=== PATIENT | female | born 1990 | race Caucasian/White ===

== ENCOUNTER 2018-05-25 07:21 | Emergency (ER) | payer MEDICAID, SELFPAY ==
[2018-05-25 07:30] VITALS: BP 140/83; PULSE 70; RESP 16; TEMP 36.6; O2SAT 99
[2018-05-25 07:32] LABS: Clarity Clear; Glucose 100 mg/dL (Negative); Nitrite Positive (Negative); pH 8.5 (5-8)
[2018-05-25 07:36] LABS: Bilirubin Color Interference (Negative); Blood Color Interference (Negative); Ketones Color Interference mg/dL (Negative)
[2018-05-25 07:37] LABS: Leukocyte Esterase Color Interference (Negative)
[2018-05-25 07:40] LABS: Bacteria Packed HPF (Negative); Casts Negative LPF (Negative); Crystals Negative HPF (Negative); Epithelial Cells Many HPF (Negative); Mucus Negative (Negative)
[2018-05-25 07:41] LABS: C & S Indicated? No/Sq. Contamination
--- NOTE | 2018-05-25 08:07 | DI.RPTCT_ITS ---
SYMPTOM/DIAGNOSIS: BILAT FLANK PAIN WITH LOW ABD PAIN ABDOMEN AND PELVIC CT: The study was carried out according to the usual protocol. No acute abnormality is noted in the lung bases. The liver is intact. The patient is status post cholecystectomy. The pancreas and spleen are intact. There is bilateral nephrolithiasis and moderately severe left hydronephrosis is demonstrated. Perinephric fat stranding is identified. There is ureterectasis without a definite stone identified. There is no evidence of right hydronephrosis, ureterectasis or ureterolithiasis. A distended bladder is demonstrated and there is an apparent very small stone on the bladder floor. There is no evidence of bowel obstruction. The appendix is normal. No localized inflammatory process or bowel wall mass is apparent. There is a sizable ventral hernia containing fat and small bowel loops with no evidence of incarceration. There is no evidence of free air or free fluid in the intraperitoneal space. There is no evidence of an aortic aneurysm. The bony structures appear intact. IMPRESSION: Bilateral nephrolithiasis is demonstrated and there is moderately severe left hydronephrosis and hydroureter without demonstration of a ureteral calculus. Note is made of a very small calculus on the bladder floor. On the right side, nephrolithiasis is evident. There is no evidence of a ureteral calculus. As noted above, there is a large ventral hernia containing fat and small bowel loops without evidence of incarceration.
--- NOTE | 2018-05-25 08:12 | ED.GENADUL_ITS ---
Disposition Clinical Impression: Pain due to calculus of kidney, UTI (urinary tract infection) Disposition: HOME Condition: Good Instructions: Urinary Tract Infection in Women (ED), Kidney Stones (ED) Additional Instructions: Please take Tylenol and Motrin for your pain. Please drink 8-10 cups of water per day. Please take the home prescription you were given at [facility] of Keflex 500 mg 3 times a day. Please take this as directed. Do not miss any doses. Please follow-up with Dr. Blevins's office as soon as a contact you for follow- up. If you do not hear from them please contact their office. If you notice any worsening of your symptoms, or any new symptoms such as vomiting, diarrhea, fever, chills, shortness of breath, chest pain, numbness, weakness, or fainting , please return immediately to the emergency department for reevaluation. Please follow up with your primary care provider as soon as possible for reassessment and reevaluation. As always, it was a pleasure participating in your medical care today. Referrals: Qasim Blevins MD [ [facility]] - Medical Decision Making - Lab Data Laboratory Tests 05/25/18 07:28 Urine Color [place] Urine Clarity Clear Urine pH 8.5 H Ur Specific [place] 1.020 Urine Protein 30 H Urine Ketones Color interference Urine Blood Color interference Urine Nitrite Positive H Urine Bilirubin Color interference Urine Urobilinogen 1.0 H Ur Leukocyte Esterase Color interference Urine RBC 3-5 H Urine WBC 3-5 Ur Epithelial Cells Many Urine Crystals Negative Urine Bacteria Packed Urine Casts Negative Urine Mucus Negative Ur Culture Indicated? No/sq. contamination Urine Glucose 100 - Medical Decision Making This is a 27-year-old female who presents with bilateral flank pain and abdominal pain with associated night sweats, vomiting, and discomfort. She was seen at [facility] last night where she had a urinalysis notably positive for UTI. She is given a dose of oral Keflex in the ED and sent home with a prescription. She has had no improvement of her symptoms and actual worsening of her symptoms since then. Physical exam demonstrates notable reproducible flank tenderness, as well as notable reproducible left and right lower quadrant tenderness on palpation. With reproducible tenderness I am concerned for potential acute abdominal process in addition to UTI. We will get a CT scan to rule out any appendicitis or diverticulitis. We will treat her pain rehydrate the patient. 9:48 AM Patient demonstrates no elevated white count, normal vital signs, she is afebrile. Urinalysis does demonstrate evidence concerning for mild urinary tract infection. The patient's pain is well controlled at this time. CT scan of the abdomen per radiologist demonstrates no acute process, evidence of nephrolithiasis, and one small stone in the bladder which may have been a passed stone. No significant fat stranding, signs of appendicitis or diverticulitis, and no evidence of cure and obstructing uropathy. With no evidence of obstructing uropathy, obstructing kidney stone, pain well controlled , and normal white count I do feel that the patient is safe for discharge. I did discuss the case with Dr. Blevins's office and spoke with his nurse practitioner Marilia Chaney and discussed the case with her including the laboratory findings, the CT imaging with no evidence of obstructing uropathy per radiology, and the medications that have been given as well as the follow- up plan and outpatient medications. She agrees and has no additional recommendations at this time. She is given 2 g of Rocephin here in the emergency department which I feel is appropriate at this time with no signs of severe pyelonephritis, or obstructing uropathy. The patient's renal function is minimally increased, however after hydration and continued hydration as well as suspected passing of a stone feel that this will normalize but does require close follow-up. I feel her symptoms most likely secondary to a past urolithiasis. With no identifiable pathology in the abdomen, and resolved pain and normal CT scan I feel that she is still stable for discharge. She has no primary care provider and so we will have her follow-up with Dr. Blevins's clinic as soon as possible for reassessment. She is moving to [place], we have discussed with case management potential PCP however because this is out of her jurisdiction we will discuss with patient how she can find follow-up with a primary care provider in new location. We discussed red flags which to return including systemic signs of infection, as well as other potential intra- abdominal pathologies and patient understands. I have extensively reviewed the treatment plan and discharge instructions with the patient. I have addressed all patient concerns at this time. The patient was made aware of what symptoms to monitor for that would warrant a return to the emergency department. Discussed the plan with the patient, they demonstrate verbal understanding and agreement with our assessment and plan at this time. History of Present Illness - General Chief complaint: Urinary Stated complaint: KIDNEY PAIN Time Seen by Provider: 05/25/18 07:42 - History of Present Illness Initial comments: This is a 27-year-old female with a past medical history of bladder infections, pyelonephritis, and urolithiasis. She presents today complaining of flank pain. She states that it started last night, it occurs in both flanks and radiates towards her groin. He was mild last night she went to [facility] where urinalysis was positive for evidence of nitrites, leukocyte esterase, bacteria, and elevated WBCs compared RBCs. She was given 1 dose of oral Keflex there, and then sent home with a prescription for Keflex. The patient has taken Tylenol and Motrin, last time at 2 AM, and has had no improvement of her symptoms since then. She states that her symptoms actually feel worse now. She has had associated sweats and chills throughout the night, as well as worsening flank pain, and one episode of nausea and vomiting. She denies any diarrhea, hematemesis, or hematochezia. She states that this feels similar to her previous UTIs but noticeably worse. She states that it feels dissimilar from her previous kidney stone episodes. The patient denies any dysuria, hematuria, increase in urinary frequency. Patient denies any other systemic symptoms. Past surgical history is positive for hysterectomy and a C- section. Patient denies any IV or illicit drug use. She is regularly on methadone per home medication list. Patient denies any other complaints at this time. She denies any pertinent family or social history. - Related Data Methadone HCl 70 mg PO DAILY #70 mg 07/23/16 Docusate Sodium [Colace] 100 mg PO BID #60 cap 08/18/16 Ibuprofen 800 mg PO PRN PRN 04/22/17 Allergies Allergy/AdvReac Type Severity Reaction Status Date / Time No Known Allergies Allergy Unverified 05/25/18 07:35 Review of Systems Other: 10 point review of systems was performed, pertinent positives and negatives are noted in the history of present illness. Past Medical History - Past Medical History drug abuse, pancreatitis, hep c Surgical history: cholecystectomy, - Social History Alcohol use: none Drug use: none General Exam - Other Other exam information: 1.Const: Well-nourished, Well-developed, appearing stated age 2.Eyes: PERRL, no conjunctival injection, and symmetrical lids. 3.ENT: Atraumatic external nose and ears. Moist MM. Neck: Symmetric, trachea midline, No thyromegaly. 4.CVS: +S1/S2, No murmurs or gallops. Peripheral pulses 2+ and equal in all extremities. Brisk capillary refill in all extremities. 5.RESP: Unlabored respiratory effort. Clear to auscultation bilaterally. No wheezes rales or rhonchi 6.GI: Abdomen is soft, no guarding or rebound. Patient does have notable tenderness in all regions of the abdomen, particularly the left and right lower abdominal quadrants. She also has reproducible tenderness on percussion of the flanks bilaterally. Mild suprapubic tenderness. Negative Bautista sign. 7.MSK: Normocephalic/Atraumatic, Extremities w/o deformity or ttp No cyanosis or clubbing, Normal movement of all extremities 8.Skin: Warm, Dry. No rashes or lesions. 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 Sensation grossly intact, no focal neurologic deficits. 10.Psych: (AAO) x3. Appropriate mood and affect Course Vital Signs - 24 hr 05/25/18 07:30 Temperature 36.6 C Pulse 70 Respiratory 16 Rate Blood Pressure 140/83 Pulse Oximetry 99
[2018-05-25 08:15] LABS: Clarity Clear; Specific Gravity 1.022 (1.005-1.025)
[2018-05-25] MEDS: Normal Saline 1,000 ML 1000 ML IV (08:15)
[2018-05-25] MEDS: Acetaminophen 500 MG TAB 1000 MG PO (08:15)
[2018-05-25 08:16] LABS: Bilirubin Color Interference (Negative); Blood Color Interference (Negative); Glucose Color Interference mg/dL (Negative); Ketones Color Interference mg/dL (Negative); Leukocyte Esterase Color Interference (Negative); Nitrite Color Interference (Negative); Urobilinogen Color Interference EU/dL (Up TO 0.2)
[2018-05-25 08:20] LABS: Abs Immature Grans 0.03 k/cumm (0.0-0.09); Absolute Basophil Count 0.01 k/cumm (0.0-0.2); Absolute Lymphocyte Count 1.68 k/cumm (1.2-3.4); Absolute Monocyte Count 0.54 k/cumm (0.11-0.7); Basophils % 0.1; HCT 42.6 % (36.0-46.0); HGB 14.8 g/dL (12.0-15.5); Immature Grans % 0.3; Lymphocytes % 16.9; Mean Corp. HGB Concentration 34.7 g/dL (32.0-36.0); Mean Corpuscular Hemoglobin 28.8 pg (27.0-33.0); Mean Platelet Volume 8.1 fL (8.0-11.0); Monocytes % 5.4; Neutrophils % 77.3; Platelet Count 299 x1000/uL (130-400); RBC 5.13 m/cumm (4.00-5.20); RBC Distribution Width 12.9 % (11.7-14.6); White Blood Cell Count 9.96 k/cumm (4.4-10.8)
[2018-05-25] MEDS: Ketorolac 30 MG/ML VIAL IM (08:20)
[2018-05-25 08:24] LABS: Bacteria Moderate HPF (Negative); C & S Indicated? No/Sq. Contamination; Casts Negative LPF (Negative); Crystals Negative HPF (Negative); Epithelial Cells Moderate HPF (Negative); Mucus Trace (Negative); RBC 0-2 (0-2)
[2018-05-25 08:32] LABS: ALT 33 U/L (12-78); AST 27 U/L (15-37); Albumin 3.8 g/dL (3.4-5.0); Alkaline Phosphatase 70 U/L (46-116); Anion Gap 10.1 mmol/L (3-11); BUN 18 mg/dL (7-18); Bilirubin, Total 0.4 mg/dL (0.2-1.0); CO2 25.9 mmol/L (21.0-32.0); CREATININE 1.17 mg/dL (0.55-1.02); Calcium 8.7 mg/dL (8.5-10.1); Chloride 102 mmol/L (98-107); Estimated GFR 55.08 (mL/min/1.73m2); Glucose 113 mg/dL (70-100); Lipase 155 U/L (73-393); Potassium 3.9 mmol/L (3.5-5.1); Sodium 138 mmol/L (136-145)
[2018-05-25] MEDS: MORPHine 10 MG/ML VIAL 4 MG IVP (09:03)
--- NOTE | 2018-05-25 09:20 | NUR.NOTE ---
Nursing Note: has had breakfast , taken her am meds. has been easy to care for. has just asked for mental health person-pt states she is dying for a cigarette and wants to do something on an out patient basis. relayed to Dr Sanchez.
[2018-05-25 10:04] VITALS: BP 114/69; PULSE 63; RESP 16; TEMP 36.7; O2SAT 96
--- NOTE | 2018-05-25 15:19 | CMPROGNOTE_ITS ---
Care Management Progress Note 05/25-Dr. Sanchez requested assistance with an urology consult for kidney stone- passed and UTI. Dr Sanchez has spoken with Marilia Chaney NP in urology about this patient. [facility].
== END 2018-05-25 10:03 | disposition home or self-care (01) ==
PROVIDERS: Emergency Medicine; Emergency Provider Student in an Organized Health Care Education/Training Program
DX: N23 Unspecified renal colic (principal); N39.0 Urinary tract infection, site not specified; Z87.440 Personal history of urinary (tract) infections; Z87.442 Personal history of urinary calculi
CPT/HCPCS: 36415; 80053; 81025; 83690; 96361; 96365; 96372; 96375; 99284; 74176; 81003; 81015; 85025; 87086; J1885; J2270

== ENCOUNTER 2018-06-11 09:27 | Emergency (ER) | payer MEDICAID, SELFPAY ==
[2018-06-11 09:30] VITALS: BP 138/83; PULSE 98; RESP 16; TEMP 36.6; O2SAT 94
--- NOTE | 2018-06-11 10:04 | W.ED.GENAD ---
Discharge Plan Disposition Patient Disposition: HOME Condition: Improving Discharge Details Chief Complaint: RespSymp Clinical Impression: Acute bronchitis with bronchospasm ED Provider: Pradeep Alicea Home Meds and New Rx's Prescriptions: New prednisone 20 mg tablet 40 mg PO DAILY 5 Days Qty: 10 RF: 0 Continue methadone 10 MG/ML concentrate 70 mg PO DAILY Qty: 70 RF: 0 docusate sodium [Colace] 100 MG capsule 100 mg PO BID Qty: 60 RF: 4 ibuprofen 800 MG tablet 800 mg PO PRN PRNRF: 0 Discharge Instructions Instructions: Acute Bronchitis (ED) Medical Decision Making MDM Narrative Medical decision making narrative: This is a pleasant 27-year-old female smoker who presents with progressive cough and production of sputum over days time. She has had associated wheeze. On exam she has bilateral end expiratory wheeze but is not in respiratory distress. She likely does have a exacerbation of COPD, differential diagnosis would include bronchitis and pneumonia. The patient was given oral steroids, inhaled beta agonist, referred for chest x-ray. Patient improved with the intervention. Her chest x-ray is currently being read by the virtual radiology group. There is no infiltrate that I appreciate. We will start her on a course of antibiotics, burst steroids, she will be provided an albuterol inhaler with instruction. She will follow-up to establish primary care. HPI - General Adult General Mode of arrival: ambulatory. Date/Time Provider Initiated Documentation: 06/11/18 09:58. Limitations to Documentation: no limitations. Information obtained by: patient. History of Present Illness 27 year old F presents to the emergency department with the chief complaint of Wheezing and cough, described as mild and moderate, Quality is described as constant, and is localized to the chest. Patient reports no radiation. Patient started experiencing this day(s) and it has been constant. No relieving factors improve symptom(s), Other factors that worsen symptoms . Patient notes cough. HPI Narrative: 19-year-old female smoker presents with 7 days of progressive cough, wheeze, production of sputum that change to green over the past 2 days time. She has minimal associated constitutional symptoms but does complain of some loose stool and nausea with decreased p.o. intake. Positive sick contacts in the home. She continues to smoke approximately one half pack per day. No changes to medical history. She has otherwise recently been well Related Data Home Medications Medication Instructions Recorded Confirmed methadone 70 mg PO DAILY #70 mg 07/23/16 06/11/18 docusate sodium [Colace] 100 mg PO BID #60 cap 08/18/16 06/11/18 ibuprofen 800 mg PO PRN PRN 04/22/17 06/11/18 Previous Rx's Medication Instructions Recorded prednisone 40 mg PO DAILY 5 Days #10 tab 06/11/18 Allergies Allergy/AdvReac Type Severity Reaction Status Date / Time No Known Allergies Allergy Unverified 06/11/18 09:34 General Stated Complaint: RespSymp JAISON: 4 Review of Systems Review of Systems 8 systems reviewed and otherwise neg PFSH Family History Mother Substance abuse Alcohol abuse Essential hypertension Mental disorder Father Mental disorder Sister Mental disorder Medical History Alcohol abuse Drug abuse (10/20/15) Hepatitis C infection Infected dental carries (10/20/15) Pancreatitis Tobacco use Social History Smoking/Tobacco Use Status: Current every day alcohol intake: former substance use type: former substance user Date of last use: crack/cocaine jelani/latter-day: Episcopalian Surgical History section (~2007) Cholecystectomy (01/17/15) Exam Narrative Exam Narrative: GEN: awake, alert, oriented 3. Pleasant, well groomed, interactive. HEAD: Normocephalic, atraumatic ENT: Mucous membranes moist, oropharynx unremarkable, External ear exam unremarkable EYES: PERRL, EOMI NECK: Full ROM, no PATI, no menigismus CHEST/RESP: Nontender, bilateral and expiratory wheeze present, speaking in full sentences CARDIOVASCULAR: RRR, no murmur, rub hanna. 2+ Rad pulse bilateral ABDOMEN: Soft, nontender, no mass. +Bowel sounds EXT: Full ROM, no edema, no rash Neuro: Grossly normal neurologic exam, conversant, interactive. Psych: Speech fluent, thoughts congruent, affect normal Course Vital Signs Temperature 36.6 C 06/11/18 09:30 Pulse 98 H 06/11/18 09:30 Respiratory Rate 16 06/11/18 09:30 Blood Pressure 138/83 06/11/18 09:30 Pulse Oximetry 94 L 06/11/18 09:30 Temperature 36.6 C 06/11/18 09:30 Pulse 98 H 06/11/18 09:30 Respiratory Rate 16 06/11/18 09:30 Blood Pressure 138/83 06/11/18 09:30 Pulse Oximetry 94 L 06/11/18 09:30
--- NOTE | 2018-06-11 10:08 | ED.GENADUL_ITS ---
Discharge Plan Disposition Patient Disposition: HOME Condition: Improving Discharge Details Chief Complaint: RespSymp Clinical Impression: Acute bronchitis with bronchospasm ED Provider: Pradeep Alicea Home Meds and New Rx's Prescriptions: New prednisone 20 mg tablet 40 mg PO DAILY 5 Days Qty: 10 RF: 0 Continue methadone 10 MG/ML concentrate 70 mg PO DAILY Qty: 70 RF: 0 docusate sodium [Colace] 100 MG capsule 100 mg PO BID Qty: 60 RF: 4 ibuprofen 800 MG tablet 800 mg PO PRN PRNRF: 0 Discharge Instructions Instructions: Acute Bronchitis (ED) Medical Decision Making MDM Narrative Medical decision making narrative: This is a pleasant 27-year-old female smoker who presents with progressive cough and production of sputum over days time. She has had associated wheeze. On exam she has bilateral end expiratory wheeze but is not in respiratory distress. She likely does have a exacerbation of COPD , differential diagnosis would include bronchitis and pneumonia. The patient was given oral steroids, inhaled beta agonist, referred for chest x- ray. Patient improved with the intervention. Her chest x-ray is currently being read by the virtual radiology group. There is no infiltrate that I appreciate. We will start her on a course of antibiotics, burst steroids, she will be provided an albuterol inhaler with instruction. She will follow-up to establish primary care. HPI - General Adult General Mode of arrival: ambulatory . Date/Time Provider Initiated Documentation: 06/11/18 09:58 . Limitations to Documentation: no limitations . Information obtained by: patient . History of Present Illness 27 year old F presents to the emergency department with the chief complaint of Wheezing and cough, described as mild and moderate, Quality is described as constant, and is localized to the chest. Patient reports no radiation. Patient started experiencing this day(s) and it has been constant. No relieving factors improve symptom(s), Other factors that worsen symptoms . Patient notes cough. HPI Narrative: 19-year-old female smoker presents with 7 days of progressive cough, wheeze, production of sputum that change to green over the past 2 days time. She has minimal associated constitutional symptoms but does complain of some loose stool and nausea with decreased p.o. intake. Positive sick contacts in the home. She continues to smoke approximately one half pack per day. No changes to medical history. She has otherwise recently been well Related Data Home Medications Medication Instructions Recorded Confirmed methadone 70 mg PO DAILY #70 mg 07/23/16 06/11/18 docusate sodium [Colace] 100 mg PO BID #60 cap 08/18/16 06/11/18 ibuprofen 800 mg PO PRN PRN 04/22/17 06/11/18 Previous Rx's Medication Instructions Recorded prednisone 40 mg PO DAILY 5 Days #10 tab 06/11/18 Allergies Allergy/AdvReac Type Severity Reaction Status Date / Time No Known Allergies Allergy Unverified 06/11/18 09:34 General Stated Complaint: RespSymp JAISON: 4 Review of Systems Review of Systems 8 systems reviewed and otherwise neg PFSH Family History Mother Substance abuse Alcohol abuse Essential hypertension Mental disorder Father Mental disorder Sister Mental disorder Medical History Alcohol abuse Drug abuse (10/20/15) Hepatitis C infection Infected dental carries (10/20/15) Pancreatitis Tobacco use Social History Smoking/Tobacco Use Status: Current every day alcohol intake: former substance use type: former substance user Date of last use: crack/cocaine jelani/mu-ism: Hindu Surgical History section (~2007) Cholecystectomy (01/17/15) Exam Narrative Exam Narrative: GEN: awake, alert, oriented 3. Pleasant, well groomed, interactive. HEAD: Normocephalic, atraumatic ENT: Mucous membranes moist, oropharynx unremarkable, External ear exam unremarkable EYES: PERRL, EOMI NECK: Full ROM, no PATI, no menigismus CHEST/RESP: Nontender, bilateral and expiratory wheeze present, speaking in full sentences CARDIOVASCULAR: RRR, no murmur, rub hanna. 2+ Rad pulse bilateral ABDOMEN: Soft, nontender, no mass. +Bowel sounds EXT: Full ROM, no edema, no rash Neuro: Grossly normal neurologic exam, conversant, interactive. Psych: Speech fluent, thoughts congruent, affect normal Course Vital Signs Temperature 36.6 C 06/11/18 09:30 Pulse 98 H 06/11/18 09:30 Respiratory Rate 16 06/11/18 09:30 Blood Pressure 138/83 06/11/18 09:30 Pulse Oximetry 94 L 06/11/18 09:30 Temperature 36.6 C 06/11/18 09:30 Pulse 98 H 06/11/18 09:30 Respiratory Rate 16 06/11/18 09:30 Blood Pressure 138/83 06/11/18 09:30 Pulse Oximetry 94 L 06/11/18 09:30
[2018-06-11] MEDS: predniSONE 20 MG TAB 60 MG PO (10:13)
[2018-06-11 10:15] VITALS: RESP 18; RESP 19
[2018-06-11] MEDS: Albuterol/Ipratropium 3 ML UPD VIAL UPD (10:15)
--- NOTE | 2018-06-11 10:53 | DI.RAD_ITS ---
SYMPTOM/DIAGNOSIS: COUGH, WHEEZE, SMOKER PA AND LATERAL CHEST: Comparison is made with 02/09/16. Heart size and pulmonary vasculature are within normal limits. There is an infiltrate seen in the right middle lobe. The lungs are otherwise clear. No effusions or pneumothoraces are identified. The bones are intact. IMPRESSION: Right middle lobe infiltrate. This may represent a pneumonia. Follow up chest xray is recommended to document complete resolution of the infiltrate.
[2018-06-11 11:01] VITALS: BP 123/78; PULSE 95; RESP 16; O2SAT 3
[2018-06-11] MEDS: Albuterol HFA 8 GM 60 PUFF INH IH (11:05)
--- NOTE | 2018-06-11 11:33 | DI.VRAD_ITS ---
EXAM: XR Chest, 2 Views CLINICAL HISTORY: 27 years old, female; Signs and symptoms; Cough and wheezing; Patient HX: Productive cough x1 week, wheeze, smoker. TECHNIQUE: Frontal and lateral views of the chest. COMPARISON: CR - CHEST 2 VIEWS PA,LAT 02/09/2016 6:49 PM FINDINGS: The lung correia are clear bilaterally. No focal pulmonary consolidation is present. The cardiac silhouette is within normal limits. The costophrenic angles are sharp. The bony structures appear unremarkable. IMPRESSION: No evidence of acute cardiopulmonary disease. Dictated and Authenticated by: Marin Burger MD. Ordering:ALEXEY KENT MD
--- NOTE | 2018-06-13 11:18 | PDOC.ERCMPRO ---
Care Management Progress Note 06/13/18-Pt seen on 06/11/[address] for resp[address] Rajendra Alicea. Request for pt to establish PCP faxed too [facility] as Barney Lewis was senior production manager.
--- NOTE | 2018-06-13 11:19 | CMPROGNOTE_ITS ---
Care Management Progress Note 06/13/18-Pt seen on 06/11/18 for resp[address] symptoms [address] Rajendra Alicea. Request for pt to establish PCP faxed too [facility] as Barney Lewis was radiation technician.
== END 2018-06-11 11:08 | disposition home or self-care (01) ==
LOC: ER 11:09
PROVIDERS: Emergency Provider Emergency Medicine
DX: J20.9 Acute bronchitis, unspecified (principal)
CPT/HCPCS: 94640; 99284; 71046; J7512; J7620

== ENCOUNTER 2018-07-11 08:39 | Emergency (ER) | payer MEDICAID, SELFPAY ==
[2018-07-11 08:56] VITALS: BP 125/79; PULSE 91; RESP 17; TEMP 36.6; O2SAT 95
--- NOTE | 2018-07-11 09:22 | ED.GENADUL_ITS ---
Discharge Plan Disposition Patient Disposition: HOME Condition: Good Discharge Details Chief Complaint: DentalOral Clinical Impression: UTI (urinary tract infection), Chronic gingivitis Primary Care Provider: Unknown,Unknown ED Provider: Lex Maier Home Meds and New Rx's Prescriptions: New amoxicillin-pot clavulanate [Augmentin] 250-62.5 mg/5 mL suspension for reconstitution 5 ml PO TID 10 Days Qty: 150 RF: 0 hydrogen peroxide [Peroxide Sore Mouth Cleanser] 1.5 % solution 10 ml MM QID Qty: 1416 RF: 0 No Action methadone 10 MG/ML concentrate 90 mg PO DAILY Qty: 70 RF: 0 ibuprofen 800 MG tablet 800 mg PO PRN PRNRF: 0 Discharge Instructions Instructions: Urinary Tract Infection in Women (ED), Gingivostomatitis (ED) Referrals: [facility] Emergency Dept. [Outside] - Return if symptoms worsen Discharge Data Discharge Date/Time-TO BE ENTERED AT DEPARTURE: 07/11/18 10:10 Medical Decision Making I do not appreciate an abscess to drain. Her urine returned with >50 wbc's, bacteria and nitrite positive. I do believe she has a dental infection as well as a uti. I referenced PEPID and Augmentin was secondary choice for UTI. She was prescribed Augmentin 250 TID for ten days. Advised to f/u with dentist and/ or pcp if no improvement. Return to ED if symptoms worsen. She agreed with POC. Lab Data Lab results reviewed: Yes I reviewed the patient's lab results. Lab results narrative: Positive for nitrites, >wbc and bacteria. HPI General Date/Time Provider Initiated Documentation: 07/11/18 09:11 . Limitations to Documentation: no limitations . Information obtained by: patient and family . History of Present Illness 27 year old F presents to the emergency department with the chief complaint of dental infection and UTI, described as mild, and is localized to the mouth. Patient reports no radiation. Patient started experiencing this hour(s) (24 ) and it has been constant. No relieving factors improve symptom(s), No exacerbating factors reported . Patient notes no other symptoms.. Patient did receive the following treatments prior to arrival, none HPI Narrative: 27 y/o female here with c/o oral gum pain and swelling to her upper front lip for the last 48 hours. Also she has had burning with urination over the last 24 hours. She has provided a urine for UA. She tells me she started having burning with urination yesterday. Denies any N/V/D, fever or chills. Related Data Home Medications Medication Instructions Recorded Confirmed methadone 90 mg PO DAILY #70 mg 07/23/16 07/11/18 ibuprofen 800 mg PO PRN PRN 04/22/17 07/11/18 amoxicillin-pot clavulanate 5 ml PO TID 10 Days #150 ml 07/11/18 [Augmentin] hydrogen peroxide [Peroxide Sore 10 ml MM QID #1416 ml 07/11/18 Mouth Cleanser] Previous Rx's Medication Instructions Recorded amoxicillin-pot clavulanate 5 ml PO TID 10 Days #150 ml 07/11/18 [Augmentin] hydrogen peroxide [Peroxide Sore 10 ml MM QID #1416 ml 07/11/18 Mouth Cleanser] Allergies Allergy/AdvReac Type Severity Reaction Status Date / Time No Known Allergies Allergy Unverified 06/11/18 09:34 General Stated Complaint: DentalOral JAISON: 4 Review of Systems Constitutional Reports as per [facility] ENT Reports system reviewed and no additional complaints, except as [facility] Cardiovascular Reports system reviewed and no additional complaints, except as docu Respiratory Reports system reviewed and no additional complaints, except as docu Gastrointestinal Reports system reviewed and no additional complaints, except as docu Genitourinary Denies hematuria, Denies flank pain and Reports urinary urgency (with burning) Exam Const General: cooperative and well groomed Nutritional Appearance: overweight Orientation: alert, awake and oriented x3 HENMT Head: normal to inspection Ears: hearing grossly normal bilaterally and TM's normal bilaterally General nose exam: external nose normal Nose image: 2 1. swelling, no palbable or fluctuance noted Face and sinus: sinuses nontender Face images: 2 1. swelling noted Mouth: tongue normal, salivary ducts normal, oropharynx normal, no drooling, lip abnormal (swelling to upper lip), breath no malodorous and no trismus Teeth and gingiva: abnormal tooth or associated gingiva (moderate decay to all dentition with swelling to upper lip. No abscess palpated. ), caries and poor dentition Teeth image: 2 1. Most problematic, with moderate decay and mucosal redness and tenderness Throat: posterior oropharynx normal Resp Effort & Inspection: normal respiratory effort Auscultation: clear to auscultation bilaterally Cardio Rate: regular rate Rhythm: regular rhythm Heart Sounds: S1 normal and S2 normal GI Inspection: non-distended Palpation: soft Auscultation: normal bowel sounds Back/Spine/Pelvis Back: no CVA tenderness Skin General skin exam: no rashes or lesions noted Neuro General: alert, awake and oriented x3 Gait: normal gait Course Vital Signs Temperature 36.6 C 07/11/18 08:56 Pulse 91 H 07/11/18 08:56 Respiratory Rate 17 07/11/18 08:56 Blood Pressure 125/79 07/11/18 08:56 Pulse Oximetry 95 07/11/18 08:56 Temperature 36.6 C 07/11/18 08:56 Temperature Source Temporal Artery Scan 07/11/18 08:56 Pulse 91 H 07/11/18 08:56 Respiratory Rate 17 07/11/18 08:56 Respiratory Effort 07/11/18 09:00 Blood Pressure 125/79 07/11/18 08:56 Pulse Oximetry 95 07/11/18 08:56 Oxygen Delivery Method Room Air 07/11/18 08:56 Oxygen Flow Rate 0 07/11/18 08:56 Pain Level 6 07/11/18 08:56
[2018-07-11 09:34] LABS: Bilirubin Negative (Negative); Blood Negative (Negative); Clarity Clear; Glucose Negative (Negative); Ketones Negative (Negative); Leukocyte Esterase Trace (Negative); Nitrite Positive (Negative); Specific Gravity 1.015 (1.005-1.025); Urobilinogen 0.2 EU/dL (Up TO 0.2); pH 8.5 (5-8)
[2018-07-11] MEDS: Lidocaine 2% Viscous 15 ML CUP PO (09:44)
[2018-07-11 09:45] LABS: Bacteria Many HPF (Negative); C & S Indicated? Yes; Casts Negative LPF (Negative); Crystals Negative HPF (Negative); Epithelial Cells Few HPF (Negative); Mucus Trace (Negative); RBC Negative (0-2); WBC >50 HPF (0-5)
== END 2018-07-11 10:10 | disposition home or self-care (01) ==
PROVIDERS: Emergency Provider Nurse Practitioner Family
DX: K05.10 Chronic gingivitis, plaque induced (principal); N39.0 Urinary tract infection, site not specified; B96.89 Other specified bacterial agents as the cause of diseases classified elsewhere; R60.0 Localized edema
CPT/HCPCS: 87077; 99283; 81003; 81015; 87086; 87186

== ENCOUNTER 2018-08-28 15:39 | Emergency (ER) | payer MEDICAID, SELFPAY ==
[2018-08-28] VITALS (15 sets, daily range): BP systolic 99–136; BP diastolic 59–84; PULSE 71–88; RESP 6–19; TEMP 36.7–36.9; O2SAT 95–100
--- NOTE | 2018-08-28 15:46 | DI.RAD_ITS ---
SYMPTOMS/DIAGNOSIS: CHEST PAIN, COUGH PA AND LATERAL CHEST: Comparison 06/11/18. The heart is normal in size. The lungs are clear. The mediastinal structures and pleura appear intact. CONCLUSION: Normal chest.
--- NOTE | 2018-08-28 15:51 | W.ED.GENAD ---
Discharge Plan Disposition Patient Disposition: HOME Condition: Fair Discharge Details Chief Complaint: Chest Pain Clinical Impression: Chest pain Primary Care Provider: Unknown,Unknown ED Provider: Esther Pérez Home Meds and New Rx's Prescriptions: Continue methadone 10 MG/ML concentrate 90 mg PO DAILY Qty: 70 RF: 0 hydrogen peroxide [Peroxide Sore Mouth Cleanser] 1.5 % solution 10 ml MM QID Qty: 1416 RF: 0 ibuprofen 800 MG tablet 800 mg PO PRN PRNRF: 0 Discharge Instructions Instructions: Chest Pain (ED) Additional Instructions: Encourage hydration. Tylenol and/or Motrin as needed for discomfort. You may take 1,000mg of Tylenol every 6 hours as needed, 600mg of Ibuprofen every 6 hours needed for discomfort. At this time, you have decline second troponin. However, if your pain increased, you develop shortness of breath, fevers/chills or other new/worsening symptoms please seek care urgently once again. Please follow up with primary care this week for reevaluation. I have asked our acute care physical therapist to help facilitate follow up. Discharge Data Discharge Date/Time-TO BE ENTERED AT DEPARTURE: 08/28/18 17:26 Medical Decision Making Patient is a 27-year-old female presenting with chief complaint of chest pain. She reports that while sedentary, approximately 30 minutes prior to arrival, she began having central substernal chest pain that radiates up to the neck. She has no shortness of breath. States she has had a cough for the past month. Denies any fevers or chills. Denies any nausea or vomiting. Reports she has had chest pain similar to this historically. States the pain is 7 out of 10 at this time and is remained constant since onset. Reports the chest pain does increase with cough. Denies any recent trauma Has history of narcotic abuse, pancreatitis, UTI, back pain, scoliosis. She is status post hysterectomy On exam, patient appears nontoxic. Vital signs within normal limits. Lungs are clear on exam. Patient is noted to be in normal sinus rhythm, no murmur rub or gallops noted. Calves are soft and nontender. No pedal edema. Patient does not appear in any acute distress. Pain is easily reproducible with palpation of the chest. No palpable abnormality, no crepitus EKG reviewed by Dr. Blue. Patient is noted to have T wave abnormality, this is compared to previous EKG and remains unchanged. No acute ischemic findings. Patient is in normal sinus rhythm with a rate of 73. We will obtain laboratory evaluation, chest x-ray. Patient is endorsing discomfort. We will give her aspirin and Tylenol to help with pain. At this point, her pain does not sound cardiac in nature. No exertional component. This is easily reproducible on exam. This may be inflammatory based, possibly associated with cough. Also considered infectious source as she has had cough recently, lungs are clear. CXR and labs pending. Chest x-ray reviewed by radiologist. Advised no acute pulmonary disease. No acute changes compared to previous. No pleural effusion or pneumothorax. No consolidation. No Cardiomegaly. Labs reviewed, no acute abnormalities appreciated. No leukocytosis. D-dimer is within normal limits. Troponin is less than 0.02. Discussed these findings with the patient. Advised that this point there is no evidence of pneumonia, PE or other infectious source. Patient's age and history are also reassuring for this likely not being a cardiac source along with the patient's history of symptoms. EKG and initial tropinin are WNL. We did discuss again that her discomfort could be inflammatory based. I did advise, particularly as the pain began 30 minutes prior to arrival, we perform a repeat troponin. However, patient is refusing at this time as I do not have time for that. Patient was given aspirin and Tylenol to help with her discomfort which she reports that helped some. However, she is requesting further pain medication. I did offer the patient Toradol which she declined. Reports that never works. I discussed other nonnarcotic options with the patient and she declines. This point, vital signs remained stable, laboratory, EKG and imaging is reassuring. Patient I discussed the risks associated with missed cardiac events and she continues to decline repeat troponin. She is aware that she may return at any time for reevaluation and continued care. I did advise follow-up with primary care, I have asked her acute care physical therapist help facilitate follow-up in 1 week. We discussed new/worsening symptoms when to seek care urgently once again. All of her questions and concerns were addressed and she is in agreement with this plan. HPI General Mode of arrival: ambulatory. Date/Time Provider Initiated Documentation: 08/28/18 15:40. Limitations to Documentation: no limitations. Information obtained by: patient. History of Present Illness 27 year old F presents to the emergency department with the chief complaint of chest pain, described as moderate, with intensity rated at 6. Quality is described as aching, and is localized to the chest. Patient neck. Patient started experiencing this minute(s) (30) and it has been constant. No relieving factors improve symptom(s), Movement worsens symptoms and Other factors that worsen symptoms (coughing) . Patient notes chest pain and cough; denies fever/chills, headaches, loss of appetite, nausea/vomiting, rash and shortness of breath. Patient did receive the following treatments prior to arrival, none Related Data Home Medications Medication Instructions Recorded Confirmed methadone 90 mg PO DAILY #70 mg 07/23/16 08/28/18 ibuprofen 800 mg PO PRN PRN 04/22/17 08/28/18 hydrogen peroxide [Peroxide Sore 10 ml MM QID #1416 ml 07/11/18 08/28/18 Mouth Cleanser] Previous Rx's Medication Instructions Recorded hydrogen peroxide [Peroxide Sore 10 ml MM QID #1416 ml 07/11/18 Mouth Cleanser] Allergies Allergy/AdvReac Type Severity Reaction Status Date / Time No Known Allergies Allergy Unverified 08/28/18 15:50 General Stated Complaint: Chest Pain JAISON: 2 Review of Systems Constitutional Reports as per HPI, Denies chills, Denies fever(s), Denies headache(s), Denies lethargy and Denies poor appetite Eyes Denies change in vision ENT Denies headache(s) Cardiovascular Reports as per HPI, Reports chest pain, Reports chest pain at rest (patient was sedentary at the time pain came on, has been sedentary since. Did not appear uncomfortable while ambulating into the department.), Denies pedal edema, Denies edema, Denies lightheadedness, Denies palpitations, Denies dyspnea and Denies dyspnea on exertion Respiratory Reports as per HPI, Reports cough, Denies dyspnea, Denies dyspnea on exertion and Denies wheezing Gastrointestinal Reports as per HPI, Denies abdominal pain, Denies diarrhea, Denies nausea and Denies vomiting Genitourinary Denies system reviewed and no additional complaints, except as docu (she denies change in urinary habits) Musculoskeletal Reports as per HPI and Denies back pain Integumentary/Breasts Reports as per HPI and Denies rash Neurologic Reports as per HPI and Denies headache(s) Endocrine Denies palpitations Allergic/Immunologic Denies wheezing PFSH Alcohol abuse Drug abuse (10/20/15) Hepatitis C infection Infected dental carries (10/20/15) Pancreatitis Tobacco use Family History Mother Substance abuse Alcohol abuse Essential hypertension Mental disorder Father Mental disorder Sister Mental disorder section (~2007) Cholecystectomy (01/17/15) Social History Smoking/Tobacco Use Status: Current every day alcohol intake: former substance use type: former substance user Date of last use: crack/cocaine jelani/buddhism: Protestant Exam Const General: cooperative, healthy appearing, comfortable, no acute distress and well developed Nutritional Appearance: average body habitus and well nourished Orientation: alert, awake and oriented x3 HENMT Head: normal to inspection Ears: hearing grossly normal bilaterally Mouth: moist mucous membranes Chest Chest: normal palpation of entire chest wall, no crepitus and tenderness (patient has diffuse discomfort with AP chest wall compression) Resp Effort & Inspection: normal respiratory effort, able to speak in complete sentences and no respiratory distress Auscultation: clear to auscultation bilaterally, no rales, no rhonchi and no wheezes Cardio Rate: regular rate Rhythm: regular rhythm Heart Sounds: S1 normal and S2 normal GI Inspection: normal to inspection, no edema and non-distended Palpation: soft, no hepatosplenomegaly, not firm, no guarding, not rigid and nontender Auscultation: normal bowel sounds Back/Spine/Pelvis Back: no CVA tenderness Thoracic/Lumbar Spine: thoracic and lumbar spine normal to inspection Skin General skin exam: no rashes or lesions noted Trauma: no lacerations or abrasions Neuro General: alert, awake and oriented x3 Cognition: normal cognition Speech: speech normal Gait: normal gait Extrem General: normal to inspection, normal capillary refill, no pedal edema, no calf tenderness and normal gait Psych Appearance: grossly normal and well kempt Mental Status: mental status grossly normal Speech and Movement: speech and movement normal Course Vital Signs Temperature 36.7 C 08/28/18 15:46 Pulse 82 08/28/18 15:46 Respiratory Rate 16 08/28/18 15:46 Blood Pressure 136/80 08/28/18 15:46 Pulse Oximetry 100 08/28/18 15:46 Temperature 36.7 C 08/28/18 15:46 Temperature Source Skin 08/28/18 15:46 Pulse 82 08/28/18 15:46 Respiratory Rate 16 08/28/18 15:46 Respiratory Effort Non-Labored 08/28/18 15:46 Blood Pressure 136/80 08/28/18 15:46 Blood Pressure Position Sitting 08/28/18 15:46 Pulse Oximetry 100 08/28/18 15:46 Oxygen Delivery Method Room Air 08/28/18 15:46 Oxygen Flow Rate 0 08/28/18 15:46 Pain Level 7 08/28/18 15:46
--- NOTE | 2018-08-28 15:55 | ED.GENADUL_ITS ---
Discharge Plan Disposition Patient Disposition: HOME Condition: Fair Discharge Details Chief Complaint: Chest Pain Clinical Impression: Chest pain Primary Care Provider: Unknown,Unknown ED Provider: Esther Pérez Home Meds and New Rx's Prescriptions: Continue methadone 10 MG/ML concentrate 90 mg PO DAILY Qty: 70 RF: 0 hydrogen peroxide [Peroxide Sore Mouth Cleanser] 1.5 % solution 10 ml MM QID Qty: 1416 RF: 0 ibuprofen 800 MG tablet 800 mg PO PRN PRNRF: 0 Discharge Instructions Instructions: Chest Pain (ED) Additional Instructions: Encourage hydration. Tylenol and/or Motrin as needed for discomfort. You may take 1,000mg of Tylenol every 6 hours as needed, 600mg of Ibuprofen every 6 hours needed for discomfort. At this time, you have decline second troponin. However, if your pain increased , you develop shortness of breath, fevers/chills or other new/worsening symptoms please seek care urgently once again. Please follow up with primary care this week for reevaluation. I have asked our pharmacist critical care to help facilitate follow up. Discharge Data Discharge Date/Time-TO BE ENTERED AT DEPARTURE: 08/28/18 17:26 Medical Decision Making Patient is a 27-year-old female presenting with chief complaint of chest pain. She reports that while sedentary, approximately 30 minutes prior to arrival, she began having central substernal chest pain that radiates up to the neck. She has no shortness of breath. States she has had a cough for the past month. Denies any fevers or chills. Denies any nausea or vomiting. Reports she has had chest pain similar to this historically. States the pain is 7 out of 10 at this time and is remained constant since onset. Reports the chest pain does increase with cough. Denies any recent trauma Has history of narcotic abuse, pancreatitis, UTI, back pain, scoliosis. She is status post hysterectomy On exam, patient appears nontoxic. Vital signs within normal limits. Lungs are clear on exam. Patient is noted to be in normal sinus rhythm, no murmur rub or gallops noted. Calves are soft and nontender. No pedal edema. Patient does not appear in any acute distress. Pain is easily reproducible with palpation of the chest. No palpable abnormality, no crepitus EKG reviewed by Dr. Blue. Patient is noted to have T wave abnormality, this is compared to previous EKG and remains unchanged. No acute ischemic findings. Patient is in normal sinus rhythm with a rate of 73. We will obtain laboratory evaluation, chest x-ray. Patient is endorsing discomfort. We will give her aspirin and Tylenol to help with pain. At this point, her pain does not sound cardiac in nature. No exertional component. This is easily reproducible on exam. This may be inflammatory based, possibly associated with cough. Also considered infectious source as she has had cough recently, lungs are clear. CXR and labs pending. Chest x-ray reviewed by radiologist. Advised no acute pulmonary disease. No acute changes compared to previous. No pleural effusion or pneumothorax. No consolidation. No Cardiomegaly. Labs reviewed, no acute abnormalities appreciated. No leukocytosis. D-dimer is within normal limits. Troponin is less than 0.02. Discussed these findings with the patient. Advised that this point there is no evidence of pneumonia, PE or other infectious source. Patient's age and history are also reassuring for this likely not being a cardiac source along with the patient's history of symptoms. EKG and initial tropinin are WNL. We did discuss again that her discomfort could be inflammatory based. I did advise , particularly as the pain began 30 minutes prior to arrival, we perform a repeat troponin. However, patient is refusing at this time as I do not have time for that. Patient was given aspirin and Tylenol to help with her discomfort which she reports that helped some. However, she is requesting further pain medication. I did offer the patient Toradol which she declined. Reports that never works. I discussed other nonnarcotic options with the patient and she declines. This point, vital signs remained stable, laboratory, EKG and imaging is reassuring. Patient I discussed the risks associated with missed cardiac events and she continues to decline repeat troponin. She is aware that she may return at any time for reevaluation and continued care. I did advise follow-up with primary care, I have asked her pharmacist critical care help facilitate follow-up in 1 week. We discussed new/worsening symptoms when to seek care urgently once again. All of her questions and concerns were addressed and she is in agreement with this plan. HPI General Mode of arrival: ambulatory . Date/Time Provider Initiated Documentation: 08/28/18 15:40 . Limitations to Documentation: no limitations . Information obtained by: patient . History of Present Illness 27 year old F presents to the emergency department with the chief complaint of chest pain, described as moderate, with intensity rated at 6. Quality is described as aching, and is localized to the chest. Patient neck. Patient started experiencing this minute(s) (30) and it has been constant. No relieving factors improve symptom(s), Movement worsens symptoms and Other factors that worsen symptoms (coughing) . Patient notes chest pain and cough; denies fever/chills, headaches, loss of appetite, nausea/vomiting, rash and shortness of breath. Patient did receive the following treatments prior to arrival, none Related Data Home Medications Medication Instructions Recorded Confirmed methadone 90 mg PO DAILY #70 mg 07/23/16 08/28/18 ibuprofen 800 mg PO PRN PRN 04/22/17 08/28/18 hydrogen peroxide [Peroxide Sore 10 ml MM QID #1416 ml 07/11/18 08/28/18 Mouth Cleanser] Previous Rx's Medication Instructions Recorded hydrogen peroxide [Peroxide Sore 10 ml MM QID #1416 ml 07/11/18 Mouth Cleanser] Allergies Allergy/AdvReac Type Severity Reaction Status Date / Time No Known Allergies Allergy Unverified 08/28/18 15:50 General Stated Complaint: Chest Pain JAISON: 2 Review of Systems Constitutional Reports as per HPI, Denies chills, Denies fever(s), Denies headache(s), Denies lethargy and Denies poor appetite Eyes Denies change in vision ENT Denies headache(s) Cardiovascular Reports as per HPI, Reports chest pain, Reports chest pain at rest (patient was sedentary at the time pain came on, has been sedentary since. Did not appear uncomfortable while ambulating into the department.), Denies pedal edema, Denies edema, Denies lightheadedness, Denies palpitations, Denies dyspnea and Denies dyspnea on exertion Respiratory Reports as per HPI, Reports cough, Denies dyspnea, Denies dyspnea on exertion and Denies wheezing Gastrointestinal Reports as per HPI, Denies abdominal pain, Denies diarrhea, Denies nausea and Denies vomiting Genitourinary Denies system reviewed and no additional complaints, except as docu (she denies change in urinary habits) Musculoskeletal Reports as per HPI and Denies back pain Integumentary/Breasts Reports as per HPI and Denies rash Neurologic Reports as per HPI and Denies headache(s) Endocrine Denies palpitations Allergic/Immunologic Denies wheezing PFSH Alcohol abuse Drug abuse (10/20/15) Hepatitis C infection Infected dental carries (10/20/15) Pancreatitis Tobacco use Family History Mother Substance abuse Alcohol abuse Essential hypertension Mental disorder Father Mental disorder Sister Mental disorder section (~2007) Cholecystectomy (01/17/15) Social History Smoking/Tobacco Use Status: Current every day alcohol intake: former substance use type: former substance user Date of last use: crack/cocaine jelani/nondenominational: Anabaptism Exam Const General: cooperative, healthy appearing, comfortable, no acute distress and well developed Nutritional Appearance: average body habitus and well nourished Orientation: alert, awake and oriented x3 HENMT Head: normal to inspection Ears: hearing grossly normal bilaterally Mouth: moist mucous membranes Chest Chest: normal palpation of entire chest wall, no crepitus and tenderness ( patient has diffuse discomfort with AP chest wall compression) Resp Effort & Inspection: normal respiratory effort, able to speak in complete sentences and no respiratory distress Auscultation: clear to auscultation bilaterally, no rales, no rhonchi and no wheezes Cardio Rate: regular rate Rhythm: regular rhythm Heart Sounds: S1 normal and S2 normal GI Inspection: normal to inspection, no edema and non-distended Palpation: soft, no hepatosplenomegaly, not firm, no guarding, not rigid and nontender Auscultation: normal bowel sounds Back/Spine/Pelvis Back: no CVA tenderness Thoracic/Lumbar Spine: thoracic and lumbar spine normal to inspection Skin General skin exam: no rashes or lesions noted Trauma: no lacerations or abrasions Neuro General: alert, awake and oriented x3 Cognition: normal cognition Speech: speech normal Gait: normal gait Extrem General: normal to inspection, normal capillary refill, no pedal edema, no calf tenderness and normal gait Psych Appearance: grossly normal and well kempt Mental Status: mental status grossly normal Speech and Movement: speech and movement normal Course Vital Signs Temperature 36.7 C 08/28/18 15:46 Pulse 82 08/28/18 15:46 Respiratory Rate 16 08/28/18 15:46 Blood Pressure 136/80 08/28/18 15:46 Pulse Oximetry 100 08/28/18 15:46 Temperature 36.7 C 08/28/18 15:46 Temperature Source Skin 08/28/18 15:46 Pulse 82 08/28/18 15:46 Respiratory Rate 16 08/28/18 15:46 Respiratory Effort Non-Labored 08/28/18 15:46 Blood Pressure 136/80 08/28/18 15:46 Blood Pressure Position Sitting 08/28/18 15:46 Pulse Oximetry 100 08/28/18 15:46 Oxygen Delivery Method Room Air 08/28/18 15:46 Oxygen Flow Rate 0 08/28/18 15:46 Pain Level 7 08/28/18 15:46
[2018-08-28] MEDS: Acetaminophen 500 MG TAB 1000 MG PO (16:08)
[2018-08-28] MEDS: Aspirin 81 MG CHEW 324 MG CH (16:08)
[2018-08-28 16:10] LABS: Abs Immature Grans 0.03 k/cumm (0.0-0.09); Absolute Basophil Count 0.01 k/cumm (0.0-0.2); Absolute Eosinophil Count 0.02 k/cumm (0.0-0.7); Absolute Lymphocyte Count 3.71 k/cumm (1.2-3.4); Absolute Monocyte Count 0.55 k/cumm (0.11-0.7); Absolute Neutrophil Count 4.19 k/cumm (1.2-6.7); Basophils % 0.1; Eosinophils % 0.2; HCT 42.8 % (36.0-46.0); HGB 14.8 g/dL (12.0-15.5); Immature Grans % 0.4; Lymphocytes % 43.6; Mean Corp. HGB Concentration 34.6 g/dL (32.0-36.0); Mean Corpuscular Hemoglobin 29.2 pg (27.0-33.0); Mean Corpuscular Volume 84.4 fL (80-95); Mean Platelet Volume 8.4 fL (8.0-11.0); Monocytes % 6.5; Neutrophils % 49.2; Platelet Count 333 x1000/uL (130-400); RBC 5.07 m/cumm (4.00-5.20); RBC Distribution Width 13.7 % (11.7-14.6); White Blood Cell Count 8.51 k/cumm (4.4-10.8)
[2018-08-28 16:21] LABS: ALT 67 U/L (12-78); AST 33 U/L (15-37); Albumin 3.6 g/dL (3.4-5.0); Alkaline Phosphatase 60 U/L (46-116); BUN 10 mg/dL (7-18); Bilirubin, Total 0.3 mg/dL (0.2-1.0); CREATININE 0.78 mg/dL (0.55-1.02); Calcium 8.6 mg/dL (8.5-10.1); Chloride 103 mmol/L (98-107); Glucose 77 mg/dL (70-100); Magnesium 1.8 mg/dL (1.8-2.4); Potassium 3.6 mmol/L (3.5-5.1); Prothrombin Time 9.8 sec (9.3-10.8); Sodium 139 mmol/L (136-145); Total Protein 8.1 g/dL (6.4-8.2)
[2018-08-28 16:26] LABS: Troponin I < 0.02 ng/mL (0.00-0.06)
--- NOTE | 2018-08-28 17:07 | DI.VRAD_ITS ---
EXAM: XR Chest, 2 Views EXAM DATE/TIME: 08/28/2018 4:17 PM CLINICAL HISTORY: 27 years old, female; Left-sided chest pain shooting up into neck, cough TECHNIQUE: XR of the chest, 2 views. COMPARISON: CR XR CHEST 2V PA LATERAL 06/11/2018 10:47 AM FINDINGS: Lungs: Unremarkable. No consolidation. Pleural space: Unremarkable. No pleural effusion. No pneumothorax. Heart/Mediastinum: Unremarkable. No cardiomegaly. Bones/joints: Unremarkable. IMPRESSION: No active pulmonary disease. No acute changes compared to 06/11/2018. Dictated and Authenticated by: Robert Berumen MD. Ordering:CARMEN LEES MD
[2018-08-28 17:12] LABS: D-Dimer 425 ng/mlFEU (<500)
== END 2018-08-28 17:26 | disposition home or self-care (01) ==
LOC: ER 17:29
PROVIDERS: Emergency Provider Physician Assistant
DX: R07.9 Chest pain, unspecified (principal); F17.210 Nicotine dependence, cigarettes, uncomplicated
CPT/HCPCS: 36415; 80053; 93005; 99285; 71046; 83735; 84484; 85025; 85379; 85610; 85730; 93010

== ENCOUNTER 2018-09-16 20:30 | Emergency (ER) | payer MEDICAID, SELFPAY ==
[2018-09-16 20:37] VITALS: BP 146/76; PULSE 86; RESP 16; TEMP 36.6; O2SAT 98
[2018-09-16] MEDS: Ketorolac 30 MG/ML VIAL IM (21:20)
[2018-09-16] MEDS: Penicillin V POTASSIUM 500 MG TAB PO (21:20)
[2018-09-16] MEDS: Benzocaine 20% 60 ML CAN TP (21:21)
[2018-09-16] MEDS: Bupivacaine 0.5% Pres-Free 30 ML VIAL IJ (21:21)
--- NOTE | 2018-09-16 21:26 | NUR.NOTE ---
patient medicated per [facility] order Nursing Note:
--- NOTE | 2018-09-16 22:05 | W.ED.GENAD ---
Discharge Plan Disposition Patient Disposition: HOME Condition: Improving Discharge Details Chief Complaint: DentalOral Clinical Impression: Abscess, dental Primary Care Provider: Unknown,Unknown ED Provider: Mohit Barahona Home Meds and New Rx's Prescriptions: New penicillin V potassium 500 mg tablet 500 mg PO QID 7 Days Qty: 28 RF: 0 Continued methadone 10 MG/ML concentrate 90 mg PO DAILY Qty: 70 RF: 0 ibuprofen 800 MG tablet 800 mg PO PRN PRNRF: 0 Discharge Instructions Instructions: Dental Abscess (ED) Additional Instructions: Return immediately to the emergency department for any new or significant worsening of symptoms such as fever chills, worsening swelling or severe pain, swelling of your tongue throat or any difficulty breathing. Otherwise it is recommended that you follow-up with a dentist in the next week for reevaluation. If unable to follow-up with a dentist please follow-up with your primary care to reassess your infection. Referrals: Primary Care Provider [Outside] Discharge Data Discharge Date/Time-TO BE ENTERED AT DEPARTURE: 09/16/18 22:21 Medical Decision Making Patient presenting to the emergency department chief complaint of dental pain. Patient states that pain started approximately within the last 24 hours and she has noted significant swelling to her right cheek. Patient denies any fever chills, swelling of her tongue lips or mouth, difficulty breathing. Physical exam shows a significant abscess adjacent to tooth #3 with fluctuance. Patient gave verbal consent to incision and drainage of the abscess. Please see note. Marcaine was injected into tissue for both pain relief and anesthetic for procedure along with patient receiving ketorolac. Patient placed up on penicillin and encouraged to return for new or worsening symptoms otherwise encouraged to follow-up with the dentist for reassessment and arrangement of definitive care. After discussion of diagnosis and plan of care patient has no further needs, questions, or concerns and states clear understanding to return to the emergency department for any worsening symptoms. HPI General Mode of arrival: ambulatory. Date/Time Provider Initiated Documentation: 09/16/18 20:40. Limitations to Documentation: no limitations. Information obtained by: patient and RN notes reviewed. History of Present Illness 27 year old F presents to the emergency department with the chief complaint of dental pain, described as moderate, Quality is described as sharp, and is localized to the face and right. Patient neck. Patient started experiencing this day(s) (1) and it has been constant. No relieving factors improve symptom(s), No exacerbating factors reported . Patient notes no other symptoms.. Patient did receive the following treatments prior to arrival, NSAID and Aspirin Related Data Home Medications Medication Instructions Recorded Confirmed methadone 90 mg PO DAILY #70 mg 07/23/16 09/16/18 ibuprofen 800 mg PO PRN PRN 04/22/17 09/16/18 penicillin V potassium 500 mg PO QID 7 Days #28 tab 09/16/18 Previous Rx's Medication Instructions Recorded penicillin V potassium 500 mg PO QID 7 Days #28 tab 09/16/18 Allergies Allergy/AdvReac Type Severity Reaction Status Date / Time No Known Allergies Allergy Unverified 09/16/18 20:42 General Stated Complaint: DentalOral JAISON: 3 Review of Systems Constitutional Denies chills and Denies fever(s) ENT Reports as per HPI, Denies change in voice, Reports dental pain, Denies dysphagia, Denies throat swelling and Denies tongue swelling Cardiovascular Denies chest pain and Denies dyspnea Respiratory Denies dyspnea Gastrointestinal Denies dysphagia Integumentary/Breasts Denies rash Allergic/Immunologic Denies throat swelling and Denies tongue swelling COUNTS INCLUDE 234 BEDS AT THE [facility] Medical History Alcohol abuse Drug abuse (10/20/15) Hepatitis C infection Infected dental carries (10/20/15) Pancreatitis Tobacco use Surgical History section (~2007) Cholecystectomy (01/17/15) Family History Mother Substance abuse Alcohol abuse Essential hypertension Mental disorder Father Mental disorder Sister Mental disorder Social History Smoking/Tobacco Use Status: Current every day alcohol intake: former substance use type: former substance user Date of last use: crack/cocaine jelani/lutheran: Gnosticism Exam Const General: cooperative Orientation: alert, awake and oriented x3 Limitations: mental status not altered HENIA Head: normal to inspection, normocephalic and atraumatic Ears: hearing grossly normal bilaterally, normal mastoids bilaterally and no periauricular adenopathy General nose exam: external nose normal Mouth: oropharynx normal, no drooling, no muffled voice, normal tongue and no trismus Teeth and gingiva: caries, poor dentition and other (erythema, fluctuation, induration gumline adjacent to tooth #3) Throat: posterior oropharynx normal, tonsils normal and uvula midline Eyes General: appearance normal, both eyes and all related structures Pupils: PERRL Neck Neck: normal visual inspection, full ROM, no meningeal signs, trachea midline, supple, no anterior neck swelling, lymphadenopathy (Mild right-sided anterior cervical) and no midline deformity Resp Effort & Inspection: normal respiratory effort and able to speak in complete sentences Course Vital Signs Temperature 36.6 C 09/16/18 20:37 Pulse 86 09/16/18 20:37 Respiratory Rate 16 09/16/18 20:37 Blood Pressure 146/76 H 09/16/18 20:37 Pulse Oximetry 98 09/16/18 20:37 Temperature 36.6 C 09/16/18 20:37 Temperature Source Temporal Artery Scan 09/16/18 20:37 Pulse 86 09/16/18 20:37 Respiratory Rate 16 09/16/18 20:37 Respiratory Effort Non-Labored 09/16/18 20:40 Blood Pressure 146/76 H 09/16/18 20:37 Blood Pressure Position Sitting 09/16/18 20:37 Pulse Oximetry 98 09/16/18 20:37 Oxygen Delivery Method Room Air 09/16/18 20:37 Oxygen Flow Rate 0 09/16/18 20:37 Pain Level 8 09/16/18 20:41 Procedures Abscess I/D Site: Other (Dental) Side (if applicable): Right Sedation/analgesia: None Local Anesthetic: Bupivicaine 0.5% Amount of anesthesia used (mL): 1 Technique: Needle Aspiration Amount of fluid expressed (mL): 0.5 Irrigation: No Packing used?: None Complications: Bleeding
--- NOTE | 2018-09-16 22:18 | NUR.NOTE ---
patient discharged home 2 penvk 500 mg tablets. Nursing Note:
[2018-09-16] MEDS: Penicillin V POTASSIUM 500 MG TAB 1000 MG PO (22:20)
== END 2018-09-16 22:21 | disposition home or self-care (01) ==
LOC: ER 22:37
PROVIDERS: Emergency Provider Nurse Practitioner Family
DX: R22.0 Localized swelling, mass and lump, head (principal); K04.7 Periapical abscess without sinus
CPT/HCPCS: 41800; 96372; J1885

== ENCOUNTER 2018-09-24 10:03 | Emergency (ER) | payer MEDICAID, SELFPAY ==
[2018-09-24] VITALS (21 sets, daily range): BP systolic 118–141; BP diastolic 76–84; PULSE 72–137; RESP 9–20; TEMP 36.6; O2SAT 94–100
--- NOTE | 2018-09-24 10:15 | DI.RAD_ITS ---
SYMPTOM/DIAGNOSIS: COUGH, PALPITATIONS PA AND LATERAL CHEST: Comparison is made with 08/28/18. The cardiac and mediastinal contours have a normal appearance. The lungs are well inflated and clear. No infiltrate or effusion is seen. There is no evidence of rib fracture or pneumothorax. IMPRESSION: Negative chest xray.
--- NOTE | 2018-09-24 10:16 | W.ED.GENAD ---
Discharge Plan Disposition Patient Disposition: HOME Condition: Improving Discharge Details Chief Complaint: Palpitatns Clinical Impression: Palpitations, Anxiety Primary Care Provider: None,None ED Provider: Pradeep Alicea Home Meds and New Rx's Prescriptions: Continued methadone 10 MG/ML concentrate 90 mg PO DAILY Qty: 70 RF: 0 acetaminophen [Tylenol Extra Strength] 500 mg Tablet 500 mg PO Q6H PRNRF: 0 ibuprofen [Ibuprofen IB] 200 mg Tablet 200 mg PO QID PRNRF: 0 Discontinued penicillin V potassium 500 mg Tablet 500 mg PO QID RF: 0 Discharge Instructions Instructions: Palpitations (ED), Anxiety (ED) Additional Instructions: Please follow through with your plan to establish primary care again. If you are unable to, please call back to the emergency department at [phone] and asked to speak to our case management. Home to rest today. Please note that you received a small amount of Ativan during her emergency department visit. Return if you develop chest pain, difficulty breathing, or any other acute concerns Medical Decision Making 27-year-old female states she had the fairly abrupt onset of palpitations with sensation of a skipped beat earlier this morning. He felt slightly nauseated anxious with this. She states she has had a recent cough with production of sputum. She arrives to emerge department with unremarkable vital signs and normal oxygenation. Differential diagnosis includes anxious reaction, benign palpitations such as PVC, unlikely to be ACS or thyroid instability. Patient placed in a log skidder, IV access established, given a fluid bolus, referred for laboratory testing, EKG, chest x-ray. While in the ED the patient had sinus tachycardia to 125 bpm. This did not reveal any acute ST segment changes and was not associated with chest pain or shortness of breath, it was associated with anxiety. Patient received fluid bolus and magnesium in the ED with a small aliquot of anxiolytic. She felt improved and had no further runs of rapid heart rate. Laboratories are reassuring. Do not feel that there is evidence of pulmonary embolism. Patient requesting discharge which I feel is appropriate. She understands return precautions. She is to follow-up and establish care with [facility] per her preference. Lab Data Lab results reviewed: Yes I reviewed the patient's lab results. Laboratory Results - last 24 hr 09/24/18 09/24/18 09/24/18 10:20 10:20 10:20 WBC 6.69 RBC 5.14 Hgb 14.9 Hct 43.3 MCV 84.2 MCH 29.0 MCHC 34.4 RDW 13.2 Plt Count 301 MPV 8.3 Immature Gran % 0.1 Neutrophils % 56.2 Lymphocytes % 35.7 Monocytes % 6.9 Eosinophils % 0.7 Basophils % 0.4 Absolute Neutrophils 3.75 Absolute Lymphocytes 2.39 Absolute Monocytes 0.46 Absolute Eosinophils 0.05 Absolute Basophils 0.03 Sodium 137 Potassium 3.9 Chloride 101 Carbon Dioxide 27.9 Anion Gap 8.1 BUN 15 Creatinine 0.89 Estimated GFR/1.73 m2 >= 60.00 Glucose 119 H Calcium 9.2 Magnesium 1.7 L Total Bilirubin 0.4 AST 61 H ALT 111 H Alkaline Phosphatase 69 Troponin I < 0.02 Total Protein 8.5 H Albumin 3.7 TSH 1.26 ECG Data Attestation: I personally reviewed and interpreted this ECG (s) as follows: Interpretation: Normal sinus rhythm, rate of 90 T, QRS is narrow, there is no ST segment elevation, normal intervals HPI General Mode of arrival: ambulatory. Date/Time Provider Initiated Documentation: 09/24/18 10:04. Limitations to Documentation: no limitations. Information obtained by: patient. History of Present Illness 27 year old F presents to the emergency department with the chief complaint of Palpitations, anxiety, recent cough, described as moderate, Quality is described as other (Skipping beats), and is localized to the chest. Patient reports no radiation. Patient started experiencing this minute(s) and it has been now resolved. No relieving factors improve symptom(s), No exacerbating factors reported . Patient notes cough, loss of appetite and other (Anxiety and stress). Patient did receive the following treatments prior to arrival, none Related Data Home Medications Medication Instructions Recorded Confirmed methadone 90 mg PO DAILY #70 mg 07/23/16 09/24/18 acetaminophen [Tylenol Extra 500 mg PO Q6H PRN 09/24/18 09/24/18 Strength] ibuprofen [Ibuprofen IB] 200 mg PO QID PRN 09/24/18 09/24/18 Allergies Allergy/AdvReac Type Severity Reaction Status Date / Time No Known Allergies Allergy Unverified 09/24/18 10:17 General Stated Complaint: Palpitatns JAISON: 2 Review of Systems Review of Systems 8 systems reviewed and otherwise - [facility] Medical History Alcohol abuse Drug abuse (10/20/15) Hepatitis C infection Infected dental carries (10/20/15) Pancreatitis Tobacco use Surgical History section (~2007) Cholecystectomy (01/17/15) Family History Mother Substance abuse Alcohol abuse Essential hypertension Mental disorder Father Mental disorder Sister Mental disorder Social History Smoking/Tobacco Use Status: Current every day alcohol intake: former substance use type: former substance user Date of last use: crack/cocaine jelani/voodoo: Faith Exam Narrative Exam Narrative: GEN: awake, alert, oriented 3. Pleasant, well groomed, interactive. HEAD: Normocephalic, atraumatic ENT: Mucous membranes moist, oropharynx unremarkable, External ear exam unremarkable EYES: PERRL, EOMI NECK: Full ROM, no PATI, no menigismus CHEST/RESP: Nontender, clear to auscultation bilateral, no wheeze/rhonchi/rales CARDIOVASCULAR: RRR, no murmur, rub hanna. 2+ Rad pulse bilateral ABDOMEN: Soft, nontender, no mass. +Bowel sounds EXT: Full ROM, no edema, no rash Neuro: Grossly normal neurologic exam, conversant, interactive. Psych: Speech fluent, thoughts congruent, affect normal Course Vital Signs Temperature 36.6 C 09/24/18 10:08 Pulse 90 09/24/18 10:08 Respiratory Rate 15 09/24/18 10:08 Blood Pressure 141/84 H 09/24/18 10:08 Pulse Oximetry 96 09/24/18 10:08 Temperature 36.6 C 09/24/18 10:08 Temperature Source Temporal Artery Scan 09/24/18 10:08 Pulse 90 09/24/18 10:08 Respiratory Rate 15 09/24/18 10:08 Respiratory Effort Non-Labored 09/24/18 10:15 Blood Pressure 141/84 H 09/24/18 10:08 Blood Pressure Position Supine 09/24/18 10:08 Pulse Oximetry 96 09/24/18 10:08 Oxygen Delivery Method Room Air 09/24/18 10:08 Oxygen Flow Rate 0 09/24/18 10:08 Pain Level 5 09/24/18 10:08
--- NOTE | 2018-09-24 10:19 | ED.GENADUL_ITS ---
Discharge Plan Disposition Patient Disposition: HOME Condition: Improving Discharge Details Chief Complaint: Palpitatns Clinical Impression: Palpitations, Anxiety Primary Care Provider: None,None ED Provider: Pradeep Alicea Home Meds and New Rx's Prescriptions: Continued methadone 10 MG/ML concentrate 90 mg PO DAILY Qty: 70 RF: 0 acetaminophen [Tylenol Extra Strength] 500 mg Tablet 500 mg PO Q6H PRNRF: 0 ibuprofen [Ibuprofen IB] 200 mg Tablet 200 mg PO QID PRNRF: 0 Discontinued penicillin V potassium 500 mg Tablet 500 mg PO QID RF: 0 Discharge Instructions Instructions: Palpitations (ED), Anxiety (ED) Additional Instructions: Please follow through with your plan to establish primary care again. If you are unable to, please call back to the emergency department at [phone] and asked to speak to our case management. Home to rest today. Please note that you received a small amount of Ativan during her emergency department visit. Return if you develop chest pain, difficulty breathing, or any other acute concerns Medical Decision Making 27-year-old female states she had the fairly abrupt onset of palpitations with sensation of a skipped beat earlier this morning. He felt slightly nauseated anxious with this. She states she has had a recent cough with production of sputum. She arrives to emerge department with unremarkable vital signs and normal oxygenation. Differential diagnosis includes anxious reaction, benign palpitations such as PVC, unlikely to be ACS or thyroid instability. Patient placed in a environmental monitoring technician, IV access established, given a fluid bolus, referred for laboratory testing, EKG, chest x-ray. While in the ED the patient had sinus tachycardia to 125 bpm. This did not reveal any acute ST segment changes and was not associated with chest pain or shortness of breath, it was associated with anxiety. Patient received fluid bolus and magnesium in the ED with a small aliquot of anxiolytic. She felt improved and had no further runs of rapid heart rate. Laboratories are reassuring. Do not feel that there is evidence of pulmonary embolism. Patient requesting discharge which I feel is appropriate. She understands return precautions. She is to follow-up and establish care with [facility] per her preference. Lab Data Lab results reviewed: Yes I reviewed the patient's lab results. Laboratory Results - last 24 hr 09/24/18 09/24/18 09/24/18 10:20 10:20 10:20 WBC 6.69 RBC 5.14 Hgb 14.9 Hct 43.3 MCV 84.2 MCH 29.0 MCHC 34.4 RDW 13.2 Plt Count 301 MPV 8.3 Immature Gran % 0.1 Neutrophils % 56.2 Lymphocytes % 35.7 Monocytes % 6.9 Eosinophils % 0.7 Basophils % 0.4 Absolute Neutrophils 3.75 Absolute Lymphocytes 2.39 Absolute Monocytes 0.46 Absolute Eosinophils 0.05 Absolute Basophils 0.03 Sodium 137 Potassium 3.9 Chloride 101 Carbon Dioxide 27.9 Anion Gap 8.1 BUN 15 Creatinine 0.89 Estimated GFR/1.73 m2 >= 60.00 Glucose 119 H Calcium 9.2 Magnesium 1.7 L Total Bilirubin 0.4 AST 61 H ALT 111 H Alkaline Phosphatase 69 Troponin I < 0.02 Total Protein 8.5 H Albumin 3.7 TSH 1.26 ECG Data Attestation: I personally reviewed and interpreted this ECG (s) as follows: Interpretation: Normal sinus rhythm, rate of 90 T, QRS is narrow, there is no ST segment elevation, normal intervals HPI General Mode of arrival: ambulatory . Date/Time Provider Initiated Documentation: 09/24/18 10:04 . Limitations to Documentation: no limitations . Information obtained by: patient . History of Present Illness 27 year old F presents to the emergency department with the chief complaint of Palpitations, anxiety, recent cough, described as moderate, Quality is described as other (Skipping beats), and is localized to the chest. Patient reports no radiation. Patient started experiencing this minute(s) and it has been now resolved. No relieving factors improve symptom(s), No exacerbating factors reported . Patient notes cough, loss of appetite and other (Anxiety and stress). Patient did receive the following treatments prior to arrival, none Related Data Home Medications Medication Instructions Recorded Confirmed methadone 90 mg PO DAILY #70 mg 07/23/16 09/24/18 acetaminophen [Tylenol Extra 500 mg PO Q6H PRN 09/24/18 09/24/18 Strength] ibuprofen [Ibuprofen IB] 200 mg PO QID PRN 09/24/18 09/24/18 Allergies Allergy/AdvReac Type Severity Reaction Status Date / Time No Known Allergies Allergy Unverified 09/24/18 10:17 General Stated Complaint: Palpitatns JAISON: 2 Review of Systems Review of Systems 8 systems reviewed and otherwise - [facility] Medical History Alcohol abuse Drug abuse (10/20/15) Hepatitis C infection Infected dental carries (10/20/15) Pancreatitis Tobacco use Surgical History section (~2007) Cholecystectomy (01/17/15) Family History Mother Substance abuse Alcohol abuse Essential hypertension Mental disorder Father Mental disorder Sister Mental disorder Social History Smoking/Tobacco Use Status: Current every day alcohol intake: former substance use type: former substance user Date of last use: crack/cocaine jelani/christianity: Anabaptism Exam Narrative Exam Narrative: GEN: awake, alert, oriented 3. Pleasant, well groomed, interactive. HEAD: Normocephalic, atraumatic ENT: Mucous membranes moist, oropharynx unremarkable, External ear exam unremarkable EYES: PERRL, EOMI NECK: Full ROM, no PATI, no menigismus CHEST/RESP: Nontender, clear to auscultation bilateral, no wheeze/rhonchi/rales CARDIOVASCULAR: RRR, no murmur, rub hanna. 2+ Rad pulse bilateral ABDOMEN: Soft, nontender, no mass. +Bowel sounds EXT: Full ROM, no edema, no rash Neuro: Grossly normal neurologic exam, conversant, interactive. Psych: Speech fluent, thoughts congruent, affect normal Course Vital Signs Temperature 36.6 C 09/24/18 10:08 Pulse 90 09/24/18 10:08 Respiratory Rate 15 09/24/18 10:08 Blood Pressure 141/84 H 09/24/18 10:08 Pulse Oximetry 96 09/24/18 10:08 Temperature 36.6 C 09/24/18 10:08 Temperature Source Temporal Artery Scan 09/24/18 10:08 Pulse 90 09/24/18 10:08 Respiratory Rate 15 09/24/18 10:08 Respiratory Effort Non-Labored 09/24/18 10:15 Blood Pressure 141/84 H 09/24/18 10:08 Blood Pressure Position Supine 09/24/18 10:08 Pulse Oximetry 96 09/24/18 10:08 Oxygen Delivery Method Room Air 09/24/18 10:08 Oxygen Flow Rate 0 09/24/18 10:08 Pain Level 5 09/24/18 10:08
[2018-09-24] MEDS: Normal Saline 1,000 ML 1000 ML IV (10:26)
[2018-09-24 10:29] LABS: Abs Immature Grans 0.01 k/cumm (0.0-0.09); Absolute Basophil Count 0.03 k/cumm (0.0-0.2); Absolute Eosinophil Count 0.05 k/cumm (0.0-0.7); Absolute Lymphocyte Count 2.39 k/cumm (1.2-3.4); Absolute Monocyte Count 0.46 k/cumm (0.11-0.7); Absolute Neutrophil Count 3.75 k/cumm (1.2-6.7); Basophils % 0.4; Eosinophils % 0.7; HCT 43.3 % (36.0-46.0); HGB 14.9 g/dL (12.0-15.5); Immature Grans % 0.1; Lymphocytes % 35.7; Mean Corp. HGB Concentration 34.4 g/dL (32.0-36.0); Mean Corpuscular Volume 84.2 fL (80-95); Mean Platelet Volume 8.3 fL (8.0-11.0); Monocytes % 6.9; Neutrophils % 56.2; Platelet Count 301 x1000/uL (130-400); RBC 5.14 m/cumm (4.00-5.20); RBC Distribution Width 13.2 % (11.7-14.6); White Blood Cell Count 6.69 k/cumm (4.4-10.8)
[2018-09-24 10:44] LABS: ALT 111 U/L (12-78); AST 61 U/L (15-37); Albumin 3.7 g/dL (3.4-5.0); Alkaline Phosphatase 69 U/L (46-116); Anion Gap 8.1 mmol/L (3-11); BUN 15 mg/dL (7-18); Bilirubin, Total 0.4 mg/dL (0.2-1.0); CO2 27.9 mmol/L (21.0-32.0); CREATININE 0.89 mg/dL (0.55-1.02); Calcium 9.2 mg/dL (8.5-10.1); Chloride 101 mmol/L (98-107); Glucose 119 mg/dL (70-100); Magnesium 1.7 mg/dL (1.8-2.4); Potassium 3.9 mmol/L (3.5-5.1); Sodium 137 mmol/L (136-145); Total Protein 8.5 g/dL (6.4-8.2)
[2018-09-24 10:45] LABS: Troponin I < 0.02 ng/mL (0.00-0.06)
--- NOTE | 2018-09-24 11:27 | DI.VRAD_ITS ---
EXAM: XR Chest, 2 Views EXAM DATE/TIME: 09/24/2018 10:16 AM CLINICAL HISTORY: 27 years old, female; Signs and symptoms; Cough and other: Palpitations TECHNIQUE: XR of the chest, 2 views. COMPARISON: CR XR CHEST 2V PA LATERAL 08/28/2018 4:08 PM FINDINGS: Lungs: Mildly hyperaerated lungs consistent with deep inspiratory effort vs mild reactive airway disease. Pleural space: Unremarkable. No pleural effusion. No pneumothorax. Heart/Mediastinum: Unremarkable. No cardiomegaly. Bones/joints: Unremarkable. IMPRESSION: Mildly hyperaerated lungs consistent with deep inspiratory effort vs mild reactive airway disease. Dictated and Authenticated by: Lex Wright MD. Ordering:ALEXEY Fernández MD
[2018-09-24] MEDS: MAGNESIUM SULFATE 2 GM/50 ML BAG IVPB (11:35)
[2018-09-24] MEDS: LORazepam 2 MG/ML VIAL 0.5 MG IVP (11:35)
[2018-09-24 11:53] LABS: TSH 1.26 uIU/mL (0.358-3.74)
== END 2018-09-24 13:07 | disposition home or self-care (01) ==
PROVIDERS: Emergency Provider Emergency Medicine
DX: R00.2 Palpitations (principal); F41.9 Anxiety disorder, unspecified
CPT/HCPCS: 36415; 80053; 93005; 96361; 96365; 96366; 96375; 99285; 71046; 83735; 84443; 84484; 85025; 93010; 99284; J2060

== ENCOUNTER 2018-09-26 13:16 | Emergency (ER) | payer MEDICAID, SELFPAY ==
[2018-09-26 13:17] VITALS: BP 127/80; PULSE 83; RESP 20; TEMP 36.8; O2SAT 96
--- NOTE | 2018-09-26 15:32 | ED.GENADUL_ITS ---
Discharge Plan Disposition Patient Disposition: HOME Condition: Good Discharge Details Chief Complaint: Anxiety Clinical Impression: Anxiety Reason For Visit: SIGIFREDO Primary Care Provider: None,None ED Provider: Doug Sanchez Home Meds and New Rx's Prescriptions: New lorazepam [Ativan] 0.5 mg tablet 0.5 mg PO ONCE Qty: 1 RF: 0 No Action methadone 10 MG/ML concentrate 90 mg PO DAILY Qty: 70 RF: 0 acetaminophen [Tylenol Extra Strength] 500 mg Tablet 500 mg PO Q6H PRNRF: 0 ibuprofen [Ibuprofen IB] 200 mg Tablet 200 mg PO QID PRNRF: 0 Discharge Instructions Instructions: Anxiety (ED) Additional Instructions: Please use the breathing techniques and de-escalation techniques that we have described to you. Take the medication only as absolutely indicated. Please follow-up promptly with your primary care provider. If you notice any worsening of your symptoms, or any new symptoms such as vomiting, diarrhea, fever, chills, shortness of breath, chest pain, numbness, weakness, or fainting , please return immediately to the emergency department for reevaluation. Please follow up with your primary care provider as soon as possible for reassessment and reevaluation. As always, it was a pleasure participating in your medical care today. Medical Decision Making This is a 27-year-old female with a past medical history of anxiety who presents today for palpitations and an anxiety attack. The patient states that she has been under significant amount of stress as of late, she states that she had an anxiety attack earlier today, her symptoms resolved by the time she arrived. She has been here a few times within the last 2 weeks before these episodes. Each time has resulted in a fairly benign workup. However on her last visit she did get Ativan from the provider that she was seen by and states that that worked best. She is requesting more at this time. At the time of my exam the patient was asymptomatic and she states that her symptoms had resolved without intervention. Heart rate was normal, EKG was benign. She did have some reproducible central chest pain over her sternum, no signs of trauma. I reviewed with the patient the patient's previous workup, and the results of it. I also offered for repeat imaging and repeat laboratory testing including for potential d-dimer although her likelihood is extremely low, and she is low risk Wells score and PERC negative. The patient did not want any additional laboratory or imaging workup at this time. With the clinical history of multiple stressors, multiple recent negative workups, and my current clinical exam that is inconsistent with an acute cardiac etiology, with reassuring vital signs and no signs of hemodynamic compromise, I do feel her signs and symptoms may be related to stress. She does have follow-up with a primary care provider scheduled within the next 2 weeks per the patient. With her refusal for any additional workup, and a reassuring exam, I do feel that she can be discharged home with close follow-up. We will give one small dose of Ativan for home use as needed as needed for anxiety. I have extensively reviewed the treatment plan and discharge instructions with the patient and their family. I have addressed all patient concerns at this time. The patient and family was made aware of what symptoms to monitor for that would warrant a return to the emergency department. Discussed the plan with the patient and family, they demonstrate verbal understanding and agreement with our assessment and plan at this time. EKG 15: 21 Rate 75, sinus rhythm, intervals normal, inverted T wave in V1 V2 and V3, no significant Q waves. No epsilon wave or delta wave. No ST elevations or depressions. Review of patient's multiple previous EKGs demonstrate intermittent inverted T waves in V1 through V4 on previous EKGs from 04/17, 08/28, and 09/24. Current EKG is consistent with prior EKGs. HPI General Date/Time Provider Initiated Documentation: 09/26/18 14:49 . HPI Narrative: This is a 27-year-old female with a past medical history of anxiety, Suboxone use, narcotic use in the past, and a past surgical history of a hysterectomy. She presents today for evaluation of anxiety and palpitations. Patient states that today she was at home and has been dealing with multiple various stressors in life. The stresses have been increasingly mounting, including watching her 4 children. She laid down for nap and felt overwhelmed by the stressors. She then developed palpitations, felt lightheaded, and slightly dizzy. She felt like the world was closing in on her. She called EMS, came for evaluation of her symptoms. She does admit to very minimal chest pain, and states that it is in her central sternal area. He comes and goes, and it is not exertional. No radiation to the neck or arms. Denies PE risk factors such as recent long car rides, immobilization, recent surgery, prior history of DVT or PE, family history of PE or DVT, morbid obesity, exogenous estrogen and smoking, hemoptysis, history of cancer. Patient has been here multiple times recently for this anxiety like scenario. She was tachycardic on those other visits, although she has no tachycardia now. She was last seen within the last 2 days, where she had a negative chest x-ray, negative laboratory workup, normal troponin, and benign electrolytes. She was discharged at that time. She does have follow-up with her primary care provider within the next 1-2 weeks per the patient. She denies any IV or illicit drug use at this time, she denies any cocaine or amphetamine use. Related Data Home Medications Medication Instructions Recorded Confirmed methadone 90 mg PO DAILY #70 mg 07/23/16 09/26/18 acetaminophen [Tylenol Extra 500 mg PO Q6H PRN 09/24/18 09/26/18 Strength] ibuprofen [Ibuprofen IB] 200 mg PO QID PRN 09/24/18 09/26/18 lorazepam [Ativan] 0.5 mg PO ONCE #1 tab 09/26/18 Previous Rx's Medication Instructions Recorded lorazepam [Ativan] 0.5 mg PO ONCE #1 tab 09/26/18 Allergies Allergy/AdvReac Type Severity Reaction Status Date / Time No Known Allergies Allergy Unverified 09/26/18 13:20 General Stated Complaint: Anxiety JAISON: 3 Review of Systems Review of Systems All systems reviewed & are unremarkable except as noted in HPI and below PFSH Social History Smoking/Tobacco Use Status: Current every day alcohol intake: former substance use type: former substance user Date of last use: crack/cocaine jelani/baptist: Uats[employer] Exam Narrative Exam Narrative: 1.Const: Well-nourished, Well-developed, appearing stated age 2.Eyes: PERRL, no conjunctival injection, and symmetrical lids. 3.ENT: Atraumatic external nose and ears. Moist MM. Neck: Symmetric, trachea midline, No thyromegaly. 4.CVS: +S1/S2, No murmurs or gallops. Peripheral pulses 2+ and equal in all extremities. Brisk capillary refill in all extremities. Reproducible chest pain over the superior sternum. No deformity. No paradoxical movements, 5.RESP: Unlabored respiratory effort. Clear to auscultation bilaterally. No wheezes rales or rhonchi 6.GI: Soft, Nontender/Nondistended, No hepatosplenomegaly. No guarding or rebound. 7.MSK: Normocephalic/Atraumatic, Extremities w/o deformity or ttp No cyanosis or clubbing, Normal movement of all extremities. No calf tenderness. 8.Skin: Warm, Dry. No rashes or lesions. 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 Sensation grossly intact, no focal neurologi c deficits. 10.Psych: (AAO) x3. Appropriate mood and affect Course Vital Signs Temperature 36.8 C 09/26/18 13:17 Pulse 83 09/26/18 13:17 Respiratory Rate 20 09/26/18 13:17 Blood Pressure 127/80 09/26/18 13:17 Pulse Oximetry 96 09/26/18 13:17 Temperature 36.8 C 09/26/18 13:17 Temperature Source Temporal Artery Scan 09/26/18 13:17 Pulse 83 09/26/18 13:17 Respiratory Rate 20 09/26/18 13:17 Respiratory Effort Non-Labored 09/26/18 13:17 Blood Pressure 127/80 09/26/18 13:17 Blood Pressure Position Sitting 09/26/18 13:17 Pulse Oximetry 96 09/26/18 13:17 Oxygen Delivery Method Room Air 09/26/18 13:17 Oxygen Flow Rate 0 09/26/18 13:17
[2018-09-26 15:39] VITALS: BP 127/80; PULSE 83; RESP 18; RESP 20; TEMP 36.8; O2SAT 96
== END 2018-09-26 15:40 | disposition home or self-care (01) ==
PROVIDERS: Emergency Provider Student in an Organized Health Care Education/Training Program
DX: F41.9 Anxiety disorder, unspecified (principal); R00.2 Palpitations; F17.210 Nicotine dependence, cigarettes, uncomplicated; Z53.29 Procedure and treatment not carried out because of patient's decision for other reasons
CPT/HCPCS: 93005; 99283; 93010

== ENCOUNTER 2018-09-28 09:48 | Emergency (ER) | payer MEDICAID, SELFPAY ==
[2018-09-28 09:54] VITALS: BP 139/74; PULSE 81; RESP 18; TEMP 36.3; O2SAT 97
--- NOTE | 2018-09-28 10:09 | W.ED.GENAD ---
Discharge Plan Disposition Patient Disposition: HOME Condition: Improving Discharge Details Chief Complaint: Chest Pain Clinical Impression: Gastritis Primary Care Provider: None,None ED Provider: Pradeep Alicea Home Meds and New Rx's Prescriptions: New sucralfate [Carafate] 100 mg/mL suspension 10 ml PO QID Qty: 420 RF: 2 Continued methadone 10 MG/ML concentrate 90 mg PO DAILY Qty: 70 RF: 0 acetaminophen [Tylenol Extra Strength] 500 mg Tablet 500 mg PO Q6H PRNRF: 0 No Action lorazepam [Ativan] 0.5 mg tablet 0.5 mg PO ONCE Qty: 1 RF: 0 ibuprofen [Ibuprofen IB] 200 mg Tablet 200 mg PO QID PRNRF: 0 Discharge Instructions Instructions: Gastritis (ED) Additional Instructions: Please begin Carafate 4 times daily. With meals and before morning medication. Please follow-up with [facility] and [facility] human services as discussed with our care management team. Medical Decision Making 27-year-old female states she has been having episodes near daily after taking her methadone dose in the morning of epigastric discomfort that is crampy and sometimes radiates to her abdomen. She is anxious about this and has had some palpitations. They resolved. She was seen in emergency department twice earlier on the and 26 September with workups that were unrevealing. She recently had a course of antibiotics. The discomfort seems somewhat worse since that time. She is afebrile, well-appearing, her exam is reassuring. Differential diagnosis includes gastritis, esophagitis. She has had a cholecystectomy and therefore do not feel that biliary pathology is likely. We will place her on a course of Carafate. Our care management team has seen her in the ER and is assisting her in establishing outpatient mental health services as well as primary care at [facility] ECG Data Attestation: I personally reviewed and interpreted this ECG (s) as follows: Interpretation: Normal sinus rhythm with a rate of 93, the QRS is narrow, there is no ST segment elevation, intervals unremarkable. HPI General Mode of arrival: ambulatory. Date/Time Provider Initiated Documentation: 09/28/18 09:52. Limitations to Documentation: no limitations. Information obtained by: patient. History of Present Illness 27 year old F presents to the emergency department with the chief complaint of Epigastric discomfort in the morning after taking methadone dose, described as moderate, Quality is described as dull, and is localized to the abdomen. Patient started experiencing this hour(s) and it has been constant. No relieving factors improve symptom(s), No exacerbating factors reported . Patient notes loss of appetite and nausea/vomiting; denies chest pain. Patient did receive the following treatments prior to arrival, none Related Data Home Medications Medication Instructions Recorded Confirmed methadone 90 mg PO DAILY #70 mg 07/23/16 09/26/18 acetaminophen [Tylenol Extra 500 mg PO Q6H PRN 09/24/18 09/26/18 Strength] ibuprofen [Ibuprofen IB] 200 mg PO QID PRN 09/24/18 09/26/18 lorazepam [Ativan] 0.5 mg PO ONCE #1 tab 09/26/18 sucralfate [Carafate] 10 ml PO QID #420 ml 09/28/18 Previous Rx's Medication Instructions Recorded lorazepam [Ativan] 0.5 mg PO ONCE #1 tab 09/26/18 sucralfate [Carafate] 10 ml PO QID #420 ml 09/28/18 Allergies Allergy/AdvReac Type Severity Reaction Status Date / Time No Known Allergies Allergy Unverified 09/26/18 13:20 General Stated Complaint: Chest Pain JAISON: 2 Review of Systems Review of Systems 6 systems reviewed and otherwise negative. No chest pain, shortness of breath, no syncopal episodes, no change to bowel or bladder habits. [facility] Social History Smoking/Tobacco Use Status: Current every day alcohol intake: former substance use type: former substance user Date of last use: crack/cocaine jelani/restorationist: Scientology Exam Narrative Exam Narrative: GEN: awake, alert, oriented 3. Pleasant, well groomed, interactive. HEAD: Normocephalic, atraumatic ENT: Mucous membranes moist, oropharynx unremarkable, External ear exam unremarkable EYES: PERRL, EOMI NECK: Full ROM, no PATI, no menigismus CHEST/RESP: Nontender, clear to auscultation bilateral, no wheeze/rhonchi/rales CARDIOVASCULAR: RRR, no murmur, rub hanna. 2+ Rad pulse bilateral ABDOMEN: Soft, minimal tenderness in the epigastrium, no rebound or guarding, no mass. +Bowel sounds EXT: Full ROM, no edema, no rash Neuro: Grossly normal neurologic exam, conversant, interactive. Psych: Speech fluent, thoughts congruent, affect normal Course Vital Signs Temperature 36.3 C L 09/28/18 09:54 Pulse 81 09/28/18 09:54 Respiratory Rate 18 09/28/18 09:54 Blood Pressure 139/74 09/28/18 09:54 Pulse Oximetry 97 09/28/18 09:54 Temperature 36.3 C L 09/28/18 09:54 Temperature Source Temporal Artery Scan 09/28/18 09:54 Pulse 81 09/28/18 09:54 Respiratory Rate 18 09/28/18 09:54 Respiratory Effort Non-Labored 09/28/18 09:54 Blood Pressure 139/74 09/28/18 09:54 Pulse Oximetry 97 09/28/18 09:54 Oxygen Delivery Method Room Air 09/28/18 09:54 Oxygen Flow Rate 0 09/28/18 09:54
--- NOTE | 2018-09-28 10:13 | ED.GENADUL_ITS ---
Discharge Plan Disposition Patient Disposition: HOME Condition: Improving Discharge Details Chief Complaint: Chest Pain Clinical Impression: Gastritis Primary Care Provider: None,None ED Provider: Pradeep Alicea Home Meds and New Rx's Prescriptions: New sucralfate [Carafate] 100 mg/mL suspension 10 ml PO QID Qty: 420 RF: 2 Continued methadone 10 MG/ML concentrate 90 mg PO DAILY Qty: 70 RF: 0 acetaminophen [Tylenol Extra Strength] 500 mg Tablet 500 mg PO Q6H PRNRF: 0 No Action lorazepam [Ativan] 0.5 mg tablet 0.5 mg PO ONCE Qty: 1 RF: 0 ibuprofen [Ibuprofen IB] 200 mg Tablet 200 mg PO QID PRNRF: 0 Discharge Instructions Instructions: Gastritis (ED) Additional Instructions: Please begin Carafate 4 times daily. With meals and before morning medication. Please follow-up with [facility] and [facility] human services as discussed with our care management team. Medical Decision Making 27-year-old female states she has been having episodes near daily after taking her methadone dose in the morning of epigastric discomfort that is crampy and sometimes radiates to her abdomen. She is anxious about this and has had some palpitations. They resolved. She was seen in emergency department twice earlier on the and 26 September with workups that were unrevealing. She recently had a course of antibiotics. The discomfort seems somewhat worse since that time. She is afebrile, well-appearing, her exam is reassuring. Differential diagnosis includes gastritis, esophagitis. She has had a cholecystectomy and therefore do not feel that biliary pathology is likely. We will place her on a course of Carafate. Our care management team has seen her in the ER and is assisting her in establishing outpatient mental health services as well as primary care at [facility] ECG Data Attestation: I personally reviewed and interpreted this ECG (s) as follows: Interpretation: Normal sinus rhythm with a rate of 93, the QRS is narrow, there is no ST segment elevation, intervals unremarkable. HPI General Mode of arrival: ambulatory . Date/Time Provider Initiated Documentation: 09/28/18 09:52 . Limitations to Documentation: no limitations . Information obtained by: patient . History of Present Illness 27 year old F presents to the emergency department with the chief complaint of Epigastric discomfort in the morning after taking methadone dose, described as moderate, Quality is described as dull, and is localized to the abdomen. Patient started experiencing this hour(s) and it has been constant. No relieving factors improve symptom(s), No exacerbating factors reported . Patient notes loss of appetite and nausea/vomiting; denies chest pain. Patient did receive the following treatments prior to arrival, none Related Data Home Medications Medication Instructions Recorded Confirmed methadone 90 mg PO DAILY #70 mg 07/23/16 09/26/18 acetaminophen [Tylenol Extra 500 mg PO Q6H PRN 09/24/18 09/26/18 Strength] ibuprofen [Ibuprofen IB] 200 mg PO QID PRN 09/24/18 09/26/18 lorazepam [Ativan] 0.5 mg PO ONCE #1 tab 09/26/18 sucralfate [Carafate] 10 ml PO QID #420 ml 09/28/18 Previous Rx's Medication Instructions Recorded lorazepam [Ativan] 0.5 mg PO ONCE #1 tab 09/26/18 sucralfate [Carafate] 10 ml PO QID #420 ml 09/28/18 Allergies Allergy/AdvReac Type Severity Reaction Status Date / Time No Known Allergies Allergy Unverified 09/26/18 13:20 General Stated Complaint: Chest Pain JAISON: 2 Review of Systems Review of Systems 6 systems reviewed and otherwise negative. No chest pain, shortness of breath, no syncopal episodes, no change to bowel or bladder habits. [facility] Social History Smoking/Tobacco Use Status: Current every day alcohol intake: former substance use type: former substance user Date of last use: crack/cocaine jelani/sikhism: Cheondoism Exam Narrative Exam Narrative: GEN: awake, alert, oriented 3. Pleasant, well groomed, interactive. HEAD: Normocephalic, atraumatic ENT: Mucous membranes moist, oropharynx unremarkable, External ear exam unremarkable EYES: PERRL, EOMI NECK: Full ROM, no PATI, no menigismus CHEST/RESP: Nontender, clear to auscultation bilateral, no wheeze/rhonchi/rales CARDIOVASCULAR: RRR, no murmur, rub hanna. 2+ Rad pulse bilateral ABDOMEN: Soft, minimal tenderness in the epigastrium, no rebound or guarding, no mass. +Bowel sounds EXT: Full ROM, no edema, no rash Neuro: Grossly normal neurologic exam, conversant, interactive. Psych: Speech fluent, thoughts congruent, affect normal Course Vital Signs Temperature 36.3 C L 09/28/18 09:54 Pulse 81 09/28/18 09:54 Respiratory Rate 18 09/28/18 09:54 Blood Pressure 139/74 09/28/18 09:54 Pulse Oximetry 97 09/28/18 09:54 Temperature 36.3 C L 09/28/18 09:54 Temperature Source Temporal Artery Scan 09/28/18 09:54 Pulse 81 09/28/18 09:54 Respiratory Rate 18 09/28/18 09:54 Respiratory Effort Non-Labored 09/28/18 09:54 Blood Pressure 139/74 09/28/18 09:54 Pulse Oximetry 97 09/28/18 09:54 Oxygen Delivery Method Room Air 09/28/18 09:54 Oxygen Flow Rate 0 09/28/18 09:54
[2018-09-28 10:31] VITALS: BP 123/82; PULSE 96; RESP 14; O2SAT 98
--- NOTE | 2018-09-28 10:35 | PDOC.ERCMPRO ---
Care Management Progress Note 09/28-Dr. Alicea requested this CM meet with patient. Patient has had five ED visits since August 28. Patient seen today for chest pain, post methadone dose. This CM met with patient. Lana states that she has anxiety and felt she used to be able to control it but now doesn't feel she can. Lana states she has completed the paperwork at [facility] to become a patient there. [facility] Lana was given the number for [facility] and states she will call them to set up an appt. This CM also called [facility] for a f/u appt (per the request of Dr. Alicea) and to see if there was anything else they needed to establish Lana. This CM spoke with the paralegal legal secretary who then transferred me to Mare (she is responsible for new patients) for which I left a message requesting a f/u. Also left contact information if further assistance was needed. Dr. Alicea in agreement with above plan.
--- NOTE | 2018-09-28 10:41 | CMPROGNOTE_ITS ---
Care Management Progress Note 09/28-Dr. Alicea requested this CM meet with patient. Patient has had five ED visits since August 28. Patient seen today for chest pain, post methadone dose. This CM met with patient. Lana states that she has anxiety and felt she used to be able to control it but now doesn't feel she can. Lana states she has completed the paperwork at [facility] to become a patient there. [facility]. Lana was given the number for [facility] and states she will call them to set up an appt. This CM also called [facility] for a f/u appt (per the request of Dr. Alicea) and to see if there was anything else they needed to establish Lana. This CM spoke with the medical secretary teacher who then transferred me to Mare (she is responsible for new patients) for which I left a message requesting a f/u. Also left contact information if further assistance was needed. Dr. Alicea in agreement with above plan.
== END 2018-09-28 10:35 | disposition home or self-care (01) ==
PROVIDERS: Emergency Provider Emergency Medicine
DX: K29.00 Acute gastritis without bleeding (principal)
CPT/HCPCS: 93005; 99283; 93010

== ENCOUNTER 2018-10-20 10:51 | Emergency (ER) | payer MEDICAID, SELFPAY ==
[2018-10-20 11:05] VITALS: BP 128/73; PULSE 85; RESP 18; TEMP 37.2; O2SAT 93
--- NOTE | 2018-10-20 11:14 | ED.GENADUL_ITS ---
Discharge Plan Disposition Patient Disposition: HOME Condition: Stable Discharge Details Chief Complaint: DentalOral Clinical Impression: Dental infection, Odontalgia Primary Care Provider: None,None ED Provider: Marii Blue Home Meds and New Rx's Prescriptions: New penicillin V potassium 500 mg tablet 500 mg PO QID 7 Days Qty: 28 RF: 0 Continued methadone 10 MG/ML concentrate 90 mg PO DAILY Qty: 70 RF: 0 Discharge Instructions Instructions: Dental Abscess (ED), Toothache (ED) Additional Instructions: You were given instructions for a dental abscess. You do not have a dental abscess on exam today, but if her symptoms significantly worsen with swelling around her tooth or jaw, you should return immediately to the emergency department. Alternate Tylenol and Motrin as needed and directed for pain. Take the antibiotics until finished. Call your dentist today to schedule follow-up appointment for reevaluation. Discharge Data Discharge Date/Time-TO BE ENTERED AT DEPARTURE: 10/20/18 11:35 Discharge Physician: Marii Blue Medical Decision Making 28yo F w/ a history of narcotic drug abuse on methadone who presents with R lower and upper tooth pain for the past 2 days. Denies fever. Patient has extensive dental caries and poor dentition and multiple missing teeth throughout. Tenderness to palpation of right lower posterior and right upper posterior teeth but no obvious abscess noted. Vitals within normal limits. Afebrile. Patient appears nontoxic. Able to speak in full sentences. No submandibular swelling. No evidence of Jeff's angina. Will give a prescription for penicillin, patient instructed to call her dentist for follow-up. She is instructed to return here at any time if worse. HPI General Mode of arrival: ambulatory . Date/Time Provider Initiated Documentation: 10/20/18 11:06 . Limitations to Documentation: no limitations . Information obtained by: patient . HPI Narrative: Patient is a 28yo F w/ a history of narcotic drug abuse on methadone who presents with R lower and upper tooth pain for the past 2 days. She admits to dental fractures in the past. Denies fever. She has been taking motrin and tylenol for pain w/o relief. She admits to pain in teeth with chewing. She denies any recent antibiotics. Related Data Home Medications Medication Instructions Recorded Confirmed methadone 90 mg PO DAILY #70 mg 07/23/16 10/20/18 penicillin V potassium 500 mg PO QID 7 Days #28 tab 10/20/18 Previous Rx's Medication Instructions Recorded penicillin V potassium 500 mg PO QID 7 Days #28 tab 10/20/18 Allergies Allergy/AdvReac Type Severity Reaction Status Date / Time No Known Allergies Allergy Unverified 10/20/18 11:09 General Stated Complaint: DentalOral JAISON: 3 Review of Systems Review of Systems All systems reviewed & are unremarkable except as noted in HPI and below Constitutional Reports as per HPI, Denies chills and Denies fever(s) Eyes Denies blurry vision ENT Reports dental pain, Denies dizziness, Denies sore throat and Denies throat swelling Cardiovascular Denies chest pain and Denies dyspnea Respiratory Denies dyspnea Gastrointestinal Denies abdominal pain, Denies diarrhea and Denies vomiting Genitourinary Denies hematuria and Denies dysuria Musculoskeletal Denies back pain and Denies numbness Integumentary/Breasts Denies lesions and Denies rash Neurologic Denies dizziness and Denies numbness Allergic/Immunologic Denies throat swelling [facility] Medical History Alcohol abuse Drug abuse (10/20/15) Hepatitis C infection Infected dental carries (10/20/15) Pancreatitis Tobacco use Surgical History section (~2007) Cholecystectomy (01/17/15) Family History Mother Substance abuse Alcohol abuse Essential hypertension Mental disorder Father Mental disorder Sister Mental disorder Social History Smoking/Tobacco Use Status: Current every day alcohol intake: former substance use type: former substance user Date of last use: crack/cocaine jelani/latter-day: Alevism Exam Const General: cooperative, healthy appearing and no acute distress HENMT Head: normal to inspection Ears: hearing grossly normal bilaterally and TM's normal bilaterally General nose exam: external nose normal Face and sinus: normal facial exam Mouth: oral mucosae normal Teeth and gingiva: other (multiple missing and fractured teeth throughout) Teeth image: 1. tenderness to palpation, erythema, edema. No abscess 2. tenderness to palpation, erythema, edema. No abscess Throat: posterior oropharynx normal Eyes General: appearance normal, both eyes and all related structures Neck Neck: normal visual inspection and no lymphadenopathy Resp Effort & Inspection: normal respiratory effort and able to speak in complete sentences Cardio Rate: regular rate Skin General skin exam: no rashes or lesions noted Neuro General: alert, awake and oriented x3 Motor: muscle tone normal throughout Extrem General: normal to inspection and full ROM Psych Appearance: grossly normal Affect: normal affect Course Vital Signs Temperature 99.0 F 10/20/18 11:05 Pulse 85 10/20/18 11:05 Respiratory Rate 18 10/20/18 11:05 Blood Pressure 128/73 10/20/18 11:05 Pulse Oximetry 93 L 10/20/18 11:05 Temperature 99.0 F 10/20/18 11:05 Temperature Source Skin 10/20/18 11:05 Pulse 85 10/20/18 11:05 Respiratory Rate 18 10/20/18 11:05 Respiratory Effort 10/20/18 11:11 Blood Pressure 128/73 10/20/18 11:05 Blood Pressure Position Sitting 10/20/18 11:05 Pulse Oximetry 93 L 10/20/18 11:05 Oxygen Delivery Method Room Air 10/20/18 11:05 Oxygen Flow Rate 0 10/20/18 11:05 Pain Level 8 10/20/18 11:05
== END 2018-10-20 11:35 | disposition home or self-care (01) ==
PROVIDERS: Emergency Provider Physician Assistant
DX: R68.84 Jaw pain (principal); K04.7 Periapical abscess without sinus
CPT/HCPCS: 99283

== ENCOUNTER 2018-12-22 08:45 | Emergency (ER) | payer MEDICAID, SELFPAY ==
[2018-12-22 08:51] VITALS: BP 134/72; PULSE 89; RESP 16; TEMP 36.2; O2SAT 98
[2018-12-22 09:08] LABS: Bilirubin Negative (Negative); Blood Negative (Negative); Clarity Sl Cloudy; Glucose Negative (Negative); Ketones Negative (Negative); Leukocyte Esterase Trace (Negative); Nitrite Positive (Negative); Urobilinogen 0.2 EU/dL (Up TO 0.2)
[2018-12-22 09:18] LABS: Bacteria Many HPF (Negative); C & S Indicated? Yes; Casts Negative LPF (Negative); Crystals Negative HPF (Negative); Epithelial Cells Few HPF (Negative); Mucus Negative (Negative); RBC 0-2 (0-2); WBC 20-50 HPF (0-5)
[2018-12-22] MEDS: Normal Saline 1,000 ML 1000 ML IV (09:55)
[2018-12-22] MEDS: LORazepam 2 MG/ML VIAL 0.5 MG IVP (10:23)
[2018-12-22 10:40] LABS: Abs Immature Grans 0.01 k/cumm (0.0-0.09); Absolute Basophil Count 0.01 k/cumm (0.0-0.2); Absolute Eosinophil Count 0.01 k/cumm (0.0-0.7); Absolute Lymphocyte Count 2.16 k/cumm (1.2-3.4); Absolute Neutrophil Count 5.17 k/cumm (1.2-6.7); Basophils % 0.1; Eosinophils % 0.1; HCT 42.7 % (36.0-46.0); HGB 14.6 g/dL (12.0-15.5); Immature Grans % 0.1; Lymphocytes % 27.5; Mean Corp. HGB Concentration 34.2 g/dL (32.0-36.0); Mean Corpuscular Hemoglobin 28.6 pg (27.0-33.0); Mean Corpuscular Volume 83.7 fL (80-95); Mean Platelet Volume 8.6 fL (8.0-11.0); Monocytes % 6.4; Neutrophils % 65.8; Platelet Count 293 x1000/uL (130-400); RBC Distribution Width 12.5 % (11.7-14.6); White Blood Cell Count 7.86 k/cumm (4.4-10.8)
[2018-12-22 10:47] LABS: ALT 84 U/L (12-78); AST 44 U/L (15-37); Albumin 3.8 g/dL (3.4-5.0); Alkaline Phosphatase 66 U/L (46-116); Anion Gap 9.4 mmol/L (3-11); BUN 12 mg/dL (7-18); Bilirubin, Total 0.5 mg/dL (0.2-1.0); CO2 26.6 mmol/L (21.0-32.0); CREATININE 0.77 mg/dL (0.55-1.02); Chloride 103 mmol/L (98-107); Glucose 98 mg/dL (70-100); Lipase 78 U/L (73-393); Magnesium 1.7 mg/dL (1.8-2.4); Potassium 3.8 mmol/L (3.5-5.1); Sodium 139 mmol/L (136-145); Total Protein 8.6 g/dL (6.4-8.2)
--- NOTE | 2018-12-22 11:15 | DI.CT_ITS ---
SYMPTOMS/DIAGNOSIS: PAIN LUQ, PRIOR PANCREATITIS AND PSEUDOCYST, + UTI CT OF THE ABDOMEN AND PELVIS: The study was carried out with an intravenous injection of 100 cc's of Omnipaque 350. Small regions of pleural thickening are noted involving the left lower lobe posteriorly. This finding not appreciably changed when compared with previous images dating back to 05/25/18. There is no evidence of an infiltrate or pleural effusion. The heart does not appear enlarged. The liver is intact. The patient is status post cholecystectomy. There is no evidence of biliary dilatation. The pancreas is intact. The spleen is unremarkable. There is bilateral nephrolithiasis and mild right hydronephrosis is demonstrated. No ureteral calculi are apparent. The bladder appears intact. There is no evidence of bowel obstruction. There is nothing to suggest an acute appendix. There is no evidence of free air or free fluid in the intraperitoneal space. The patient is status post hysterectomy. Note is made of a large fat containing ventral hernia. There is no evidence of bowel incarceration. The aorta is intact. There is no evidence of an aortic aneurysm. No acute bony abnormality is seen. SUMMARY: Bilateral nephrolithiasis and mild left hydronephrosis. There is a large ventral hernia which contains fat. There are no findings to suggest an acute abdomen.
[2018-12-22] MEDS: Omnipaque 350 MG/ML 100 ML BTL IJ (11:16)
--- NOTE | 2018-12-22 11:37 | W.ED.GENAD ---
Discharge Plan Disposition Patient Disposition: HOME Discharge Details Chief Complaint: Abd Prob Clinical Impression: Abdominal pain, Elevated LFTs, UTI (urinary tract infection) Primary Care Provider: None,None ED Provider: Fadi Medley Home Meds and New Rx's Prescriptions: New cephalexin 500 mg tablet 500 mg PO QID Qty: 56 RF: 0 Continued methadone 10 MG/ML concentrate 90 mg PO DAILY Qty: 70 RF: 0 No Action Prilosec 10 mg susp,delayed release for recon 20 mg PO DAILY 30 Days Qty: 30 RF: 0 Discharge Instructions Instructions: Urinary Tract Infection in Women (ED), Abdominal Pain (ED) Additional Instructions: Please take antibiotic as prescribed. Be sure to complete the full course. Please contact your primary care physician to arrange follow-up. Call your doctor today. Be sure to discuss your elevated blood levels. You may need additional outpatient diagnostic testing. Return to the ER for any worsening or new concerning symptoms. Discharge Data Discharge Date/Time-TO BE ENTERED AT DEPARTURE: 12/22/18 11:59 Medical Decision Making 28-year-old female with prior history of pancreatitis, pancreatic pseudocyst, remote cholecystectomy, bladder surgery related to complication, here with abdominal pain and separate bladder discomfort. Patient tender left upper quadrant. CT of the abdomen pelvis interpreted by radiology: No acute finding, ventral hernia noted with no bowel, renal stones noted, nothing to suggest acute abdominal process. Labs reviewed and nondiagnostic. Patient has mild elevation of her LFTs of unclear etiology. Plan to treat for UTI/pyelonephritis with Keflex. Disposition decision was made weighing the risks and benefits of hospitalization versus outpatient treatment, the risk for further decompensation, and the patient's wishes. The patient was stable and requested discharge. Prior to discharge, my usual and customary return precautions were reviewed with the patient - this included follow-up instructions and reason to return to the emergency department if condition worsens, does not improve as expected, or other new concerns arise. HPI General Mode of arrival: ambulatory. Date/Time Provider Initiated Documentation: 12/22/18 09:23. Limitations to Documentation: no limitations. Information obtained by: patient. HPI Narrative: 28-year-old female with prior history of pancreatitis, pancreatic pseudocyst, remote cholecystectomy, bladder surgery related to complication, here with abdominal pain. The patient notes left upper quadrant abdominal pain that started yesterday and has persisted. Pain feels like indigestion. She has had some intermittent sharp pains in the left upper abdomen. She did vomit once last night and again this a.m. She has had intermittent nausea. No associated shortness of breath. Patient also notes that she has had discomfort in her bladder over the past 1 week. Related Data Home Medications Medication Instructions Recorded Confirmed methadone 90 mg PO DAILY #70 mg 07/23/16 12/23/18 cephalexin 500 mg PO QID #56 tab 12/22/18 12/23/18 omeprazole magnesium [Prilosec] 20 mg PO DAILY 30 Days #30 each 12/23/18 Previous Rx's Medication Instructions Recorded cephalexin 500 mg PO QID #56 tab 12/22/18 omeprazole magnesium [Prilosec] 20 mg PO DAILY 30 Days #30 each 12/23/18 Allergies Allergy/AdvReac Type Severity Reaction Status Date / Time No Known Allergies Allergy Unverified 12/23/18 11:07 General Stated Complaint: Abd Prob JAISON: 3 Review of Systems Review of Systems All systems reviewed & are unremarkable except as noted in HPI and below Genitourinary Denies hematuria and Reports dysuria PFSH Social History Smoking/Tobacco Use Status: Current every day Tobacco Type: cigarettes Alcohol Intake: former Drug use: Current Sobriety Substance use type: former substance user Date of last use: crack/cocaine Nannette/Congregational: Evangelical Do you feel safe in your relationship?: Yes Exam Const General: cooperative and no acute distress HENMT Mouth: moist mucous membranes Eyes Conjunctivae: normal conjunctivae Sclera: normal sclerae Neck Neck: trachea midline and supple Resp Auscultation: clear to auscultation bilaterally, no rales, no rhonchi and no wheezes Cardio Rate: regular rate and not tachycardic Rhythm: regular rhythm GI Inspection: non-distended Palpation: soft, not firm, no guarding, no masses, not rigid and tender in the LUQ Skin General skin exam: no rashes or lesions noted Neuro General: alert, awake and tone normal Extrem General: no edema Course Vital Signs Temperature 36.2 C L 12/22/18 08:51 Pulse 89 12/22/18 08:51 Respiratory Rate 16 12/22/18 08:51 Blood Pressure 134/72 12/22/18 08:51 Pulse Oximetry 98 12/22/18 08:51 Temperature 36.2 C L 12/22/18 08:51 Temperature Source Skin 12/22/18 08:51 Pulse 89 12/22/18 08:51 Respiratory Rate 16 12/22/18 08:51 Respiratory Effort Non-Labored 12/22/18 08:51 Blood Pressure 134/72 12/22/18 08:51 Blood Pressure Position Sitting 12/22/18 08:51 Pulse Oximetry 98 12/22/18 08:51 Oxygen Delivery Method Room Air 12/22/18 08:51 Oxygen Flow Rate 0 12/22/18 08:51 Pain Level 7 12/22/18 08:51 Lab/Test Results Lab/Test Results: 12/22/18 09:00 Urine - Reflex from Ua Urine Culture - Pending Laboratory Tests Range/Units 12/22/18 12/22/18 12/22/18 09:00 09:55 09:55 WBC (4.4-10.8) k/cumm 7.86 RBC (4.00-5.20) m/cumm 5.10 Hgb (12.0-15.5) g/dL 14.6 Hct (36.0-46.0) % 42.7 MCV (80-95) fL 83.7 MCH (27.0-33.0) pg 28.6 MCHC (32.0-36.0) g/dL 34.2 RDW (11.7-14.6) % 12.5 Plt Count (130-400) x1000/uL 293 MPV (8.0-11.0) fL 8.6 Immature Gran % 0.1 Neutrophils % 65.8 Lymphocytes % 27.5 Monocytes % 6.4 Eosinophils % 0.1 Basophils % 0.1 Absolute Neutrophils (1.2-6.7) k/cumm 5.17 Absolute Lymphocytes (1.2-3.4) k/cumm 2.16 Absolute Monocytes (0.11-0.7) k/cumm 0.50 Absolute Eosinophils (0.0-0.7) k/cumm 0.01 Absolute Basophils (0.0-0.2) k/cumm 0.01 Sodium (136-145) mmol/L 139 Potassium (3.5-5.1) mmol/L 3.8 Chloride (98-107) mmol/L 103 Carbon Dioxide (21.0-32.0) mmol/L 26.6 Anion Gap (3-11) mmol/L 9.4 BUN (7-18) mg/dL 12 Creatinine (0.55-1.02) mg/dL 0.77 Estimated GFR/1.73 m2 (mL/min/1.73m2) >= 60.00 Glucose (70-100) mg/dL 98 Calcium (8.5-10.1) mg/dL 9.0 Magnesium (1.8-2.4) mg/dL 1.7 L Total Bilirubin (0.2-1.0) mg/dL 0.5 AST (15-37) U/L 44 H ALT (12-78) U/L 84 H Alkaline Phosphatase (46-116) U/L 66 Total Protein (6.4-8.2) g/dL 8.6 H Albumin (3.4-5.0) g/dL 3.8 Lipase (73-393) U/L 78 Urine Color (Yellow) Yellow Urine Clarity Sl cloudy Urine pH (5-8) 7.0 Ur Specific [place] (1.005-1.025) 1.020 Urine Protein (Negative) mg/dL Trace H Urine Ketones (Negative) mg/dL Negative Urine Blood (Negative) Negative Urine Nitrite (Negative) Positive H Urine Bilirubin (Negative) Negative Urine Urobilinogen (Up TO 0.2) EU/dL 0.2 Ur Leukocyte Esterase (Negative) Trace H Urine RBC (0-2) 0-2 Urine WBC (0-5) HPF 20-50 Ur Epithelial Cells (Negative) HPF Few Urine Crystals (Negative) HPF Negative Urine Bacteria (Negative) HPF Many Urine Casts (Negative) LPF Negative Urine Mucus (Negative) Negative Ur Culture Indicated? Yes Urine Glucose (Negative) mg/dL Negative
[2018-12-22 11:43] VITALS: BP 125/84; PULSE 82; RESP 14; TEMP 36.7; O2SAT 97
[2018-12-22 11:44] VITALS: BP 125/84; PULSE 82; RESP 14; TEMP 36.7; O2SAT 97
[2018-12-22] MEDS: Cephalexin 500 MG CAP PO (11:50)
[2018-12-22] MEDS: Magnesium Oxide 400 MG TAB PO (11:50)
== END 2018-12-22 11:59 | disposition home or self-care (01) ==
PROVIDERS: Emergency Provider Student in an Organized Health Care Education/Training Program
DX: R10.12 Left upper quadrant pain (principal); R94.5 Abnormal results of liver function studies; N39.0 Urinary tract infection, site not specified; B96.1 Klebsiella pneumoniae [K. pneumoniae] as the cause of diseases classified elsewhere
CPT/HCPCS: 36415; 80053; 83690; 87077; 96361; 96374; 99285; 74177; 81003; 81015; 83735; 85025; 87086; 87186; 99284; J2060; J3490

== ENCOUNTER 2018-12-23 10:57 | Emergency (ER) | payer MEDICAID, SELFPAY ==
[2018-12-23 11:04] VITALS: BP 137/77; PULSE 83; RESP 20; TEMP 36.8; O2SAT 97
[2018-12-23 11:07] VITALS: RESP 20
--- NOTE | 2018-12-23 11:42 | ED.GENADUL_ITS ---
Discharge Plan Disposition Patient Disposition: HOME Condition: Improving Discharge Details Chief Complaint: GenMedical Clinical Impression: GERD (gastroesophageal reflux disease), Epigastric abdominal pain Primary Care Provider: None,None ED Provider: Marii Blue Home Meds and New Rx's Prescriptions: New Prilosec 10 mg susp,delayed release for recon 20 mg PO DAILY 30 Days Qty: 30 RF: 0 Continued methadone 10 MG/ML concentrate 90 mg PO DAILY Qty: 70 RF: 0 cephalexin 500 mg tablet 500 mg PO QID Qty: 56 RF: 0 Discharge Instructions Instructions: Gastroesophageal Reflux Disease (ED), Epigastric Pain (ED) Additional Instructions: Take the Prilosec as directed. Wait approximately 30 minutes before eating. Take the antibiotics until finished. Follow-up with your primary care doctor in 1 week for reevaluation and for referral to gastroenterology or surgery for further evaluation if your symptoms do not improve or worsen. Return immediately to the emergency department with any worsening or new concerning symptoms Discharge Data Discharge Physician: Marii Blue Medical Decision Making 28yo F with a history of hepatitis C, pancreatitis, and former alcohol and cocaine abuse who presents with burning epigastric, chest pain and facial flushing since last night. Patient was seen here yesterday for sharp epigastric pain and vomiting for the past 2 days. She had lab work and imaging which were unremarkable. She had a urinalysis which noted a UTI and she was sent home with Keflex. Patient states she has taken Keflex many times in the past before and has not had this reaction. She does also admit that she has had intermittent heartburn for the past month but states it has been more intense since last night. Vitals within normal limits. She has moderate epigastric tenderness to palpation. Normal ENT exam. Lungs clear to auscultation. She appears nontoxic. Discussed with patient that her facial flushing could be possibly due to pain associated with her epigastric discomfort and heartburn. She has had heartburn on and off for a month, and its possible that it is worse with the antibiotic which can cause GI upset. She denies any tearing or ripping pain so not c/w dissection.. She denies any shortness of breath, leg pain or swelling, with normal vitals so not c/w PE. Due to patient's history of pancreatitis, will repeat lab work today. I do not see an indication for repeat abdominal imaging. We will give a dose of Pepcid and GI cocktail and reassess. EKG notes a rate of 76, sinus and T wave inversion in V2 and V3 but no acute ST findings. Labs reviewed and unremarkable. Normal white blood cell count, electrolytes. Magnesium 1.6. Troponin negative. Lipase within normal limits. Chest x-ray negative. Patient is feeling much better and requesting to go home. She denies any pain at this time. She states she would like to continue the Keflex but would like to take an antacid medication with her. We will give a prescription for Prilosec. She is instructed to watch intake of foods that may be contributing to her heartburn. She is instructed to follow the primary care doctor for reevaluation and for referral to GI/surgery if symptoms do not improve or worsen for possible EGD. She is instructed return here immediately if worse. Medical Records Medical records reviewed: Yes I reviewed the patient's medical records. Lab Data Lab results reviewed: Yes I reviewed the patient's lab results. Laboratory Tests Range/Units 12/23/18 12/23/18 11:56 11:56 WBC (4.4-10.8) k/cumm 7.54 RBC (4.00-5.20) m/cumm 4.62 Hgb (12.0-15.5) g/dL 13.6 Hct (36.0-46.0) % 38.9 MCV (80-95) fL 84.2 MCH (27.0-33.0) pg 29.4 MCHC (32.0-36.0) g/dL 35.0 RDW (11.7-14.6) % 12.5 Plt Count (130-400) x1000/uL 252 MPV (8.0-11.0) fL 8.0 Immature Gran % 0.3 Neutrophils % 59.9 Lymphocytes % 32.4 Monocytes % 6.1 Eosinophils % 1.2 Basophils % 0.1 Absolute Neutrophils (1.2-6.7) k/cumm 4.52 Absolute Lymphocytes (1.2-3.4) k/cumm 2.44 Absolute Monocytes (0.11-0.7) k/cumm 0.46 Absolute Eosinophils (0.0-0.7) k/cumm 0.09 Absolute Basophils (0.0-0.2) k/cumm 0.01 Sodium (136-145) mmol/L 138 Potassium (3.5-5.1) mmol/L 3.9 Chloride (98-107) mmol/L 102 Carbon Dioxide (21.0-32.0) mmol/L 28.5 Anion Gap (3-11) mmol/L 7.5 BUN (7-18) mg/dL 16 Creatinine (0.55-1.02) mg/dL 0.79 Estimated GFR/1.73 m2 (mL/min/1.73m2) >= 60.00 Glucose (70-100) mg/dL 92 Calcium (8.5-10.1) mg/dL 8.8 Magnesium (1.8-2.4) mg/dL 1.6 L Total Bilirubin (0.2-1.0) mg/dL 0.3 AST (15-37) U/L 31 ALT (12-78) U/L 64 Alkaline Phosphatase (46-116) U/L 63 Troponin I (0.00-0.06) ng/mL < 0.02 Total Protein (6.4-8.2) g/dL 8.0 Albumin (3.4-5.0) g/dL 3.6 Lipase (73-393) U/L 84 ECG Data Attestation: I personally reviewed and interpreted this ECG (s) as follows: Interpretation: Rate of 76, sinus, T wave inversion in V2 and V3. No acute ST elevation. QTc 438. QRS 100. HPI General Mode of arrival: ambulatory . Date/Time Provider Initiated Documentation: 12/23/18 11:08 . Limitations to Documentation: no limitations . Information obtained by: patient . HPI Narrative: Patient is a 28-year-old female with a history of hepatitis C, pancreatitis and former alcohol and cocaine abuse who presents for epigastric pain, heartburn and facial flushing since last night. Patient states she was seen here yesterday for sharp epigastric pain for the past 2 days. She had lab work and imaging which was unremarkable except for a UTI and she was discharged home with keflex. She states after returning home her sharp epigastric pain resolved but she developed burning pain from her epigastrium radiating up to her chest and causing facial flushing. She admits to nausea but denies any vomiting since yesterday morning. She denies fever, diarrhea, shortness of breath. She states her heartburn and epigastric pain is worse with eating and drinking and she denies any relief with Tums. She states she has been also taking Tylenol and Motrin without relief. Related Data Home Medications Medication Instructions Recorded Confirmed methadone 90 mg PO DAILY #70 mg 07/23/16 12/23/18 cephalexin 500 mg PO QID #56 tab 12/22/18 12/23/18 omeprazole magnesium [Prilosec] 20 mg PO DAILY 30 Days #30 each 12/23/18 Previous Rx's Medication Instructions Recorded cephalexin 500 mg PO QID #56 tab 12/22/18 omeprazole magnesium [Prilosec] 20 mg PO DAILY 30 Days #30 each 12/23/18 Allergies Allergy/AdvReac Type Severity Reaction Status Date / Time No Known Allergies Allergy Unverified 12/23/18 11:07 General Stated Complaint: GenMedical JAISON: 4 Review of Systems Review of Systems All systems reviewed & are unremarkable except as noted in HPI and below Constitutional Reports as per HPI, Denies chills and Denies fever(s) Eyes Denies blurry vision ENT Denies dizziness, Denies sore throat and Denies throat swelling Cardiovascular Reports chest pain and Denies dyspnea Respiratory Denies cough and Denies dyspnea Gastrointestinal Reports abdominal pain, Denies diarrhea and Denies vomiting Genitourinary Denies hematuria and Denies dysuria Musculoskeletal Denies back pain and Denies numbness Integumentary/Breasts Denies lesions and Denies rash Neurologic Denies dizziness, Denies focal weakness and Denies numbness Allergic/Immunologic Denies throat swelling [facility]LY [facility] Medical History Alcohol abuse Drug abuse (10/20/15) Hepatitis C infection Infected dental carries (10/20/15) Pancreatitis Tobacco use Surgical History section (~2007) Cholecystectomy (01/17/15) Social History Smoking/Tobacco Use Status: Current every day Tobacco Type: cigarettes Alcohol Intake: former Drug use: Current Sobriety Substance use type: former substance user Date of last use: crack/cocaine Nannette/Confucianism: Tenriism Do you feel safe in your relationship?: Yes Exam Const General: cooperative, healthy appearing and no acute distress HENMT Head: normal to inspection Ears: hearing grossly normal bilaterally General nose exam: external nose normal Face and sinus: normal facial exam Mouth: oral mucosae normal Throat: posterior oropharynx normal, uvula midline, no peritonsillar masses and no uvular edema Eyes General: appearance normal, both eyes and all related structures EOM: EOM intact bilaterally Neck Neck: normal visual inspection and No submandibular swelling Lymphatic: no lymphadenopathy noted Chest Chest: normal inspection of the chest and no tenderness Resp Effort & Inspection: normal respiratory effort and able to speak in complete sentences Auscultation: clear to auscultation bilaterally Cardio Rate: regular rate Rhythm: regular rhythm GI Inspection: normal to inspection Palpation: soft, not firm, not rigid and tender in the epigastrum, in the LUQ and in the RUQ Auscultation: normal bowel sounds Skin General skin exam: no rashes or lesions noted Neuro General: alert, awake and oriented x3 Cognition: normal cognition Speech: speech normal Motor: muscle tone normal throughout Sensory Exam: no sensory deficits noted Extrem General: normal to inspection, full ROM and no edema Psych Appearance: grossly normal Mental Status: mental status grossly normal Speech and Movement: speech and movement normal Affect: normal affect Course Vital Signs Temperature 98.2 F 12/23/18 11:04 Pulse 83 12/23/18 11:04 Respiratory Rate 20 12/23/18 11:04 Blood Pressure 137/77 12/23/18 11:04 Pulse Oximetry 97 12/23/18 11:04 Temperature 98.2 F 12/23/18 11:04 Temperature Source Temporal Artery Scan 12/23/18 11:04 Pulse 83 12/23/18 11:04 Respiratory Rate 20 12/23/18 11:07 Respiratory Effort Non-Labored 12/23/18 11:07 Blood Pressure 137/77 12/23/18 11:04 Blood Pressure Position Supine 12/23/18 11:04 Pulse Oximetry 97 12/23/18 11:04 Oxygen Delivery Method Room Air 12/23/18 11:04 Oxygen Flow Rate 0 12/23/18 11:04 Pain Level 7 12/23/18 11:04
[2018-12-23 11:58] LABS: Abs Immature Grans 0.02 k/cumm (0.0-0.09); Absolute Basophil Count 0.01 k/cumm (0.0-0.2); Absolute Eosinophil Count 0.09 k/cumm (0.0-0.7); Absolute Lymphocyte Count 2.44 k/cumm (1.2-3.4); Absolute Monocyte Count 0.46 k/cumm (0.11-0.7); Absolute Neutrophil Count 4.52 k/cumm (1.2-6.7); Basophils % 0.1; Eosinophils % 1.2; HCT 38.9 % (36.0-46.0); HGB 13.6 g/dL (12.0-15.5); Immature Grans % 0.3; Lymphocytes % 32.4; Mean Corpuscular Hemoglobin 29.4 pg (27.0-33.0); Mean Corpuscular Volume 84.2 fL (80-95); Monocytes % 6.1; Neutrophils % 59.9; Platelet Count 252 x1000/uL (130-400); RBC 4.62 m/cumm (4.00-5.20); RBC Distribution Width 12.5 % (11.7-14.6); White Blood Cell Count 7.54 k/cumm (4.4-10.8)
[2018-12-23 12:15] LABS: ALT 64 U/L (12-78); AST 31 U/L (15-37); Albumin 3.6 g/dL (3.4-5.0); Alkaline Phosphatase 63 U/L (46-116); Anion Gap 7.5 mmol/L (3-11); BUN 16 mg/dL (7-18); Bilirubin, Total 0.3 mg/dL (0.2-1.0); CO2 28.5 mmol/L (21.0-32.0); CREATININE 0.79 mg/dL (0.55-1.02); Calcium 8.8 mg/dL (8.5-10.1); Chloride 102 mmol/L (98-107); Glucose 92 mg/dL (70-100); Lipase 84 U/L (73-393); Magnesium 1.6 mg/dL (1.8-2.4); Potassium 3.9 mmol/L (3.5-5.1); Sodium 138 mmol/L (136-145)
[2018-12-23 12:16] LABS: Troponin I < 0.02 ng/mL (0.00-0.06)
--- NOTE | 2018-12-23 12:19 | DI.RAD_ITS ---
SYMPTOMS/DIAGNOSIS: HEARTBURN, CHEST PAIN, ? ACUTE DISEASE PA AND LATERAL CHEST: Comparison 09/24/18. The heart is normal in size. The lungs are clear. The mediastinal structures and pleura appear intact. CONCLUSION: Normal chest.
[2018-12-23] MEDS: Famotidine 20 MG TAB PO (12:45)
== END 2018-12-23 13:40 | disposition home or self-care (01) ==
PROVIDERS: Emergency Provider Physician Assistant
DX: K21.9 Gastro-esophageal reflux disease without esophagitis (principal); R10.13 Epigastric pain
CPT/HCPCS: 36415; 80053; 83690; 93005; 99285; 71046; 83735; 84484; 85025; 93010

== ENCOUNTER 2018-12-26 09:41 | Emergency (ER) | payer MEDICAID, SELFPAY ==
[2018-12-26 09:44] VITALS: BP 123/74; PULSE 98; RESP 16; TEMP 36.6; O2SAT 95
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
[2018-12-26 10:20] LABS: Bilirubin Negative (Negative); Blood Negative (Negative); Clarity Clear; Glucose Negative (Negative); Ketones Negative (Negative); Leukocyte Esterase Negative (Negative); Nitrite Negative (Negative); Urobilinogen 0.2 EU/dL (Up TO 0.2)
[2018-12-26 10:43] LABS: Abs Immature Grans 0.01 k/cumm (0.0-0.09); Absolute Basophil Count 0.01 k/cumm (0.0-0.2); Absolute Eosinophil Count 0.02 k/cumm (0.0-0.7); Absolute Lymphocyte Count 1.74 k/cumm (1.2-3.4); Absolute Monocyte Count 0.27 k/cumm (0.11-0.7); Absolute Neutrophil Count 5.76 k/cumm (1.2-6.7); Basophils % 0.1; Eosinophils % 0.3; HCT 38.8 % (36.0-46.0); HGB 13.6 g/dL (12.0-15.5); Immature Grans % 0.1; Lymphocytes % 22.3; Mean Corp. HGB Concentration 35.1 g/dL (32.0-36.0); Mean Corpuscular Hemoglobin 29.2 pg (27.0-33.0); Mean Corpuscular Volume 83.4 fL (80-95); Mean Platelet Volume 8.2 fL (8.0-11.0); Monocytes % 3.5; Neutrophils % 73.7; Platelet Count 276 x1000/uL (130-400); RBC 4.65 m/cumm (4.00-5.20); RBC Distribution Width 12.5 % (11.7-14.6); White Blood Cell Count 7.81 k/cumm (4.4-10.8)
[2018-12-26 10:44] LABS: Anion Gap 10.4 mmol/L (3-11); BUN 12 mg/dL (7-18); CO2 24.6 mmol/L (21.0-32.0); CREATININE 0.86 mg/dL (0.55-1.02); Calcium 8.4 mg/dL (8.5-10.1); Chloride 102 mmol/L (98-107); Glucose 134 mg/dL (70-100); Potassium 3.6 mmol/L (3.5-5.1); Sodium 137 mmol/L (136-145)
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
[2018-12-26 13:05] VITALS: BP 113/69; PULSE 80; RESP 16; TEMP 37; O2SAT 96
--- NOTE | 2018-12-26 13:42 | DI.RAD_ITS ---
SYMPTOMS/DIAGNOSIS: MRI ABNORMALITY, FLEXION-EXTENSION LATERAL FILMS CERVICAL SPINE, LIMITED: Flexion-extension and neural lateral views were obtained. Flexion view shows 5 mm atlantoaxial distance, extension shows 2 mm atlantoaxial distance, and neutral view shows about 6 mm atlantoaxial distance. CONCLUSION: Findings of varying atlantoaxial distance on flexion-extension and neutral lateral views raise the possibility of ligamentous laxity. Please note that MRI showed no gross evidence of impingement or compression of the upper cervical spinal cord.
[2018-12-26 15:01] VITALS: BP 110/62; PULSE 72; RESP 16; O2SAT 97
--- NOTE | 2018-12-27 09:44 | PDOC.ERCMPRO ---
Care Management Progress Note 12/27-Dr. Kumar Medley requested assistance with a PCP f/u and neurology f/u next available for congenital cervical ligamentous laxity. This CM had spoken with Gemma back in September and she wanted to go to [facility]. She has not established care there. This CM faxed referral to [facility] and received referral back stating patient belongs to [facility]. Called [facility] again, spoke with Mare. Mare stated that Lana has not returned their calls to schedule an appt. At this time, Lana has not been seen by Nazario Snider, who is the accepting PCP at [facility]. Explained the issue with getting Lana into one of our local providers. Mare stated that she could schedule Lana, requested all the ED reports since September, 5 visits, be faxed to [facility] at [phone]. Mare requested that this CM ask Gemma to call Mare at [phone] to schedule an appt. Called [facility] [place] [place] [facility] and spoke with Buck. Buck requested that all images from yesterday be pushed to Dr. Arturo Angel at [facility] [place] [place] [facility]. Buck also requested that the provider note along with referral in the note, be faxed to [phone]. [address] Kumar Medley requesting completion of note and referral so that could be faxed to [facility] [place] [place]. Called [facility] and spoke with Elmo. Elmo will push all images to Dr. Angel. Called Lana multiple times, left messages. She called back. Explained all the above to her. She will call [facility] and schedule an appt. Lana is aware that [facility] [place] [place] will reach out to her for a f/u appt.
--- NOTE | 2018-12-27 10:06 | CMPROGNOTE_ITS ---
Care Management Progress Note 12/27-Dr. Kumar Medley requested assistance with a PCP f/u and neurology f/u next available for congenital cervical ligamentous laxity. This CM had spoken with Gemma back in September and she wanted to go to [facility]. She has not established care there. This CM faxed referral to [facility] and received referral back stating patient belongs to [facility]. Called [facility] again, spoke with Mare. Mare stated that Lana has not returned their calls to schedule an appt. At this time, Lana has not been seen by Nazario Snider, who is the accepting PCP at [facility]. Explained the issue with getting Lana into one of our local providers. Mare stated that she could schedule Lana, requested all the ED reports since September, 5 visits, be faxed to [facility] at [phone]. Mare requested that this CM ask Gemma to call Mare at [phone] to schedule an appt. Called [facility] and spoke with Buck. Buck requested that all images from yesterday be pushed to Dr. Arturo Angel at [facility]. Buck also requested that the provider note along with referral in the note, be faxed to [phone]. [address] Kumar Medley requesting completion of note and referral so that could be faxed to [facility]. Called [facility] and spoke with Elmo. Elmo will push all images to Dr. Angel. Called Lana multiple times, left messages. She called back. Explained all the above to her. She will call [facility] and schedule an appt. Lana is aware that [facility] will reach out to her for a f/u appt.
== END 2018-12-26 15:00 | disposition home or self-care (01) ==
PROVIDERS: Emergency Provider Student in an Organized Health Care Education/Training Program; PCP Family Medicine
DX: R07.89 Other chest pain (principal); Q76.49 Other congenital malformations of spine, not associated with scoliosis; V43.52XA Car driver injured in collision with other type car in traffic accident, initial encounter
CPT/HCPCS: 36415; 80048; 81025; 93005; 99285; 71046; 71120; 72040; 72125; 72141; 81003; 85025; 93010; L0172

== ENCOUNTER 2018-12-31 11:49 | Emergency (ER) | payer MEDICAID, SELFPAY ==
[2018-12-31 12:05] VITALS: BP 139/77; PULSE 98; RESP 16; TEMP 36.6; O2SAT 97
[2018-12-31 12:13] LABS: Bilirubin Negative (Negative); Blood Negative (Negative); Clarity Clear; Glucose Negative (Negative); Ketones Negative (Negative); Leukocyte Esterase Negative (Negative); Nitrite Negative (Negative); Specific Gravity 1.015 (1.005-1.025); Urobilinogen 0.2 EU/dL (Up TO 0.2)
[2018-12-31] MEDS: Normal Saline 1,000 ML 1000 ML IV (12:35)
[2018-12-31 12:43] LABS: Abs Immature Grans 0.01 k/cumm (0.0-0.09); Absolute Basophil Count 0.01 k/cumm (0.0-0.2); Absolute Eosinophil Count 0.06 k/cumm (0.0-0.7); Absolute Lymphocyte Count 2.04 k/cumm (1.2-3.4); Absolute Neutrophil Count 4.78 k/cumm (1.2-6.7); Basophils % 0.1; Eosinophils % 0.8; HCT 40.1 % (36.0-46.0); HGB 13.9 g/dL (12.0-15.5); Immature Grans % 0.1; Lymphocytes % 27.6; Mean Corp. HGB Concentration 34.7 g/dL (32.0-36.0); Mean Corpuscular Hemoglobin 29.1 pg (27.0-33.0); Mean Corpuscular Volume 84.1 fL (80-95); Mean Platelet Volume 8.1 fL (8.0-11.0); Monocytes % 6.8; Neutrophils % 64.6; Platelet Count 309 x1000/uL (130-400); RBC 4.77 m/cumm (4.00-5.20); RBC Distribution Width 12.6 % (11.7-14.6)
[2018-12-31 12:58] LABS: ALT 87 U/L (12-78); AST 45 U/L (15-37); Albumin 3.7 g/dL (3.4-5.0); Alkaline Phosphatase 72 U/L (46-116); Anion Gap 6.8 mmol/L (3-11); BUN 13 mg/dL (7-18); Bilirubin, Total 0.4 mg/dL (0.2-1.0); CO2 29.2 mmol/L (21.0-32.0); CREATININE 0.77 mg/dL (0.55-1.02); Calcium 8.5 mg/dL (8.5-10.1); Chloride 102 mmol/L (98-107); Glucose 117 mg/dL (70-100); Lipase 92 U/L (73-393); Magnesium 1.9 mg/dL (1.8-2.4); Potassium 3.6 mmol/L (3.5-5.1); Sodium 138 mmol/L (136-145); Total Protein 8.4 g/dL (6.4-8.2); Troponin I < 0.02 ng/mL (0.00-0.06)
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
--- NOTE | 2018-12-31 13:12 | DI.RAD_ITS ---
SYMPTOM/DIAGNOSIS: LT SIDED CHEST PAIN AND BURNING, COUGH PA AND LATERAL CHEST: Comparison is made with 12/26/18. The heart is normal in size. The lungs are clear. The mediastinal structures and pleura appear intact. CONCLUSION: Normal chest.
[2018-12-31] MEDS: Prochlorperazine 10 MG/2 ML VIAL IVP (13:30)
[2018-12-31] MEDS: Normal Saline 50 ML (13:30)
--- NOTE | 2018-12-31 13:32 | DI.VRAD_ITS ---
EXAM: XR Chest, 2 Views EXAM DATE/TIME: 12/31/2018 12:45 PM CLINICAL HISTORY: 28 years old, female; Signs and symptoms; Cough; Patient HX: Left sided chest pain, burning, cough, R/O pneumonia TECHNIQUE: Imaging protocol: XR of the chest, 2 views. COMPARISON: CR XR CHEST 2V PA LATERAL 12/26/2018 11:23 AM FINDINGS: Lungs: Unremarkable. No consolidation. Pleural space: Unremarkable. No pleural effusion. No pneumothorax. Heart/Mediastinum: Unremarkable. No cardiomegaly. Bones/joints: Unremarkable. IMPRESSION: No acute findings. Dictated and Authenticated by: Arden Martel MD. Ordering:REYNALDO Colvin MD
[2018-12-31 14:30] VITALS: BP 119/66; PULSE 69; RESP 16; TEMP 36.6; O2SAT 99
[2018-12-31 14:53] LABS: D-Dimer 415 ng/mlFEU (<500)
[2018-12-31 15:22] VITALS: RESP 16
--- NOTE | 2019-01-02 08:51 | PDOC.ERCMPRO ---
Care Management Progress Note 01/02-Dr. Blue requested assistance with a surgical f/u for chronic epigastric pain, hernia. Referral faxed to [facility] this am.
--- NOTE | 2019-01-02 08:53 | CMPROGNOTE_ITS ---
Care Management Progress Note 01/02-Dr. Blue requested assistance with a surgical f/u for chronic epigastric pain, hernia. Referral faxed to [facility] this am.
== END 2018-12-31 14:36 | disposition home or self-care (01) ==
PROVIDERS: Emergency Provider Physician Assistant; PCP Family Medicine
DX: R10.13 Epigastric pain (principal); R07.9 Chest pain, unspecified; K43.9 Ventral hernia without obstruction or gangrene; K02.9 Dental caries, unspecified; F41.9 Anxiety disorder, unspecified
CPT/HCPCS: 36415; 80053; 83690; 96361; 96374; 99284; 71046; 81003; 83735; 84484; 85025; 85379; J0780

== ENCOUNTER 2019-01-14 10:12 | Emergency (ER) | payer MEDICAID, SELFPAY ==
--- NOTE | 2019-01-14 10:24 | NUR.NOTE ---
pt has many complaints...... primarily complaint dental. missing several teeth primary tooth problem is front upper teeth or lack there of are causing new onset pain. pain started immediately after finishing her antibiotic course for a UTI other problem list is vague focusing on general malaise
[2019-01-14 10:27] VITALS: BP 137/93; PULSE 98; RESP 17; TEMP 37.1; O2SAT 98
--- NOTE | 2019-01-14 11:04 | W.ED.GENAD ---
Discharge Plan Disposition Patient Disposition: HOME Condition: Stable Discharge Details Chief Complaint: DentalOral Clinical Impression: Chronic dental pain, Anxiety about health Primary Care Provider: Nazario Hoyos ED Provider: Mohit Barahona Home Meds and New Rx's Prescriptions: Continued methadone 10 MG/ML concentrate 90 mg PO DAILY Qty: 70 RF: 0 Discharge Instructions Instructions: Chronic Pain (ED), Anxiety (ED) Additional Instructions: Please continue use the acetaminophen ibuprofen combination as needed for discomfort. Stay well-hydrated and follow-up with your primary care provider for further reassessment of your complaints. Please arrange close dental follow-up for full treatment of your chronic dental condition and feel free to return to the emergency department for any significant worsening or change in your symptoms. Referrals: Nazario Hoyos [Primary Care Provider] - 01/16/19 (Please keep your appointment as already scheduled for Wednesday with your primary care provider) Discharge Data Discharge Date/Time-TO BE ENTERED AT DEPARTURE: 01/14/19 11:37 Medical Decision Making Patient presenting to the emergency department with chief complaint of dental pain. Patient has long ongoing history of multiple dental caries, severe tooth loss of the upper and lower jaw, and recurrent dental infections. Patient states that she was on Keflex for urinary tract infection and once she stopped the Keflex noted some increase of dental pain. Patient denies any swelling to her face, tongue or throat. Patient also denies any fever. Patient has multiple other complaints of occasional epigastric pain, nonspecific intermittent rash, and recent significant social stressors that have caused an increase in anxiety. Physical exam of the oral cavity shows severe dental loss and chronic tooth decay with very poor dental hygiene. No signs of Jeff's angina, no airway compromise, no signs of infection. Examination of cardiac and respiratory is also unremarkable and no lymphadenopathy is noted. Given patient's multiple other complaints that are fairly nonspecific and vague with her main concern of dental infection I reviewed patient's previous records and this is patient's fourth visit to the emergency department so far in the last 3 weeks. Patient does state follow-up with her primary care provider on Wednesday. Given nonspecific complaints with no worrisome physical exam findings and patient well in appearance not in any distress and non-worrisome vital signs I feel that patient is able to address these issues with her primary care provider. Return precautions were discussed. After discussion of diagnosis and plan of care patient has no further needs, questions, or concerns and states clear understanding to return to the emergency department for any worsening symptoms. HPI General Mode of arrival: ambulatory. Date/Time Provider Initiated Documentation: 01/14/19 10:23. Limitations to Documentation: no limitations. Information obtained by: patient. History of Present Illness 28 year old F presents to the emergency department with the chief complaint of Dental pain, described as moderate and similar to prior episodes, with intensity rated at 5. Quality is described as aching, and is localized to the mouth. Patient started experiencing this day(s) (4) and it has been constant. No relieving factors improve symptom(s), Patient did receive the following treatments prior to arrival, NSAID Related Data Home Medications Medication Instructions Recorded Confirmed methadone 90 mg PO DAILY #70 mg 07/23/16 01/14/19 Allergies Allergy/AdvReac Type Severity Reaction Status Date / Time No Known Allergies Allergy Unverified 01/14/19 10:28 General Stated Complaint: DentalOral JAISON: 4 Review of Systems Constitutional Denies chills, Denies fever(s) and Reports malaise ENT Reports as per HPI, Denies change in voice, Reports dental pain, Denies throat swelling and Denies tongue swelling Cardiovascular Denies chest pain Integumentary/Breasts Denies rash Psychiatric Reports anxiety Allergic/Immunologic Denies throat swelling and Denies tongue swelling [facility] Medical History Scoliosis (Chronic) Biliary colic (Acute 01/15/15) Anxiety (Chronic) Alcohol abuse Drug abuse (10/20/15) Hepatitis C infection Infected dental carries (10/20/15) Pancreatitis Tobacco use Surgical History H/O surgical procedure (Chronic) section (~2007) Cholecystectomy (01/17/15) Family History Mother Substance abuse Alcohol abuse Essential hypertension Mental disorder Father Mental disorder Sister Mental disorder Social History Smoking/Tobacco Use Status: Current every day Tobacco Type: cigarettes Alcohol Intake: current Alcohol Intake frequency: holidays/special occasions only Drug use: Daily Substance use type: marijuana Nannette/Sabianist: L[employer] Do you feel safe at home: Yes Do you feel safe in your relationship?: Yes Exam Const General: cooperative Orientation: alert, awake and oriented x3 Limitations: mental status not altered [facility] Head: normal to inspection, normocephalic and atraumatic Ears: hearing grossly normal bilaterally, normal mastoids bilaterally and no periauricular adenopathy General nose exam: external nose normal and nares normal Face and sinus: face symmetric Mouth: oropharynx normal, no drooling, no muffled voice, normal tongue and no trismus Teeth and gingiva: caries, poor dentition and other (Severe dental loss and decay throughout both upper and lower jaw) Throat: posterior oropharynx normal, tonsils normal and uvula midline Eyes General: appearance normal, both eyes and all related structures Pupils: PERRL Neck Neck: normal visual inspection, full ROM, no lymphadenopathy, no meningeal signs, trachea midline, supple, no anterior neck swelling and no midline deformity Resp Effort & Inspection: normal respiratory effort and able to speak in complete sentences Auscultation: clear to auscultation bilaterally Cardio Rate: regular rate Rhythm: regular rhythm Heart Sounds: S1 normal, S2 normal, no click, no gallops, no murmurs and no rubs Psych Mental Status: mental status grossly normal Affect: anxious affect Course Vital Signs Temperature 37.1 C 01/14/19 10:27 Pulse 98 H 01/14/19 10:27 Respiratory Rate 17 01/14/19 10:27 Blood Pressure 137/93 H 01/14/19 10:27 Pulse Oximetry 98 01/14/19 10:27 Temperature 37.1 C 01/14/19 10:27 Temperature Source Skin 01/14/19 10:27 Pulse 98 H 01/14/19 10:27 Respiratory Rate 17 01/14/19 10:27 Respiratory Effort 01/14/19 10:29 Blood Pressure 137/93 H 01/14/19 10:27 Blood Pressure Position Sitting 01/14/19 10:27 Pulse Oximetry 98 01/14/19 10:27 Oxygen Delivery Method Room Air 01/14/19 10:27 Oxygen Flow Rate 0 01/14/19 10:27 Pain Level 5 01/14/19 10:27
== END 2019-01-14 11:37 | disposition home or self-care (01) ==
PROVIDERS: Emergency Provider Nurse Practitioner Family; PCP Family Medicine
DX: F41.9 Anxiety disorder, unspecified (principal); K08.89 Other specified disorders of teeth and supporting structures; G89.29 Other chronic pain; K02.9 Dental caries, unspecified
CPT/HCPCS: 99282

== ENCOUNTER 2019-01-31 09:27 | Emergency (ER) | payer MEDICAID, SELFPAY ==
[2019-01-31 09:44] VITALS: BP 129/90; PULSE 133; RESP 16; TEMP 36.8; O2SAT 97
[2019-01-31] MEDS: Normal Saline 1,000 ML 1000 ML IV (10:03)
[2019-01-31 10:18] LABS: Abs Immature Grans 0.02 k/cumm (0.0-0.09); Absolute Basophil Count 0.01 k/cumm (0.0-0.2); Absolute Eosinophil Count 0.06 k/cumm (0.0-0.7); Absolute Lymphocyte Count 2.79 k/cumm (1.2-3.4); Absolute Neutrophil Count 4.03 k/cumm (1.2-6.7); Basophils % 0.1; Eosinophils % 0.8; HCT 42.4 % (36.0-46.0); HGB 14.7 g/dL (12.0-15.5); Immature Grans % 0.3; Lymphocytes % 38.2; Mean Corp. HGB Concentration 34.7 g/dL (32.0-36.0); Mean Corpuscular Hemoglobin 29.5 pg (27.0-33.0); Mean Corpuscular Volume 85.1 fL (80-95); Mean Platelet Volume 8.2 fL (8.0-11.0); Monocytes % 5.5; Neutrophils % 55.1; Platelet Count 299 x1000/uL (130-400); RBC 4.98 m/cumm (4.00-5.20); RBC Distribution Width 12.8 % (11.7-14.6); White Blood Cell Count 7.31 k/cumm (4.4-10.8)
--- NOTE | 2019-01-31 10:25 | DI.RAD_ITS ---
SYMPTOM/DIAGNOSIS: CHEST PAIN, DIZZY, PALPITATIONS PA AND LATERAL CHEST: Comparison is made with 12/31/18. The heart is normal in size. The lungs are clear. The mediastinal structures and pleura appear intact. CONCLUSION: Normal chest.
[2019-01-31 10:28] LABS: ALT 87 U/L (12-78); AST 44 U/L (15-37); Albumin 3.7 g/dL (3.4-5.0); Alkaline Phosphatase 63 U/L (46-116); BUN 11 mg/dL (7-18); Bilirubin, Total 0.6 mg/dL (0.2-1.0); CREATININE 0.76 mg/dL (0.55-1.02); Calcium 8.7 mg/dL (8.5-10.1); Chloride 100 mmol/L (98-107); Glucose 138 mg/dL (70-100); Magnesium 1.6 mg/dL (1.8-2.4); Potassium 3.7 mmol/L (3.5-5.1); Sodium 136 mmol/L (136-145); Total Protein 8.5 g/dL (6.4-8.2)
[2019-01-31 10:30] LABS: Troponin I < 0.02 ng/mL (0.00-0.06)
--- NOTE | 2019-01-31 10:34 | W.ED.GENAD ---
Discharge Plan Disposition Patient Disposition: HOME Condition: Improving Discharge Details Chief Complaint: GenMedical Clinical Impression: Dizziness, Palpitations, Dehydration Primary Care Provider: Nazario Hoyos ED Provider: Marii Blue Home Meds and New Rx's Prescriptions: Continued methadone 10 MG/ML concentrate 90 mg PO DAILY Qty: 70 RF: 0 Multi For Her 18 mg iron-600 mcg-40 mcg Capsule 1 tab-cap PO QAM RF: 0 Discharge Instructions Instructions: Palpitations (ED), Dehydration (ED), Dizziness (ED) Additional Instructions: Drink plenty of fluids and get plenty of rest. Follow-up with your primary care doctor in 2 days for reevaluation. Return to the emergency department with any worsening or new concerning symptoms. Discharge Data Discharge Date/Time-TO BE ENTERED AT DEPARTURE: 01/31/19 12:20 Discharge Physician: Marii Blue Medical Decision Making 28-year-old female with history of pancreatitis, hepatitis C, anxiety and previous opiate abuse currently on methadone who presents with palpitations, dizziness, nausea, chest pain, shortness of breath that started 2 days ago after being in the sun all day. States her symptoms worse today which she feels like is due to anxiety and dehydration. Patient has been seen in the ED multiple times for similar related complaints and had multiple negative work-ups. Heart rate on immediately on arrival 133 and then decreased to within normal limits. Remainder vitals within normal limits. Patient was referred for screening labs and cxr on arrival and given a bolus IV fluids. EKG notes a rate of 92 and sinus with no acute ST findings. 1130 -- Labs and CXR reviewed and unremarkable. Patient states she feels much better and she is requesting to go home. She initially had facial flushing on arrival but this is now resolved and she appears much more comfortable. Heart rate 70s. Oxygen saturation 100% on room air. PERC negative upon my evaluation and no dvt/pe risk factors. Patient instructed to drink plenty of fluids, get plenty of rest, follow-up with a primary care doctor and to return here if worse. Medical Records Medical records reviewed: Yes I reviewed the patient's medical records. Imaging Data Radiologic Study: Radiologist's impression: PA AND LATERAL CHEST: Comparison is made with 12/31/18. The heart is normal in size. The lungs are clear. The mediastinal structures and pleura appear intact. CONCLUSION: Normal chest. Lab Data Lab results reviewed: Yes I reviewed the patient's lab results. Laboratory Tests Range/Units 01/31/19 01/31/19 10:00 10:00 WBC (4.4-10.8) k/cumm 7.31 RBC (4.00-5.20) m/cumm 4.98 Hgb (12.0-15.5) g/dL 14.7 Hct (36.0-46.0) % 42.4 MCV (80-95) fL 85.1 MCH (27.0-33.0) pg 29.5 MCHC (32.0-36.0) g/dL 34.7 RDW (11.7-14.6) % 12.8 Plt Count (130-400) x1000/uL 299 MPV (8.0-11.0) fL 8.2 Immature Gran % 0.3 Neutrophils % 55.1 Lymphocytes % 38.2 Monocytes % 5.5 Eosinophils % 0.8 Basophils % 0.1 Absolute Neutrophils (1.2-6.7) k/cumm 4.03 Absolute Lymphocytes (1.2-3.4) k/cumm 2.79 Absolute Monocytes (0.11-0.7) k/cumm 0.40 Absolute Eosinophils (0.0-0.7) k/cumm 0.06 Absolute Basophils (0.0-0.2) k/cumm 0.01 Sodium (136-145) mmol/L 136 Potassium (3.5-5.1) mmol/L 3.7 Chloride (98-107) mmol/L 100 Carbon Dioxide (21.0-32.0) mmol/L 27.0 Anion Gap (3-11) mmol/L 9.0 BUN (7-18) mg/dL 11 Creatinine (0.55-1.02) mg/dL 0.76 Estimated GFR/1.73 m2 (mL/min/1.73m2) >= 60.00 Glucose (70-100) mg/dL 138 H Calcium (8.5-10.1) mg/dL 8.7 Magnesium (1.8-2.4) mg/dL 1.6 L Total Bilirubin (0.2-1.0) mg/dL 0.6 AST (15-37) U/L 44 H ALT (12-78) U/L 87 H Alkaline Phosphatase (46-116) U/L 63 Troponin I (0.00-0.06) ng/mL < 0.02 Total Protein (6.4-8.2) g/dL 8.5 H Albumin (3.4-5.0) g/dL 3.7 ECG Data Attestation: I personally reviewed and interpreted this ECG (s) as follows: Interpretation: Rate of 92, sinus, no acute ST elevation or depression. QTc 458. QRS 102. HPI General Mode of arrival: ambulatory. Date/Time Provider Initiated Documentation: 01/31/19 09:50. Limitations to Documentation: no limitations. Information obtained by: patient. HPI Narrative: Patient is a 28-year-old female with history of pancreatitis, anxiety and hepatitis C with previous opiate abuse on methadone who presents with palpitations, dizziness, nausea, chest pain shortness of breath that started 2 days ago after being in the sun all day. Patient states she feels like it was due to dehydration from being in the sun as she had a sunburn from that day. She states symptoms were a little bit better today but then restarted again today and she felt like they were made worse by anxiety. Patient denies any leg pain or swelling, recent travel, recent surgery, vomiting, diarrhea or abdominal pain. Related Data Home Medications Medication Instructions Recorded Confirmed methadone 90 mg PO DAILY #70 mg 07/23/16 01/31/19 Multi For Her 1 tab-cap PO QAM 01/31/19 01/31/19 Allergies Allergy/AdvReac Type Severity Reaction Status Date / Time No Known Allergies Allergy Unverified 01/31/19 09:47 General Stated Complaint: GenMedical JAISON: 3 Review of Systems Review of Systems All systems reviewed & are unremarkable except as noted in HPI and below Constitutional Reports as per HPI, Denies chills and Denies fever(s) Eyes Denies blurry vision ENT Denies dizziness, Denies sore throat and Denies throat swelling Cardiovascular Reports chest pain, Reports palpitations and Reports dyspnea Respiratory Denies cough and Reports dyspnea Gastrointestinal Denies abdominal pain, Denies diarrhea and Denies vomiting Genitourinary Denies hematuria and Denies dysuria Musculoskeletal Denies back pain and Denies numbness Integumentary/Breasts Denies lesions and Denies rash Neurologic Denies dizziness, Denies focal weakness and Denies numbness Endocrine Reports palpitations Allergic/Immunologic Denies throat swelling [facility] Medical History Scoliosis (Chronic) Biliary colic (Acute 01/15/15) Anxiety (Chronic) Alcohol abuse Drug abuse (10/20/15) Hepatitis C infection Infected dental carries (10/20/15) Pancreatitis Tobacco use Surgical History H/O surgical procedure (Chronic) section (~2007) Cholecystectomy (01/17/15) Family History Mother Substance abuse Alcohol abuse Essential hypertension Mental disorder Father Mental disorder Sister Mental disorder Social History Smoking/Tobacco Use Status: Current every day Tobacco Type: cigarettes Alcohol Intake: current Alcohol Intake frequency: holidays/special occasions only Drug use: Daily Substance use type: marijuana Nannette/Gnosticist: Worship Do you feel safe at home: Yes Do you feel safe in your relationship?: Yes Exam Const General: cooperative, healthy appearing and no acute distress HENMT Head: normal to inspection Face and sinus: normal facial exam Eyes General: appearance normal, both eyes and all related structures EOM: EOM intact bilaterally Neck Neck: normal visual inspection and No submandibular swelling Lymphatic: no lymphadenopathy noted Chest Chest: normal inspection of the chest and no tenderness Resp Effort & Inspection: normal respiratory effort and able to speak in complete sentences Auscultation: clear to auscultation bilaterally Cardio Rate: regular rate Rhythm: regular rhythm GI Inspection: normal to inspection Palpation: soft, not firm, not rigid and nontender Auscultation: normal bowel sounds Skin General skin exam: no rashes or lesions noted Neuro General: alert, awake and oriented x3 Cognition: normal cognition Speech: speech normal Motor: muscle tone normal throughout Sensory Exam: no sensory deficits noted Extrem General: normal to inspection, full ROM, normal capillary refill, no calf tenderness bilaterally and no edema Psych Appearance: grossly normal Mental Status: mental status grossly normal Speech and Movement: speech and movement normal Affect: normal affect Course Vital Signs Temperature 98.2 F 01/31/19 09:44 Pulse 133 H 01/31/19 09:44 Respiratory Rate 16 01/31/19 09:44 Blood Pressure 129/90 01/31/19 09:44 Pulse Oximetry 97 01/31/19 09:44 Temperature 98.2 F 01/31/19 09:44 Temperature Source Temporal Artery Scan 01/31/19 09:44 Pulse 133 H 01/31/19 09:44 Respiratory Rate 16 01/31/19 09:44 Blood Pressure 129/90 01/31/19 09:44 Blood Pressure Position Sitting 01/31/19 09:44 Pulse Oximetry 97 01/31/19 09:44 Oxygen Delivery Method Room Air 01/31/19 09:44 Oxygen Flow Rate 0 01/31/19 09:44 Pain Level 4 01/31/19 09:44 Lab/Test Results Lab/Test Results: Laboratory Tests Range/Units 01/31/19 01/31/19 10:00 10:00 WBC (4.4-10.8) k/cumm 7.31 RBC (4.00-5.20) m/cumm 4.98 Hgb (12.0-15.5) g/dL 14.7 Hct (36.0-46.0) % 42.4 MCV (80-95) fL 85.1 MCH (27.0-33.0) pg 29.5 MCHC (32.0-36.0) g/dL 34.7 RDW (11.7-14.6) % 12.8 Plt Count (130-400) x1000/uL 299 MPV (8.0-11.0) fL 8.2 Immature Gran % 0.3 Neutrophils % 55.1 Lymphocytes % 38.2 Monocytes % 5.5 Eosinophils % 0.8 Basophils % 0.1 Absolute Neutrophils (1.2-6.7) k/cumm 4.03 Absolute Lymphocytes (1.2-3.4) k/cumm 2.79 Absolute Monocytes (0.11-0.7) k/cumm 0.40 Absolute Eosinophils (0.0-0.7) k/cumm 0.06 Absolute Basophils (0.0-0.2) k/cumm 0.01 Sodium (136-145) mmol/L 136 Potassium (3.5-5.1) mmol/L 3.7 Chloride (98-107) mmol/L 100 Carbon Dioxide (21.0-32.0) mmol/L 27.0 Anion Gap (3-11) mmol/L 9.0 BUN (7-18) mg/dL 11 Creatinine (0.55-1.02) mg/dL 0.76 Estimated GFR/1.73 m2 (mL/min/1.73m2) >= 60.00 Glucose (70-100) mg/dL 138 H Calcium (8.5-10.1) mg/dL 8.7 Magnesium (1.8-2.4) mg/dL 1.6 L Total Bilirubin (0.2-1.0) mg/dL 0.6 AST (15-37) U/L 44 H ALT (12-78) U/L 87 H Alkaline Phosphatase (46-116) U/L 63 Troponin I (0.00-0.06) ng/mL < 0.02 Total Protein (6.4-8.2) g/dL 8.5 H Albumin (3.4-5.0) g/dL 3.7
[2019-01-31 11:43] VITALS: RESP 16
[2019-01-31 12:16] VITALS: BP 118/79; PULSE 72; RESP 16; TEMP 36.6; O2SAT 98
== END 2019-01-31 12:20 | disposition home or self-care (01) ==
PROVIDERS: Emergency Provider Physician Assistant; PCP Family Medicine
DX: R42 Dizziness and giddiness (principal); R00.0 Tachycardia, unspecified; E86.0 Dehydration
CPT/HCPCS: 36415; 80053; 93005; 96360; 99285; 71046; 83735; 84484; 85025; 93010

== ENCOUNTER 2019-02-02 09:23 | Emergency (ER) | payer MEDICAID, SELFPAY ==
[2019-02-02 09:27] VITALS: BP 129/80; PULSE 84; RESP 16; TEMP 36.8; O2SAT 97
--- NOTE | 2019-02-02 10:25 | W.ED.GENAD ---
Discharge Plan Disposition Patient Disposition: HOME Condition: Stable Discharge Details Chief Complaint: DentalOral Clinical Impression: Pain due to dental caries Primary Care Provider: Nazario Hoyos ED Provider: Mohit Barahona Home Meds and New Rx's Prescriptions: Continued methadone 10 MG/ML concentrate 90 mg PO DAILY Qty: 70 RF: 0 Multi For Her 18 mg iron-600 mcg-40 mcg Capsule 1 tab-cap PO QAM RF: 0 No Action clindamycin HCl 300 mg Capsule 300 mg PO Q6H RF: 0 Discharge Instructions Instructions: Dental Caries (ED) Additional Instructions: wait 24 hours before starting antibiotic and continue to use pain control with 600 of ibuprofen along with 650 of Tylenol every 6 hours and apply ice packs to see if this helps resolve her situation. For any worsening symptoms or swelling start the antibiotic immediately. You need to follow-up with a dentist as soon as possible for assessment and establishment of dental plan to give definitive care of your condition. Referrals: Nazario Hoyos [Primary Care Provider] - (As needed for reassessment) Discharge Data Discharge Date/Time-TO BE ENTERED AT DEPARTURE: 02/02/19 10:38 Medical Decision Making Patient presented to the emergency department for chief complaint of dental pain. Patient states ongoing dental pain but last night she started having worsening dental pain that started with tooth #18 and now is radiating through 19 and 20. She does state some associated numbness to that area of the jaw. She does also report swelling to the jaw that occurred last night but that is improved. Physical exam shows severe dental decay and tooth loss. As far as the area of concern patient has no erythema, no swelling, no purulent drainage noted, no lymphadenopathy no facial swelling, diffuse tenderness to the left lower jaw upon palpation but no palpable abnormality or defect. Patient is stable in appearance, nontoxic, with normal vital signs. I feel that this is more chronic dental pain issues but given very poor mentation there is concern for possible infection. Given that there are no evident signs of this currently I informed patient that I would be prescribing her penicillin VK 500mg Q6H but that she should wait 24 hours and continue to use pain control with 600mg of ibuprofen along with 650mg of Tylenol every 6 hours and apply ice packs to see if this helps resolve her situation. For any worsening symptoms or swelling she is to start the antibiotic immediately. Thoroughly discussed with patient need for appropriate dental follow-up and definitive treatment of her condition. After discussion of diagnosis and plan of care patient has no further needs, questions, or concerns and states clear understanding to return to the emergency department for any worsening symptoms. HPI General Mode of arrival: ambulatory. Date/Time Provider Initiated Documentation: 02/02/19 10:07. Limitations to Documentation: no limitations. Information obtained by: patient. History of Present Illness 28 year old F presents to the emergency department with the chief complaint of Dental pain, described as severe and similar to prior episodes, with intensity rated at 9. Quality is described as sharp, and is localized to the mouth. Patient started experiencing this day(s) (3) and it has been constant. No relieving factors improve symptom(s), Patient notes no other symptoms.. Patient did receive the following treatments prior to arrival, NSAID Related Data Home Medications Medication Instructions Recorded Confirmed methadone 90 mg PO DAILY #70 mg 07/23/16 02/07/19 Multi For Her 1 tab-cap PO QAM 01/31/19 02/07/19 clindamycin HCl 300 mg PO Q6H 02/07/19 02/07/19 Allergies Allergy/AdvReac Type Severity Reaction Status Date / Time No Known Allergies Allergy Unverified 02/07/19 14:21 General Stated Complaint: DentalOral JAISON: 4 Review of Systems Constitutional Denies chills and Denies fever(s) ENT Reports as per HPI, Denies change in voice, Reports dental pain, Denies dysphagia, Denies throat swelling and Denies tongue swelling Cardiovascular Denies chest pain and Denies dyspnea Respiratory Denies dyspnea, Denies stridor and Denies wheezing Gastrointestinal Denies abdominal pain, Denies dysphagia, Denies nausea and Denies vomiting Integumentary/Breasts Denies rash Allergic/Immunologic Denies throat swelling, Denies tongue swelling and Denies wheezing [facility] Social History Smoking/Tobacco Use Status: Current every day Tobacco Type: cigarettes Alcohol Intake: current Alcohol Intake frequency: holidays/special occasions only Drug use: Daily Substance use type: marijuana Nannette/Quaker: Roman Catholic Do you feel safe at home: Yes Do you feel safe in your relationship?: Yes Exam Const General: cooperative Orientation: alert, awake and oriented x3 Limitations: mental status not altered HENMT Head: normal to inspection, normocephalic and atraumatic Ears: hearing grossly normal bilaterally, normal mastoids bilaterally and no periauricular adenopathy General nose exam: external nose normal Mouth: oropharynx normal, no drooling, no muffled voice, normal tongue and no trismus Teeth and gingiva: caries, poor dentition and other (Complete tooth loss of tooth #19 #20) Throat: posterior oropharynx normal, tonsils normal and uvula midline Eyes General: appearance normal, both eyes and all related structures Pupils: PERRL Neck Neck: normal visual inspection, full ROM, no lymphadenopathy, no meningeal signs, trachea midline, supple, no anterior neck swelling and no midline deformity Resp Effort & Inspection: normal respiratory effort and able to speak in complete sentences Course Vital Signs Temperature 36.8 C 02/02/19 09:27 Pulse 84 02/02/19 09:27 Respiratory Rate 16 02/02/19 09:27 Blood Pressure 129/80 02/02/19 09:27 Pulse Oximetry 97 02/02/19 09:27 Temperature 36.8 C 02/02/19 09:27 Temperature Source Temporal Artery Scan 02/02/19 09:27 Pulse 84 02/02/19 09:27 Respiratory Rate 16 02/02/19 09:27 Respiratory Effort Non-Labored 02/02/19 09:32 Blood Pressure 129/80 02/02/19 09:27 Blood Pressure Position Sitting 02/02/19 09:27 Pulse Oximetry 97 02/02/19 09:27 Oxygen Delivery Method Room Air 02/02/19 09:27 Oxygen Flow Rate 0 02/02/19 09:27 Pain Level 9 02/02/19 09:33
--- NOTE | 2019-02-02 10:29 | ED.GENADUL_ITS ---
Discharge Plan Disposition Patient Disposition: HOME Condition: Stable Discharge Details Chief Complaint: DentalOral Clinical Impression: Pain due to dental caries Primary Care Provider: Nazario Hoyos ED Provider: Mohit Barahona Home Meds and New Rx's Prescriptions: Continued methadone 10 MG/ML concentrate 90 mg PO DAILY Qty: 70 RF: 0 Multi For Her 18 mg iron-600 mcg-40 mcg Capsule 1 tab-cap PO QAM RF: 0 No Action clindamycin HCl 300 mg Capsule 300 mg PO Q6H RF: 0 Discharge Instructions Instructions: Dental Caries (ED) Additional Instructions: wait 24 hours before starting antibiotic and continue to use pain control with 600 of ibuprofen along with 650 of Tylenol every 6 hours and apply ice packs to see if this helps resolve her situation. For any worsening symptoms or swelling start the antibiotic immediately. You need to follow-up with a dentist as soon as possible for assessment and establishment of dental plan to give definitive care of your condition. Referrals: Nazario Hoyos [Primary Care Provider] - (As needed for reassessment) Discharge Data Discharge Date/Time-TO BE ENTERED AT DEPARTURE: 02/02/19 10:38 Medical Decision Making Patient presented to the emergency department for chief complaint of dental pain. Patient states ongoing dental pain but last night she started having worsening dental pain that started with tooth #18 and now is radiating through 19 and 20. She does state some associated numbness to that area of the jaw. She does also report swelling to the jaw that occurred last night but that is improved. Physical exam shows severe dental decay and tooth loss. As far as the area of concern patient has no erythema, no swelling, no purulent drainage noted, no lymphadenopathy no facial swelling, diffuse tenderness to the left low er jaw upon palpation but no palpable abnormality or defect. Patient is stable in appearance, nontoxic, with normal vital signs. I feel that this is more chronic dental pain issues but given very poor mentation there is concern for possible infection. Given that there are no evident signs of this currently I informed patient that I would be prescribing her penicillin VK 500mg Q6H but that she should wait 24 hours and continue to use pain control with 600mg of ibuprofen along with 650mg of Tylenol every 6 hours and apply ice packs to see if this helps resolve her situation. For any worsening symptoms or swelling she is to start the antibiotic immediately. Thoroughly discussed with patient need for appropriate dental follow-up and definitive treatment of her condition. After discussion of diagnosis and plan of care patient has no further needs, questions, or concerns and states clear understanding to return to the emergency department for any worsening symptoms. HPI General Mode of arrival: ambulatory . Date/Time Provider Initiated Documentation: 02/02/19 10:07 . Limitations to Documentation: no limitations . Information obtained by: patient . History of Present Illness 28 year old F presents to the emergency department with the chief complaint of Dental pain, described as severe and similar to prior episodes, with intensity rated at 9. Quality is described as sharp, and is localized to the mouth. Patient started experiencing this day(s) (3) and it has been constant. No relieving factors improve symptom(s), Patient notes no other symptoms.. Patient did receive the following treatments prior to arrival, NSAID Related Data Home Medications Medication Instructions Recorded Confirmed methadone 90 mg PO DAILY #70 mg 07/23/16 02/07/19 Multi For Her 1 tab-cap PO QAM 01/31/19 02/07/19 clindamycin HCl 300 mg PO Q6H 02/07/19 02/07/19 Allergies Allergy/AdvReac Type Severity Reaction Status Date / Time No Known Allergies Allergy Unverified 02/07/19 14:21 General Stated Complaint: DentalOral JAISON: 4 Review of Systems Constitutional Denies chills and Denies fever(s) ENT Reports as per HPI, Denies change in voice, Reports dental pain, Denies dysphagia, Denies throat swelling and Denies tongue swelling Cardiovascular Denies chest pain and Denies dyspnea Respiratory Denies dyspnea, Denies stridor and Denies wheezing Gastrointestinal Denies abdominal pain, Denies dysphagia, Denies nausea and Denies vomiting Integumentary/Breasts Denies rash Allergic/Immunologic Denies throat swelling, Denies tongue swelling and Denies wheezing [facility] Social History Smoking/Tobacco Use Status: Current every day Tobacco Type: cigarettes Alcohol Intake: current Alcohol Intake frequency: holidays/special occasions only Drug use: Daily Substance use type: marijuana Nannette/Shinto: Buddhist Do you feel safe at home: Yes Do you feel safe in your relationship?: Yes Exam Const General: cooperative Orientation: alert, awake and oriented x3 Limitations: mental status not altered HENMT Head: normal to inspection, normocephalic and atraumatic Ears: hearing grossly normal bilaterally, normal mastoids bilaterally and no periauricular adenopathy General nose exam: external nose normal Mouth: oropharynx normal, no drooling, no muffled voice, normal tongue and no trismus Teeth and gingiva: caries, poor dentition and other (Complete tooth loss of tooth #19 #20) Throat: posterior oropharynx normal, tonsils normal and uvula midline Eyes General: appearance normal, both eyes and all related structures Pupils: PERRL Neck Neck: normal visual inspection, full ROM, no lymphadenopathy, no meningeal signs, trachea midline, supple, no anterior neck swelling and no midline deformity Resp Effort & Inspection: normal respiratory effort and able to speak in complete sentences Course Vital Signs Temperature 36.8 C 02/02/19 09:27 Pulse 84 02/02/19 09:27 Respiratory Rate 16 02/02/19 09:27 Blood Pressure 129/80 02/02/19 09:27 Pulse Oximetry 97 02/02/19 09:27 Temperature 36.8 C 02/02/19 09:27 Temperature Source Temporal Artery Scan 02/02/19 09:27 Pulse 84 02/02/19 09:27 Respiratory Rate 16 02/02/19 09:27 Respiratory Effort Non-Labored 02/02/19 09:32 Blood Pressure 129/80 02/02/19 09:27 Blood Pressure Position Sitting 02/02/19 09:27 Pulse Oximetry 97 02/02/19 09:27 Oxygen Delivery Method Room Air 02/02/19 09:27 Oxygen Flow Rate 0 02/02/19 09:27 Pain Level 9 02/02/19 09:33
== END 2019-02-02 10:38 | disposition home or self-care (01) ==
PROVIDERS: Emergency Provider Nurse Practitioner Family; PCP Family Medicine
DX: K08.89 Other specified disorders of teeth and supporting structures (principal); K02.9 Dental caries, unspecified
CPT/HCPCS: 99283

== ENCOUNTER 2019-02-06 17:16 | Emergency (ER) | payer MEDICAID, SELFPAY ==
[2019-02-06 17:23] VITALS: BP 154/85; PULSE 78; RESP 16; TEMP 36.5; O2SAT 99
--- NOTE | 2019-02-07 15:40 | ED.GENADUL_ITS ---
Discharge Plan Discharge Details Chief Complaint: DentalOral Primary Care Provider: Nazario Hoyos ED Provider: Tasneem Medley Home Meds and New Rx's Prescriptions: No Action methadone 10 MG/ML concentrate 90 mg PO DAILY Qty: 70 RF: 0 Multi For Her 18 mg iron-600 mcg-40 mcg Capsule 1 tab-cap PO QAM RF: 0 clindamycin HCl 300 mg Capsule 300 mg PO Q6H RF: 0 Discharge Data Discharge Date/Time-TO BE ENTERED AT DEPARTURE: 02/06/19 20:00 Medical Decision Making Lana Keen is a 28 y/o woman with history of anxiety, drug abuse now on methadone who presented to the emergency department with concern for swelling of her left jaw neck and left supraclavicular area after having left dental abscess incision and drainage performed earlier today. On exam patient is well and nontoxic appearing. No significant intraoral lesion or edema, no edema of the neck or supraclavicular area, no lymphadenopathy. Normal range of motion of the neck. Exam/history is not consistent with Jeff's angina, deep space infection, meningitis, impending airway compromise, other acute emergent life- threatening process. Suspect possible dependent edema now resolved after procedure. I had a discussion with the patient regarding return to emergency department precautions and importance of outpatient follow-up with her dentist and PCP. Patient was seen in the results waiting area, and reported that she needed to leave immediately after my examination and our discussion. She elected to leave the emergency department without discharge paperwork, however discharge planning was discussed with her. She verbalized understanding the plan was amenable. All questions were answered. Medical Records Medical records reviewed: Yes I reviewed the patient's medical records. HPI General Mode of arrival: ambulatory . Date/Time Provider Initiated Documentation: 02/06/19 17:28 . Limitations to Documentation: no limitations . Information obtained by: patient, RN notes reviewed and old records reviewed . HPI Narrative: Lana Keen is a 28 y/o woman with history of anxiety, drug use now on methadone presenting to the emergency department with swelling after dental procedure. Patient reports that presently 4 days ago she noticed sw elling and pain in her left lower jaw. Earlier today she saw a dentist and had incision and drainage performed of a dental abscess. Patient reports that since the procedure she has felt like she has had increased swelling to the lower jaw and into the left neck and shoulder. Patient reports that she had been lying flat for. After the procedure was performed. Patient notes that since she has been in the emergency department and has been sitting upright for some time, she reports that the swelling seems to have decreased substantially. She reports that her pain is minimal. She denies any other pain, swelling, fever, vomiting, rash and reports that she is otherwise in her usual state of health. Has been taking clindamycin as prescribed. Related Data Home Medications Medication Instructions Recorded Confirmed methadone 90 mg PO DAILY #70 mg 07/23/16 02/07/19 Multi For Her 1 tab-cap PO QAM 01/31/19 02/07/19 clindamycin HCl 300 mg PO Q6H 02/07/19 02/07/19 Allergies Allergy/AdvReac Type Severity Reaction Status Date / Time No Known Allergies Allergy Unverified 02/07/19 14:21 General Stated Complaint: DentalOral JAISON: 3 Review of Systems Review of Systems Constitutional: denies fevers Eyes: denies eye pain ENT: denies facial pain, sore throat, reports dental pain left lower molars Cardiovascular: denies chest pain Respiratory: denies SOB, cough GI: denies abdominal pain, vomiting : denies flank pain MSK: denies back pain, neck pain Skin: denies rash Neuro: denies headaches PFSH Medical History Scoliosis (Chronic) Biliary colic (Acute 01/15/15) Anxiety (Chronic) Alcohol abuse Drug abuse (10/20/15) Hepatitis C infection Infected dental carries (10/20/15) Pancreatitis Tobacco use Social History Smoking/Tobacco Use Status: Current every day Tobacco Type: cigarettes Alcohol Intake: current Alcohol Intake frequency: holidays/special occasions only Drug use: Daily Substance use type: marijuana Nannette/Mosque: Uatsdin Do you feel safe at home: Yes Do you feel safe in your relationship?: Yes Exam Narrative Exam Narrative: Constitutional: well and [id number], pleasant, conversing normally HENT: head atraumatic/normocephalic/normal inspection, mucous membranes moist, erythema with mild edema of the gingiva of the left lower premolars, no drainage, no edema over the mandible Eyes: conjunctiva normal, sclera normal, pupils 3mm b/l Neck: no stridor, normal ROM, trachea midline, no edema appreciated of the neck or supraclavicular area on the left in area of patient concern Resp: normal work of breathing Cardio: normal rate, normal rhythm Skin: warm, dry, normal color, no rash Neuro: alert, not altered, grossly non-focal, normal tone, normal gait Psych: normal mood, normal affect, normal behavior Course Vital Signs Temperature 36.5 C 02/06/19 17:23 Pulse 78 02/06/19 17:23 Respiratory Rate 16 02/06/19 17:23 Blood Pressure 154/85 H 02/06/19 17:23 Pulse Oximetry 99 02/06/19 17:23 Temperature 36.5 C 02/06/19 17:23 Temperature Source Skin 02/06/19 17:23 Pulse 78 02/06/19 17:23 Respiratory Rate 16 02/06/19 17:23 Blood Pressure 154/85 H 02/06/19 17:23 Blood Pressure Position Sitting 02/06/19 17:23 Pulse Oximetry 99 02/06/19 17:23 Oxygen Delivery Method Room Air 02/06/19 17:23 Oxygen Flow Rate 0 02/06/19 17:23 Pain Level 7 02/06/19 17:23
--- NOTE | 2019-02-15 21:09 | ED.GENADUL_ITS ---
Discharge Plan Discharge Details Chief Complaint: DentalOral Primary Care Provider: Nazario Hoyos ED Provider: Tasneem Medley Home Meds and New Rx's Prescriptions: No Action methadone 10 MG/ML concentrate 90 mg PO DAILY Qty: 70 RF: 0 Multi For Her 18 mg iron-600 mcg-40 mcg Capsule 1 tab-cap PO QAM RF: 0 clindamycin HCl 300 mg Capsule 300 mg PO Q6H RF: 0 Discharge Data Discharge Date/Time-TO BE ENTERED AT DEPARTURE: 02/06/19 20:00 Medical Decision Making Clinical Impression: facial swelling Disposition: discharged HPI General Mode of arrival: ambulatory . Date/Time Provider Initiated Documentation: 02/06/19 17:28 . Limitations to Documentation: no limitations . Information obtained by: patient, RN notes reviewed and old records reviewed . Related Data Home Medications Medication Instructions Recorded Confirmed methadone 90 mg PO DAILY #70 mg 07/23/16 02/07/19 Multi For Her 1 tab-cap PO QAM 01/31/19 02/07/19 clindamycin HCl 300 mg PO Q6H 02/07/19 02/07/19 Allergies Allergy/AdvReac Type Severity Reaction Status Date / Time No Known Allergies Allergy Unverified 02/07/19 14:21 General Stated Complaint: DentalOral JAISON: 3 PFSH Medical History Scoliosis (Chronic) Biliary colic (Acute 01/15/15) Anxiety (Chronic) Alcohol abuse Drug abuse (10/20/15) Hepatitis C infection Infected dental carries (10/20/15) Pancreatitis Tobacco use Social History Smoking/Tobacco Use Status: Current every day Tobacco Type: cigarettes Alcohol Intake: current Alcohol Intake frequency: holidays/special occasions only Drug use: Daily Substance use type: marijuana Nannette/Cheondoism: Jain Do you feel safe at home: Yes Do you feel safe in your relationship?: Yes Course Vital Signs Temperature 36.5 C 02/06/19 17:23 Pulse 78 02/06/19 17:23 Respiratory Rate 16 02/06/19 17:23 Blood Pressure 154/85 H 02/06/19 17:23 Pulse Oximetry 99 02/06/19 17:23 Temperature 36.5 C 05/13/19 17:23 Temperature Source Skin 02/06/19 17:23 Pulse 78 02/06/19 17:23 Respiratory Rate 16 02/06/19 17:23 Blood Pressure 154/85 H 02/06/19 17:23 Blood Pressure Position Sitting 02/06/19 17:23 Pulse Oximetry 99 02/06/19 17:23 Oxygen Delivery Method Room Air 02/06/19 17:23 Oxygen Flow Rate 0 02/06/19 17:23 Pain Level 7 02/06/19 17:23
== END 2019-02-06 20:00 ==
PROVIDERS: Emergency Provider Student in an Organized Health Care Education/Training Program; PCP Family Medicine
DX: R22.1 Localized swelling, mass and lump, neck (principal); Y84.8 Other medical procedures as the cause of abnormal reaction of the patient, or of later complication, without mention of misadventure at the time of the procedure; F11.21 Opioid dependence, in remission; F41.9 Anxiety disorder, unspecified
CPT/HCPCS: 99281

== ENCOUNTER 2019-02-07 14:08 | Emergency (ER) | payer MEDICAID, SELFPAY ==
[2019-02-07 14:17] VITALS: BP 122/78; PULSE 88; RESP 15; TEMP 36.7; O2SAT 97
--- NOTE | 2019-02-07 15:30 | ED.GENADUL_ITS ---
Discharge Plan Disposition Patient Disposition: HOME Condition: Stable Discharge Details Chief Complaint: DentalOral Clinical Impression: Abscess, dental, Anxiety about health Primary Care Provider: Nazario Hoyos ED Provider: Mohit Barahona Home Meds and New Rx's Prescriptions: Continued methadone 10 MG/ML concentrate 90 mg PO DAILY Qty: 70 RF: 0 Multi For Her 18 mg iron-600 mcg-40 mcg Capsule 1 tab-cap PO QAM RF: 0 clindamycin HCl 300 mg Capsule 300 mg PO Q6H RF: 0 Discharge Instructions Instructions: Dental Abscess (ED) Additional Instructions: Continue to take your clindamycin along with your Tylenol and Motrin as needed for pain. Return immediately to the emergency department if you have any difficulty swallowing, breathing, or any severe worsening of facial swelling, fever. Otherwise follow-up with your dentist as needed for more definitive care of your dental infection. Referrals: Nazario Hoyos [Primary Care Provider] - (As needed for reassessment) Discharge Data Discharge Date/Time-TO BE ENTERED AT DEPARTURE: 02/07/19 15:34 Medical Decision Making Patient presenting to the emergency department for reassessment of dental infection. Patient states that dental infection occurred approximately 5 days ago which I saw her on that day and there were no abnormalities noted. Patient states within 24 hours of my visit she started the penicillin due to noting some facial swelling. Over the weekend then she went to [facility] due to no improvement of symptoms and was placed upon clindamycin. This also was not fully resolving her symptoms so she saw her dental provider yesterday which drained a dental abscess. Patient attempted to check into the emergency department yesterday evening but left prior to being evaluated due to wait time. Patient is presenting today stating that her facial swelling has improved, she is not having any difficulty breathing or swallowing, and states overall improvement of symptoms since the drainage. She does state that she is highly anxious and has anxiety problems and because it is not fully resolved was concerned. Physical exam shows mild swelling and erythema to the base of the gumline corresponding to tooth #20 and 21. There is also some palpable swelling externally also noted in this area. Otherwise there is no lymphadenopathy, no swelling of the tongue, normal appearance to oropharynx, normal vital signs of patient afebrile no signs of sepsis or toxicity, patient does appear anxious but in no acute signs of distress. There is no signs of Jeff's angina, retropharyngeal or peritonsillar abscess, no life-threatening infection or sepsis is noted. Given that patient states that overall her symptoms are improving and is only 24 hours out from I&D I feel that we should continue the clindamycin as prescribed. Close return precautions were discussed with her otherwise I do not feel that any interventions are needed. Patient was offered ketorolac IM injection and/or dental block for her pain control which she refused both of these at this time. She stated she would continue to take [id number] pain medication. After discussion of diagnosis and plan of care patient has no further needs, questions, or concerns and states clear understanding to return to the emergency department for any worsening symptoms. HPI General Mode of arrival: ambulatory . Date/Time Provider Initiated Documentation: 02/07/19 14:29 . Limitations to Documentation: no limitations . Information obtained by: patient . History of Present Illness 28 year old F presents to the emergency department with the chief complaint of Dental pain, described as moderate and similar to prior episodes, with intensity rated at 8. Quality is described as aching and sharp, and is localized to the mouth. Patient started experiencing this day(s) (5) and it has been constant. No relieving factors improve symptom(s), Patient notes no other symptoms.. Patient did receive the following treatments prior to arrival, NSAID Related Data Home Medications Medication Instructions Recorded Confirmed methadone 90 mg PO DAILY #70 mg 07/23/16 02/07/19 Multi For Her 1 tab-cap PO QAM 01/31/19 02/07/19 clindamycin HCl 300 mg PO Q6H 02/07/19 02/07/19 Allergies Allergy/AdvReac Type Severity Reaction Status Date / Time No Known Allergies Allergy Unverified 02/07/19 14:21 General Stated Complaint: DentalOral JAISON: 3 Review of Systems Constitutional Denies chills and Denies fever(s) ENT Reports as per HPI, Denies change in voice, Reports dental pain, Denies dysphagia, Denies throat swelling and Denies tongue swelling Cardiovascular Denies chest pain and Denies dyspnea Respiratory Denies dyspnea, Denies stridor and Denies wheezing Gastrointestinal Denies abdominal pain, Denies dysphagia, Denies nausea and Denies vomiting Integumentary/Breasts Denies rash Allergic/Immunologic Denies throat swelling, Denies tongue swelling and Denies wheezing [facility] Medical History Scoliosis (Chronic) Biliary colic (Acute 01/15/15) Anxiety (Chronic) Alcohol abuse Drug abuse (10/20/15) Hepatitis C infection Infected dental carries (10/20/15) Pancreatitis Tobacco use Surgical History H/O surgical procedure (Chronic) section (~2007) Cholecystectomy (01/17/15) Family History Mother Substance abuse Alcohol abuse Essential hypertension Mental disorder Father Mental disorder Sister Mental disorder Social History Smoking/Tobacco Use Status: Current every day Tobacco Type: cigarettes Alcohol Intake: current Alcohol Intake frequency: holidays/special occasions only Drug use: Daily Substance use type: marijuana Nannette/Confucianist: Cheondoism Do you feel safe at home: Yes Do you feel safe in your relationship?: Yes Exam Const General: cooperative Orientation: alert, awake and oriented x3 Limitations: mental status not altered HENMT Head: normal to inspection, normocephalic and atraumatic Ears: hearing grossly normal bilaterally, normal mastoids bilaterally and no periauricular adenopathy General nose exam: external nose normal Mouth: oropharynx normal, no drooling, no muffled voice, normal tongue and no t rismus Teeth and gingiva: caries, poor dentition and other (edema /erythema surrounding base of 21,20) Throat: posterior oropharynx normal, tonsils normal and uvula midline Eyes General: appearance normal, both eyes and all related structures Pupils: PERRL Neck Neck: normal visual inspection, full ROM, no lymphadenopathy, no meningeal signs, trachea midline, supple, no anterior neck swelling and no midline deformity Resp Effort & Inspection: normal respiratory effort and able to speak in complete sentences Course Vital Signs Temperature 36.7 C 02/07/19 14:17 Pulse 88 02/07/19 14:17 Respiratory Rate 15 02/07/19 14:17 Blood Pressure 122/78 02/07/19 14:17 Pulse Oximetry 97 02/07/19 14:17 Temperature 36.7 C 02/07/19 14:17 Temperature Source Temporal Artery Scan 02/07/19 14:17 Pulse 88 02/07/19 14:17 Respiratory Rate 15 02/07/19 14:17 Respiratory Effort Non-Labored 02/07/19 14:19 Blood Pressure 122/78 02/07/19 14:17 Blood Pressure Position Sitting 02/07/19 14:17 Pulse Oximetry 97 02/07/19 14:17 Oxygen Delivery Method Room Air 02/07/19 14:17 Oxygen Flow Rate 0 02/07/19 14:17 Pain Level 7 02/07/19 14:17
[2019-02-07 15:33] VITALS: BP 122/78; PULSE 88; RESP 15; TEMP 36.7; O2SAT 97
== END 2019-02-07 15:34 | disposition home or self-care (01) ==
PROVIDERS: Emergency Provider Nurse Practitioner Family; PCP Family Medicine
DX: K04.7 Periapical abscess without sinus (principal); F41.9 Anxiety disorder, unspecified
CPT/HCPCS: 99282

== ENCOUNTER 2019-03-02 14:13 | Emergency (ER) | payer MEDICAID, SELFPAY ==
[2019-03-02] VITALS (26 sets, daily range): BP systolic 97–141; BP diastolic 61–89; PULSE 71–104; RESP 11–20; TEMP 36.6; O2SAT 92–98
[2019-03-02] MEDS: LORazepam 0.5 MG TAB PO (15:09)
[2019-03-02 15:46] LABS: Abs Immature Grans 0.01 k/cumm (0.0-0.09); Absolute Basophil Count 0.01 k/cumm (0.0-0.2); Absolute Eosinophil Count 0.06 k/cumm (0.0-0.7); Absolute Lymphocyte Count 2.43 k/cumm (1.2-3.4); Absolute Monocyte Count 0.48 k/cumm (0.11-0.7); Absolute Neutrophil Count 3.46 k/cumm (1.2-6.7); Basophils % 0.2; Eosinophils % 0.9; HCT 39.9 % (36.0-46.0); HGB 13.8 g/dL (12.0-15.5); Immature Grans % 0.2; Lymphocytes % 37.7; Mean Corp. HGB Concentration 34.6 g/dL (32.0-36.0); Mean Corpuscular Hemoglobin 29.7 pg (27.0-33.0); Mean Corpuscular Volume 85.8 fL (80-95); Mean Platelet Volume 8.4 fL (8.0-11.0); Monocytes % 7.4; Neutrophils % 53.6; Platelet Count 286 x1000/uL (130-400); RBC 4.65 m/cumm (4.00-5.20); RBC Distribution Width 12.5 % (11.7-14.6); White Blood Cell Count 6.45 k/cumm (4.4-10.8)
[2019-03-02 16:08] LABS: ALT 95 U/L (12-78); AST 44 U/L (15-37); Albumin 3.5 g/dL (3.4-5.0); Alkaline Phosphatase 69 U/L (46-116); BUN 10 mg/dL (7-18); Bilirubin, Total 0.3 mg/dL (0.2-1.0); CREATININE 0.86 mg/dL (0.55-1.02); Calcium 8.7 mg/dL (8.5-10.1); Chloride 102 mmol/L (98-107); Glucose 110 mg/dL (70-100); Potassium 3.5 mmol/L (3.5-5.1); Sodium 139 mmol/L (136-145); Total Protein 7.9 g/dL (6.4-8.2)
[2019-03-02 16:11] LABS: Troponin I < 0.02 ng/mL (0.00-0.06)
[2019-03-02 16:24] LABS: D-Dimer 366 ng/mlFEU (<500)
--- NOTE | 2019-03-02 17:01 | ED.GENADUL_ITS ---
Discharge Plan Disposition Patient Disposition: HOME Discharge Details Chief Complaint: Chest Pain Clinical Impression: Chest pain, Anxiety Primary Care Provider: Nazario Hoyos ED Provider: Fadi Medley Home Meds and New Rx's Prescriptions: Continued methadone 10 MG/ML concentrate 90 mg PO DAILY Qty: 70 RF: 0 Multi For Her 18 mg iron-600 mcg-40 mcg Capsule 1 tab-cap PO QAM RF: 0 Discharge Instructions Instructions: Chest Pain (ED), Anxiety (ED) Additional Instructions: Please contact your primary care physician to arrange follow-up. Please call tomorrow. Additional diagnostics and treatment may be necessary if symptoms persist or worsen. Return to the ER for any worsening or new concerning symptoms. Referrals: Nazario Hoyos [Primary Care Provider] - Medical Decision Making 28-year-old female with history of anxiety disorder and prior anxiety attacks causing chest discomfort, here with chest discomfort since last night that has been intermittent as well as anxiety. History and exam consistent with likely acute exacerbation of anxiety disorder. Ativan 0.5 mg given for anxiety at patient's request. Patient is low risk for ACS. ECG nondiagnostic. Troponin was sent per protocol and negative. Patient has clear bilateral breath sounds throughout entire lung correia. Considered pulmonary embolism: pt is low risk by Wells criteria. D-dimer was checked and negative. Patient was reassessed and noted to have significant improvement with resolution of anxiety and no chest discomfort. I reviewed diagnostic results with the patient. We discussed the fact that her LFTs are slightly elevated. She notes that she has hepatitis C. We discussed the absolute need for her to seek treatment for hepatitis C and she is agreeable to this. She will speak with her primary care physician for referral. Disposition decision was made weighing the risks and benefits of hospitalization versus outpatient treatment, the risk for further decompensation, and the patient's wishes. The patient was stable and requested discharge. Prior to discharge, my usual and customary return precautions were reviewed with the patient - this included follow-up instructions and reason to return to the emergency department if condition worsens, does not improve as expected, or other new concerns arise. Lab Data Lab results reviewed: Yes I reviewed the patient's lab results. Lab results narrative: Laboratory Tests Range/Units 03/02/19 03/02/19 03/02/19 15:30 15:30 15:30 WBC (4.4-10.8) k/cumm 6.45 RBC (4.00-5.20) m/cumm 4.65 Hgb (12.0-15.5) g/dL 13.8 Hct (36.0-46.0) % 39.9 MCV (80-95) fL 85.8 MCH (27.0-33.0) pg 29.7 MCHC (32.0-36.0) g/dL 34.6 RDW (11.7-14.6) % 12.5 Plt Count (130-400) x1000/uL 286 MPV (8.0-11.0) fL 8.4 Immature Gran % 0.2 Neutrophils % 53.6 Lymphocytes % 37.7 Monocytes % 7.4 Eosinophils % 0.9 Basophils % 0.2 Absolute Neutrophils (1.2-6.7) k/cumm 3.46 Absolute Lymphocytes (1.2-3.4) k/cumm 2.43 Absolute Monocytes (0.11-0.7) k/cumm 0.48 Absolute Eosinophils (0.0-0.7) k/cumm 0.06 Absolute Basophils (0.0-0.2) k/cumm 0.01 D-Dimer (<500) ng/mlFEU 366 Sodium (136-145) mmol/L 139 Potassium (3.5-5.1) mmol/L 3.5 Chloride (98-107) mmol/L 102 Carbon Dioxide (21.0-32.0) mmol/L 28.0 Anion Gap (3-11) mmol/L 9.0 BUN (7-18) mg/dL 10 Creatinine (0.55-1.02) mg/dL 0.86 Estimated GFR/1.73 m2 (mL/min/1.73m2) >= 60.00 Glucose (70-100) mg/dL 110 H Calcium (8.5-10.1) mg/dL 8.7 Total Bilirubin (0.2-1.0) mg/dL 0.3 AST (15-37) U/L 44 H ALT (12-78) U/L 95 H Alkaline Phosphatase (46-116) U/L 69 Troponin I (0.00-0.06) ng/mL < 0.02 Total Protein (6.4-8.2) g/dL 7.9 Albumin (3.4-5.0) g/dL 3.5 ECG Data Attestation: I personally reviewed and interpreted this ECG (s) as follows: (Normal sinus rhythm 94 bpm, normal axis, no STEMI, nondiagnostic) HPI General Mode of arrival: ambulatory . Date/Time Provider Initiated Documentation: 03/02/19 14:47 . Limitations to Documentation: no limitations . Information obtained by: patient . HPI Narrative: 28-year-old female with history of anxiety, presents with chief complaint of chest discomfort. Patient notes that she has had chest discomfort since last night. She did episode last night that lasted a few hours and resolved. She did another episode this morning that lasted a couple hours and is now resolved. Chest discomfort is described as sharp and centrally located. She is also very much concerned about a lump on her proximal clavicle. Patient notes that she has had chest pain with anxiety attacks in the past similar to this current presentation. She has had significant medical work-ups with prior anxiety attacks that have been unremarkable. Patient is currently pain-free. She notes specifically that since she has been in the emerge department she is feeling better. She is requesting a anxiolytic. Patient denies associated shortness of breath. No leg swelling. No calf pain. No recent long distance travel or immobility. Related Data Home Medications Medication Instructions Recorded Confirmed methadone 90 mg PO DAILY #70 mg 07/23/16 03/02/19 Multi For Her 1 tab-cap PO QAM 01/31/19 03/02/19 Allergies Allergy/AdvReac Type Severity Reaction Status Date / Time No Known Allergies Allergy Unverified 03/02/19 15:05 General Stated Complaint: Chest Pain JAISON: 2 Review of Systems Review of Systems All systems reviewed & are unremarkable except as noted in HPI and below Constitutional Denies fever(s) Cardiovascular Reports chest pain and Denies dyspnea Respiratory Denies cough and Denies dyspnea Psychiatric Reports anxiety [facility] Medical History Scoliosis (Chronic) Biliary colic (Acute 01/15/15) Anxiety (Chronic) Alcohol abuse Drug abuse (10/20/15) Hepatitis C infection Infected dental carries (10/20/15) Pancreatitis Tobacco use Surgical History H/O surgical procedure (Chronic) section (~2007) Cholecystectomy (01/17/15) Family History Mother Substance abuse Alcohol abuse Essential hypertension Mental disorder Father Mental disorder Sister Mental disorder Social History Smoking/Tobacco Use Status: Current every day Tobacco Type: cigarettes Alcohol Intake: current Alcohol Intake frequency: holidays/special occasions o nly Drug use: Daily Substance use type: marijuana Nannette/Congregation: Alevism Do you feel safe at home: Yes Do you feel safe in your relationship?: Yes Exam Const General: cooperative and no acute distress HENMT Head: normocephalic and atraumatic Mouth: moist mucous membranes Eyes Conjunctivae: normal conjunctivae Sclera: normal sclerae EOM: EOM intact bilaterally Neck Neck: trachea midline and supple Chest Chest: other (Small bony protuberance at sternoclavicular junction on the right) Resp Auscultation: clear to auscultation bilaterally, no rales, no rhonchi and no wheezes Cardio Jugular venous pressure: no JVD Rate: regular rate and not tachycardic Rhythm: regular rhythm GI Palpation: soft, not firm, no guarding, no masses, not rigid and nontender Skin General skin exam: no rashes or lesions noted Neuro General: alert, awake, oriented x3 and tone normal Extrem General: no calf tenderness bilaterally and no edema Psych Appearance: grossly normal Mental Status: mental status grossly normal Speech and Movement: speech and movement normal Affect: anxious affect Course Vital Signs Temperature 36.6 C 03/02/19 14:24 Pulse 72 03/02/19 14:24 Respiratory Rate 16 03/02/19 14:24 Blood Pressure 141/89 H 03/02/19 14:24 Pulse Oximetry 98 03/02/19 14:24 Temperature 36.6 C 03/02/19 14:24 Temperature Source Temporal Artery Scan 03/02/19 14:24 Pulse 72 03/02/19 14:24 Respiratory Rate 16 03/02/19 14:30 Respiratory Effort Non-Labored 03/02/19 14:30 Respiratory Depth Normal 03/02/19 14:30 Respiratory Pattern Normal 03/02/19 14:30 Blood Pressure 141/89 H 03/02/19 14:24 Blood Pressure Position Sitting 03/02/19 14:24 Pulse Oximetry 98 03/02/19 14:24 Oxygen Delivery Method Room Air 03/02/19 14:24 Oxygen Flow Rate 0 03/02/19 14:24 Pain Level 6 03/02/19 14:24
== END 2019-03-02 17:19 | disposition home or self-care (01) ==
PROVIDERS: Emergency Provider Student in an Organized Health Care Education/Training Program; PCP Family Medicine
DX: R07.9 Chest pain, unspecified (principal); F41.9 Anxiety disorder, unspecified
CPT/HCPCS: 36415; 80053; 93005; 99284; 84484; 85025; 85379; 93010

== ENCOUNTER 2019-04-12 12:31 | Emergency (ER) | payer MEDICAID, SELFPAY ==
[2019-04-12] VITALS (16 sets, daily range): BP systolic 105–122; BP diastolic 71–83; PULSE 70–91; RESP 9–17; TEMP 36.7; O2SAT 95–99
--- NOTE | 2019-04-12 12:47 | W.ED.GENAD ---
Discharge Plan Disposition Patient Disposition: HOME Condition: Stable Discharge Details Chief Complaint: Chest Pain Clinical Impression: Gastritis Primary Care Provider: Nazario Hoyos ED Provider: Mohit Barahona Home Meds and New Rx's Prescriptions: New ranitidine HCl [Zantac] 150 mg tablet 150 mg PO BID Qty: 30 RF: 0 Continued methadone 10 MG/ML concentrate 90 mg PO DAILY Qty: 70 RF: 0 Discharge Instructions Instructions: Gastritis (ED) Additional Instructions: Please take medication as prescribed and reduce caffeine, nicotine, coffee, and spicy foods. Please follow-up with your primary care provider for reassessment of your symptoms and possible further testing as needed. Referrals: Nazario Hoyos [Primary Care Provider] - 1 week (Call the office in the next couple days for arrangement of follow-up appointment and reassessment) Discharge Data Discharge Date/Time-TO BE ENTERED AT DEPARTURE: 04/12/19 16:09 Medical Decision Making Patient presenting to the emergency department for chief complaint of chest pain. Patient states that she has had intermittent chest pain for the past 2 weeks. She does state that it seems to worsen when she lies flat. She does state some associated epic gastric pain along with heartburn sensations. She has tried Tums, Rolaids, and drinking milk which has not helped. Patient denies any trauma. She does state some shortness of breath and dyspnea and has been waking up in the middle the night gasping for air occasionally. She has been sleeping on some pillows which seems to have helped with some of the symptoms. Physical exam shows normal cardiac exam, clear lung sounds and unremarkable respiratory exam, patient does have epigastric tenderness that is recent reproducible pain. Otherwise no other specific findings noted. Plan to do labs and x-ray imaging per protocol. High concern for gastritis or GERD causing patient's symptoms but plan to check troponin for rule out of ACS which I feel is low probability. Review of vital signs shows unremarkable vital signs and given patient's history low Wells score but plan to check d-dimer. EKG reviewed with attending physician and shows sinus rhythm, rate of 84, no STEMI, otherwise nondiagnostic. Review of labs show unremarkable CBC, negative initial troponin, negative BNP, CMP shows mildly elevated AST and ALT which I attribute to patient's history of hep C. D-dimer was slightly elevated at 513 so given patient's history of dyspnea when lying flat, and chest pain I do feel that CT PE protocol is warranted. Patient stated some anxiety about this test and was given Benadryl before the exam. Review of CT imaging and speak with radiologist shows no PE and no other acute findings noted. Patient reassessed and stated improvement of symptoms after GI cocktail. Concern for gastritis and possible peptic ulcer disease is present. Plan to place patient on ranitidine 150 twice daily and have patient follow-up with primary care for consideration of EGD,or PPI if needed. Patient may also need outpatient sleep study given that she wakes up gasping for air at night as this may be sleep apnea. Return precautions were discussed. After discussion of diagnosis and plan of care patient has no further needs, questions, or concerns and states clear understanding to return to the emergency department for any worsening symptoms. HPI General Mode of arrival: ambulatory. Date/Time Provider Initiated Documentation: 04/12/19 12:36. Limitations to Documentation: no limitations. Information obtained by: patient and RN notes reviewed. History of Present Illness 28 year old F presents to the emergency department with the chief complaint of Chest pain, described as moderate, with intensity rated at 7. Quality is described as aching and sharp, and is localized to the chest. Patient started experiencing this week(s) (2) and it has been intermittent. No relieving factors improve symptom(s), Other factors that worsen symptoms (Lying flat) . Patient did receive the following treatments prior to arrival, none Related Data Home Medications Medication Instructions Recorded Confirmed methadone 90 mg PO DAILY #70 mg 07/23/16 04/12/19 ranitidine HCl [Zantac] 150 mg PO BID #30 tab 04/12/19 Previous Rx's Medication Instructions Recorded ranitidine HCl [Zantac] 150 mg PO BID #30 tab 04/12/19 Allergies Allergy/AdvReac Type Severity Reaction Status Date / Time No Known Allergies Allergy Unverified 04/12/19 12:45 General Stated Complaint: Chest Pain JAISON: 3 Review of Systems Constitutional Denies chills, Denies fever(s) and Denies malaise Cardiovascular Reports as per HPI, Reports chest pain, Denies chest pain with activity, Denies diaphoresis, Denies syncope, Denies irregular heart rhythm, Denies palpitations and Reports dyspnea Respiratory Denies cough, Denies hemoptysis and Reports dyspnea Gastrointestinal Denies abdominal pain, Reports dyspepsia, Reports heartburn, Denies nausea and Denies vomiting Neurologic Denies syncope Psychiatric Reports anxiety Endocrine Denies palpitations PFSH Medical History Alcohol abuse Anxiety (Chronic) Biliary colic (Acute 01/15/15) Drug abuse (10/20/15) Hepatitis C infection Infected dental carries (10/20/15) Pancreatitis Scoliosis (Chronic) Tobacco use Surgical History section (~2007) Cholecystectomy (01/17/15) H/O surgical procedure (Chronic) Family History Mother Substance abuse Alcohol abuse Essential hypertension Mental disorder Father Mental disorder Sister Mental disorder Social History Smoking/Tobacco Use Status: Current every day Tobacco Type: cigarettes Alcohol Intake: current Alcohol Intake frequency: holidays/special occasions only Drug use: Daily Substance use type: marijuana Nannette/Pentecostalism: Jainism Do you feel safe at home: Yes Do you feel safe in your relationship?: Yes Exam Const General: cooperative, healthy appearing, comfortable, no acute distress, not diaphoretic and not ill appearing Nutritional Appearance: average body habitus Orientation: alert, awake and oriented x3 Limitations: mental status not altered Neck Neck: normal visual inspection, full ROM, trachea midline, supple and no anterior neck swelling Thyroid: thyroid normal Carotids: normal carotid upstroke and no bruits Chest Chest: normal inspection of the chest Resp Effort & Inspection: normal respiratory effort and able to speak in complete sentences Auscultation: clear to auscultation bilaterally Cardio Jugular venous pressure: no JVD Palpation: normal PMI Rate: regular rate Rhythm: regular rhythm Heart Sounds: S1 normal, S2 normal, no click, no gallops, no murmurs and no rubs Bruits: no abdominal aortic bruits and no carotid bruits Pulses: radial pulses present bilaterally 2+ GI Inspection: normal to inspection Palpation: soft, no aortic enlargement, not firm, no guarding, no pulsatile masses, not rigid and tender in the epigastrum Auscultation: normal bowel sounds Skin General skin exam: no rashes or lesions noted Neuro General: alert, awake, oriented x3, tone normal and moves all extremities Course Vital Signs Temperature 36.7 C 04/12/19 12:40 Pulse 91 H 04/12/19 12:40 Respiratory Rate 14 04/12/19 12:40 Blood Pressure 122/82 04/12/19 12:40 Pulse Oximetry 98 04/12/19 12:40 Temperature 36.7 C 04/12/19 12:40 Temperature Source Skin 04/12/19 12:40 Pulse 91 H 04/12/19 12:40 Respiratory Rate 14 04/12/19 12:40 Blood Pressure 122/82 04/12/19 12:40 Blood Pressure Position Supine 04/12/19 12:40 Pulse Oximetry 98 04/12/19 12:40 Oxygen Delivery Method Room Air 04/12/19 12:40 Oxygen Flow Rate 0 04/12/19 12:40 Pain Level 0 04/12/19 12:40
--- NOTE | 2019-04-12 12:58 | DI.RAD_ITS ---
SYMPTOMS/DIAGNOSIS: CHEST PAIN PA AND LATERAL CHEST: The heart is normal in size. The lungs are clear. The mediastinal structures and pleura appear intact. CONCLUSION: Normal chest.
[2019-04-12 13:36] LABS: Bilirubin Negative (Negative); Blood Negative (Negative); Clarity Clear (Clear); Glucose Negative (Negative); Ketones Negative (Negative); Leukocyte Esterase Negative (Negative); Nitrite Negative (Negative); Urobilinogen 0.2 EU/dL (Up TO 0.2)
[2019-04-12 13:38] LABS: Abs Immature Grans 0.02 k/cumm (0.0-0.09); Absolute Basophil Count 0.02 k/cumm (0.0-0.2); Absolute Eosinophil Count 0.08 k/cumm (0.0-0.7); Absolute Lymphocyte Count 1.84 k/cumm (1.2-3.4); Absolute Monocyte Count 0.52 k/cumm (0.11-0.7); Basophils % 0.3; Eosinophils % 1.2; HCT 40.5 % (36.0-46.0); HGB 14.1 g/dL (12.0-15.5); Immature Grans % 0.3; Lymphocytes % 28.4; Mean Corp. HGB Concentration 34.8 g/dL (32.0-36.0); Mean Corpuscular Hemoglobin 29.5 pg (27.0-33.0); Mean Corpuscular Volume 84.7 fL (80-95); Mean Platelet Volume 8.4 fL (8.0-11.0); Neutrophils % 61.8; Platelet Count 285 x1000/uL (130-400); RBC 4.78 m/cumm (4.00-5.20); RBC Distribution Width 12.2 % (11.7-14.6); White Blood Cell Count 6.48 k/cumm (4.4-10.8)
[2019-04-12] MEDS: Mylanta Suspension 30 ML CUP (13:59)
[2019-04-12 14:04] LABS: ALT 85 U/L (12-78); AST 46 U/L (15-37); Albumin 3.5 g/dL (3.4-5.0); Alkaline Phosphatase 57 U/L (46-116); Anion Gap 8.5 mmol/L (3-11); BUN 14 mg/dL (7-18); Bilirubin, Total 0.4 mg/dL (0.2-1.0); CO2 26.5 mmol/L (21.0-32.0); CREATININE 0.69 mg/dL (0.55-1.02); Calcium 8.6 mg/dL (8.5-10.1); Chloride 103 mmol/L (98-107); Glucose 94 mg/dL (70-100); Magnesium 1.8 mg/dL (1.8-2.4); NT-proBNP 46 pg/mL; Potassium 3.9 mmol/L (3.5-5.1); Sodium 138 mmol/L (136-145); Total Protein 7.9 g/dL (6.4-8.2)
[2019-04-12 14:09] LABS: D-Dimer 513 ng/mlFEU (<500); PTT Activated 21.9 sec (21.0-31.4); Prothrombin Time 9.6 sec (9.3-11.0)
--- NOTE | 2019-04-12 14:12 | DI.CT_ITS ---
SYMPTOMS/DIAGNOSIS: CHEST PAIN, SHORTNESS OF BREATH, ELEVATED D DIMER PE CHEST CT: CT angiography was performed with multi slice acquisition and multi planar and 3D reconstruction. The study was conducted according to the usual protocol with an intravenous administration of 100 cc's of Omnipaque 350. There is no evidence of pulmonary embolic disease. Regions of dependent atelectasis are demonstrated. There is no infiltrate or pleural effusion. The heart is not enlarged. There is no evidence of RV strain. There is no evidence of an aortic aneurysm. SUMMARY: No evidence of pulmonary embolic disease.
[2019-04-12 14:36] LABS: Troponin I < 0.05 ng/mL (0.00-0.06)
[2019-04-12] MEDS: diphenhydrAMINE 50 MG/ML VIAL 25 MG IVP (15:00)
[2019-04-12] MEDS: Omnipaque 350 MG/ML 100 ML BTL IJ (15:05)
--- NOTE | 2019-04-13 13:59 | NUR.NOTE ---
Nursing Note: Faxed to [facility] the visit information from 04-13-2019. For referral for follow up care. Chary Odom.
== END 2019-04-12 16:09 | disposition home or self-care (01) ==
PROVIDERS: Emergency Provider Nurse Practitioner Family; PCP Family Medicine
DX: K29.00 Acute gastritis without bleeding (principal); R79.89 Other specified abnormal findings of blood chemistry
CPT/HCPCS: 36415; 71275; 80053; 93005; 96374; 99285; 71046; 81003; 83735; 83880; 84484; 85025; 85379; 85610; 85730; 93010; J1200; J3490

== ENCOUNTER 2019-06-08 10:08 | Emergency (ER) | payer MEDICAID, SELFPAY ==
[2019-06-08 10:18] VITALS: BP 134/90; PULSE 85; RESP 16; TEMP 36.3; O2SAT 97
[2019-06-08 10:24] LABS: Bilirubin Negative (Negative); Blood Negative (Negative); Clarity Sl Cloudy (Clear); Glucose Negative (Negative); Ketones Negative (Negative); Leukocyte Esterase Trace (Negative); Nitrite Positive (Negative); Specific Gravity 1.025 (1.005-1.025); Urobilinogen 0.2 EU/dL (Up TO 0.2); pH 5.5 (5-8)
[2019-06-08 10:35] LABS: Epithelial Cells Moderate HPF (Negative); WBC 20-50 HPF (0-5)
[2019-06-08 10:36] LABS: Bacteria Many HPF (Negative); C & S Indicated? No/Sq. Contamination
--- NOTE | 2019-06-08 11:15 | W.ED.GENAD ---
Discharge Plan Disposition Patient Disposition: HOME Condition: Good Discharge Details Chief Complaint: Urinary Clinical Impression: UTI (urinary tract infection), Bronchitis Primary Care Provider: Nazario Hoyos ED Provider: Deja Fox Home Meds and New Rx's Prescriptions: New cephalexin [Keflex] 500 mg capsule 500 mg PO QID Qty: 28 RF: 0 albuterol sulfate [Proventil HFA] 90 mcg/actuation HFA aerosol inhaler 2 puff IH Q6H PRN (Reason: wheezing) 7 Days Qty: 8 RF: 0 benzonatate [Tessalon Perles] 100 mg capsule 100 mg PO TID PRN (Reason: cough) Qty: 14 RF: 0 phenazopyridine [Pyridium] 200 mg tablet 200 mg PO TID Qty: 6 RF: 0 No Action methadone 10 MG/ML concentrate 90 mg PO DAILY Qty: 70 RF: 0 ranitidine HCl [Zantac] 150 mg tablet 150 mg PO BID Qty: 30 RF: 0 Discharge Instructions Instructions: Urinary Tract Infection in Women (ED), Acute Bronchitis (ED) Additional Instructions: Presents by mouth. Use antibiotic as prescribed. Use Pyridium as prescribed. This will stay in your urine reddish-orange color. Rest activities as tolerated. Use inhaler as needed for wheezing and cough every 6 hours. Use cough medication as prescribed. Follow-up with primary care doctor if not improving the next 2 to 3 days. Next and return for any worsening or concerns sooner if needed Medical Decision Making Patient presents with both urinary complaints and cough for the last few weeks. Urinalysis is remarkable for leukocyte esterase and nitrite. Will treat appropriately for UTI. Will treat chest for likely bronchitis. Patient has no difficulty breathing, vital signs are stable. Patient agrees with plan of care. If not improving the next 2 to 3 days will have reevaluation primary care doctor. Precautions provided for respiratory concern for which she should have immediate reevaluation. Patient denies any concern of diffuse abdominal pain. Nothing to indicate an intra-abdominal emergency at this time. HPI General Date/Time Provider Initiated Documentation: 06/08/19 10:18. HPI Narrative: Patient presents for complaints of urinary urgency, frequency and dysuria associated with mild lower abdominal discomfort for the last 2 weeks. Patient now complaining of mild back pain. Patient does report history of bladder surgery as well as multiple UTIs and this feels similar. Denies vaginal discharge or bleeding. Patient does report mild malaise. Patient is a second complaint of cough for the last 2 weeks associated with mild wheezing. Mild production and sputum to the cough. Patient reports originally had fevers 2 weeks ago then since resolved. Patient reports in the last week primarily cough with minimal production. Patient reports mild chest soreness. Mild headache and dizziness. Patient denies difficulty breathing or shortness of breath. No other concerns or complaints at this time. Denies nausea or vomiting or diarrhea. No bowel changes. Related Data Home Medications Medication Instructions Recorded Confirmed methadone 90 mg PO DAILY #70 mg 07/23/16 06/08/19 ranitidine HCl [Zantac] 150 mg PO BID #30 tab 04/12/19 06/08/19 albuterol sulfate [Proventil HFA] 2 puff IH Q6H PRN 7 Days #8 gm 06/08/19 benzonatate [Tessalon Perles] 100 mg PO TID PRN #14 cap 06/08/19 cephalexin [Keflex] 500 mg PO QID #28 cap 06/08/19 phenazopyridine [Pyridium] 200 mg PO TID #6 tab 06/08/19 Previous Rx's Medication Instructions Recorded ranitidine HCl [Zantac] 150 mg PO BID #30 tab 04/12/19 albuterol sulfate [Proventil HFA] 2 puff IH Q6H PRN 7 Days #8 gm 06/08/19 benzonatate [Tessalon Perles] 100 mg PO TID PRN #14 cap 06/08/19 cephalexin [Keflex] 500 mg PO QID #28 cap 06/08/19 phenazopyridine [Pyridium] 200 mg PO TID #6 tab 06/08/19 Allergies Allergy/AdvReac Type Severity Reaction Status Date / Time No Known Allergies Allergy Unverified 06/08/19 10:21 General Stated Complaint: Urinary JAISON: 4 Review of Systems Review of Systems Narrative: CONSTITUTIONAL: The patient denies fevers, chills. EYES: Denies vision changes, blurry vision, or eye pain. ENT: Denies hearing changes, tinnitus, vertigo, sore throat. CARDIAC: Denies chest pain, SOB. RESPIRATORY:cough present with sputum. Denies difficulty breathing. GASTROINTESTINAL: Mild lower abdominal pain. No changes in bowel, vomiting or nausea. GENITOURINARY: Admits to dysuria, and frequency of urination. MUSCULOSKELETAL: Denies Joint pain, gait changes. NEUROLOGIC: Denies headaches, Denies focal weakness. Denies numbness. INTEGUMENT: Denies rashes. PSYCHIATRIC: Denies behavior changes. Denies anxiety or depression. ENDOCRINOLOGY: Denies fatigue. PSYCHIATRY: Denies depression, agitation or anxiety [facility] Medical History Alcohol abuse Anxiety (Chronic) Biliary colic (Acute 01/15/15) Drug abuse (10/20/15) random UDS during + opiods and Methadone. Hepatitis C infection 11/2015 > 1 million copies 09/2016 254K copies. 11/2016 Nl LFTs Infected dental carries (10/20/15) Rx for Abx at time of ED visit. 12/11/16 repeat episode: R sided facial pain. Augmentin x10d. Pancreatitis 2014 admitted for gallstone pancreatitis. had rainage of a pseudocyst. underwent cholecystectomy 12/2014 Scoliosis (Chronic) Tobacco use Surgical History section (~2007) [facility] [place] @ 32w twin delivery. ? uterine scar. 10/30/15 RCD@ 37w. M. Cholecystectomy (01/17/15) laparoscopic cholecystitis and cholelithiasis H/O surgical procedure (Chronic) a. through vertical incision Family History Mother Substance abuse opiods Alcohol abuse Essential hypertension Mental disorder Depression and anxiety Father Mental disorder Depression and anxiety Sister Mental disorder depression and anxiety Social History Smoking/Tobacco Use Status: Current every day Tobacco Type: cigarettes Alcohol Intake: current Alcohol Intake frequency: holidays/special occasions only Drug use: Daily Substance use type: marijuana Nannette/Spiritism: Congregational Do you feel safe at home: Yes Do you feel safe in your relationship?: Yes Exam Narrative Exam Narrative: CONST: Healthy appearing patient, in no acute distress. Well hydrated. Alert and alert. HENMT: Head nomocephalic, normal to inspection. Atraumatic. Hearing grossly normal. EYES: General normal appearance. Alignment normal. Eyelids normal. Conjunctiva normal. NECK: Normal visual inspection. FROM. Trachea midline. No Midline tenderness. CHEST: Normal insepection of the chest. RESP: Normal respiratory effort. Speaking full sentences. No cough. Scattered wheezing. No retractions. CARDIO: No JVD. Abdomen; Patient with mild lower abdominal soreness., No distention or rebound. Mild right CVA tenderness. MUSCULOSKELETAL: Normal Gait. FROM of all extremities. SKIN: Normal. Dry. No rashes. NEURO: Alert and awake. Speech clear. PSYCH: Normal affect. Cooperative. Course Vital Signs Vital signs: Vital Signs Temperature 36.3 C L 06/08/19 10:18 Pulse 85 06/08/19 10:18 Respiratory Rate 16 06/08/19 10:18 Blood Pressure 134/90 06/08/19 10:18 Pulse Oximetry 97 06/08/19 10:18 Temperature 36.3 C L 06/08/19 10:18 Temperature Source Skin 06/08/19 10:18 Pulse 85 06/08/19 10:18 Respiratory Rate 16 06/08/19 10:18 Respiratory Effort Non-Labored 06/08/19 10:23 Blood Pressure 134/90 06/08/19 10:18 Blood Pressure Position Sitting 06/08/19 10:18 Pulse Oximetry 97 06/08/19 10:18 Oxygen Delivery Method Room Air 06/08/19 10:18 Oxygen Flow Rate 0 06/08/19 10:18 Pain Level 6 06/08/19 10:22 Lab/Test Results Lab/Test Results: 06/08/19 11:13 Urine - Clean Catch Urine Culture - Pending Laboratory Tests Range/Units 06/08/19 10:17 Urine Color (Yellow) Yellow Urine Clarity (Clear) Sl cloudy Urine pH (5-8) 5.5 Ur Specific [place] (1.005-1.025) 1.025 Urine Protein (Negative) mg/dL Negative Urine Ketones (Negative) mg/dL Negative Urine Blood (Negative) Negative Urine Nitrite (Negative) Positive H Urine Bilirubin (Negative) Negative Urine Urobilinogen (Up TO 0.2) EU/dL 0.2 Ur Leukocyte Esterase (Negative) Trace H Urine RBC Not Applicable Urine WBC (0-5) HPF 20-50 Ur Epithelial Cells (Negative) HPF Moderate Urine Crystals Not Applicable Urine Bacteria (Negative) HPF Many Urine Mucus Not Applicable Ur Culture Indicated? No/sq. contamination Urine Glucose (Negative) mg/dL Negative
[2019-06-08 11:29] VITALS: RESP 1
[2019-06-08] MEDS: Albuterol/Ipratropium 3 ML UPD VIAL UPD (11:29)
== END 2019-06-08 11:45 | disposition home or self-care (01) ==
PROVIDERS: Emergency Provider Physician Assistant; PCP Family Medicine
DX: N39.0 Urinary tract infection, site not specified (principal); J20.0 Acute bronchitis due to Mycoplasma pneumoniae
CPT/HCPCS: 36415; 87077; 94640; 99283; 81003; 81015; 87086; 87186; J7620

== ENCOUNTER 2019-09-04 14:34 | Emergency (ER) | payer MEDICAID, SELFPAY ==
[2019-09-04 14:39] VITALS: BP 143/84; PULSE 75; RESP 16; TEMP 36.2; O2SAT 96
--- NOTE | 2019-10-03 08:13 | W.ED.GENAD ---
Discharge Plan Disposition Patient Disposition: HOME Condition: Stable Discharge Details Chief Complaint: DentalOral Clinical Impression: Bronchitis, Pain, dental Primary Care Provider: Nazario Hoyos ED Provider: Provider,Temporary Home Meds and New Rx's Prescriptions: No Action methadone 10 MG/ML concentrate 90 mg PO DAILY Qty: 70 RF: 0 Discharge Instructions Instructions: Acute Bronchitis (ED), Toothache (ED) Additional Instructions: 1. Drink plenty of fluids. 2. Continue all medications as prescribed. 3. Acetaminophen 1000mg every 4 hours (up to 5 time a day) and/or ibuprofen 600mg every 6 hours as needed for fever or pain. 4. Clindamycin 300 mg 2 times a day for 7 days. 5. Prednisone 40 mg once a day for 5 days. Return to the Emergency Department (ED) if your condition worsens, does not improve as expected, or for ANY other concerns. Specifically, return if you have new or uncontrolled pain, worsening fever, difficulty breathing, vomiting, or are unable to drink fluids. Discharge Data Discharge Date/Time-TO BE ENTERED AT DEPARTURE: 09/04/19 15:03 Medical Decision Making 28-year-old woman presents with accelerating left lower jaw pain and swelling associated with dental caries. Has also had 2 weeks of URI symptoms with persistent cough. Exam significant for mild expiratory wheezing and swelling of left jaw soft tissue with no clinical evidence of abscess. Treated with oral prednisone and clindamycin. Discharged with plan for outpatient dental follow-up. Given usual customary return instructions prior to discharge. HPI 28-year-old woman with a past medical history which includes alcohol use, anxiety, hepatitis C, and dental caries. Presents with 2 weeks of URI symptoms and more recent progressive left lower jaw pain, swelling, and tenderness. Symptoms subjectively similar to previous episodes with Dr. Issa's which have responded to antibiotic management. Denies fever/chills, denies difficulty swallowing or handling her own secretions. Has no significant discharge from her lower jaw/gingival region. Denies neck pain. Has had mild dyspnea associate with her URI symptoms. General Date/Time Provider Initiated Documentation: 09/04/19 14:52. Related Data Home Medications Medication Instructions Recorded Confirmed methadone 90 mg PO DAILY #70 mg 07/23/16 09/04/19 Allergies Allergy/AdvReac Type Severity Reaction Status Date / Time No Known Allergies Allergy Unverified 09/04/19 14:42 General Stated Complaint: DentalOral JAISON: 4 Review of Systems All systems reviewed & are unremarkable except as noted in HPI and below PFSH Medical History Alcohol abuse Anxiety (Chronic) Biliary colic (Acute 01/15/15) Drug abuse (10/20/15) random UDS during + opiods and Methadone. Hepatitis C infection 11/2015 > 1 million copies 09/2016 254K copies. 11/2016 Nl LFTs Infected dental carries (10/20/15) Rx for Abx at time of ED visit. 12/11/16 repeat episode: R sided facial pain. Augmentin x10d. Pancreatitis 2014 admitted for gallstone pancreatitis. had rainage of a pseudocyst. underwent cholecystectomy 12/2014 Scoliosis (Chronic) Tobacco use Surgical History section (~2007) [facility] [place] @ 32w twin delivery. ? uterine scar. 10/30/15 RCD@ 37w. M. Cholecystectomy (01/17/15) laparoscopic cholecystitis and cholelithiasis H/O surgical procedure (Chronic) a. through vertical incision Family History Mother Substance abuse opiods Alcohol abuse Essential hypertension Mental disorder Depression and anxiety Father Mental disorder Depression and anxiety Sister Mental disorder depression and anxiety Social History Smoking/Tobacco Use Status: Current every day Tobacco Type: cigarettes Alcohol Intake: current Alcohol Intake frequency: holidays/special occasions only Drug use: Daily Substance use type: marijuana Nannette/Episcopal: Pentecostal Do you feel safe at home: Yes Do you feel safe in your relationship?: Yes Exam Narrative Exam Narrative: Nursing note and vital signs have been reviewed and noted. GENERAL: alert, active, no acute distress, well -hydrated, well-nourished HEENT: atraumatic/normocephalic, PERRLA, EOMI, conjunctiva clear, external ears/canals normal, nasal mucosa normal; generalized dental caries with right lower jaw soft tissue tendernes, swelling, and erythema with no fluctuance or palpable abscess appreciated. NECK: supple, full range of motion CARDIOVASCULAR: nl pulses, no edema PULMONARY: nl effort, no audible wheezing or stridor ABDOMEN: non-distended EXTREMITY: normal muscle tone, all joints with FROM, no deformity NUERO: normal mentation, moving all extremities, normal stance and gait, PSYCH: alert and oriented SKIN: no new rashes or lesions Course Vital Signs Vital signs: Vital Signs Temperature 97.2 F L 09/04/19 14:39 Pulse 75 09/04/19 14:39 Respiratory Rate 16 09/04/19 14:39 Blood Pressure 143/84 H 09/04/19 14:39 Pulse Oximetry 96 09/04/19 14:39 Temperature 97.2 F L 09/04/19 14:39 Temperature Source Skin 09/04/19 14:39 Pulse 75 09/04/19 14:39 Respiratory Rate 16 09/04/19 14:39 Respiratory Effort Non-Labored 09/04/19 14:39 Blood Pressure 143/84 H 09/04/19 14:39 Blood Pressure Position Sitting 09/04/19 14:39 Pulse Oximetry 96 09/04/19 14:39 Oxygen Delivery Method Room Air 09/04/19 14:39 Oxygen Flow Rate 0 09/04/19 14:39 Pain Level 6 09/04/19 14:59
== END 2019-09-04 15:03 | disposition home or self-care (01) ==
PROVIDERS: PCP Family Medicine; Visit Provider Emergency Medicine
DX: R68.84 Jaw pain (principal); J20.9 Acute bronchitis, unspecified; R22.0 Localized swelling, mass and lump, head; F17.210 Nicotine dependence, cigarettes, uncomplicated
CPT/HCPCS: 99283

== ENCOUNTER 2020-03-12 09:07 | Emergency (ER) | payer MEDICAID, SELFPAY ==
[2020-03-12 09:20] VITALS: BP 119/80; PULSE 78; TEMP 36.7; O2SAT 99
--- NOTE | 2020-03-12 09:30 | DI.CT_ITS ---
EXAM: CT ABDOMEN PELVIS WO CLINICAL HISTORY: rt lower abd pain with urinary symptoms. TECHNIQUE: Imaging Protocol: Axial computed tomography images with coronal and sagittal reformatted images were created and reviewed. Oral: no COMPARISON: CT CT ABDOMEN PELVIS W from 12/22/2018 FINDINGS: ABDOMEN: Lung Bases: Normal where visualized. Liver: Normal density. No measurable mass. Gallbladder and biliary tract: Status post cholecystectomy. No biliary dilation. Pancreas: Normal density, no abnormal calcifications or inflammatory process. Spleen: Normal. Kidneys: 2 adjacent stones are seen near the upper pole of the right kidney. Other tiny stones are s een bilaterally. No ureteral stones or hydronephrosis is present. No masses seen. Adrenal glands: No masses seen. Lymph nodes: Within normal limits. Abdominal Aorta: Abdominal portion non-dilated. PELVIS: Bladder: Symmetric distention, no gross wall thickening. Bowel: No obstruction or bowel wall thickening. Normal appendix. Peritoneal cavity: No ascites, collection or mesenteric inflammatory response. Reproductive organs: Hysterectomy. Normal appearing ovaries.. Bones: Within normal limits. IMPRESSION: Bilateral nephrolithiasis. No ureteral or bladder calculi are seen. RADIATION DOSE DELIVERED: 908.89mGy.cm Total DLP DATA REPOSITORY: All CT scans at this facility are submitted to the National Radiology Data Registry (NRDR) Dose Index Registry (DIR) with the [employer] (ACR). RADIATION OPTIMIZATION: All CT scans at this facility use at least one of these dose optimization te chniques: automated exposure control; mA and/or kV adjustment per patient size (includes targeted exa ms where dose is matched to clinical indication); or iterative reconstruction.
[2020-03-12 09:33] LABS: Bilirubin Negative (Negative); Blood Negative (Negative); Clarity Clear (Clear); Glucose Negative (Negative); Ketones Negative (Negative); Leukocyte Esterase Negative (Negative); Nitrite Negative (Negative); Specific Gravity 1.025 (1.005-1.025); Urobilinogen 0.2 EU/dL (Up TO 0.2); pH 6.5 (5-8)
--- NOTE | 2020-03-12 09:45 | W.ED.GENAD ---
Discharge Plan Disposition Patient Disposition: HOME Condition: Stable Discharge Details Chief Complaint: Urinary Clinical Impression: Dysuria, Bilateral kidney stones Primary Care Provider: Nazario Hoyos ED Provider: Fadi Medley Home Meds and New Rx's Prescriptions: New cephalexin [Keflex] 500 mg capsule 500 mg PO BID Qty: 14 RF: 0 Continued methadone 10 MG/ML concentrate 80 mg PO DAILY Qty: 70 RF: 0 Discharge Instructions Instructions: Kidney Stones (ED), Dysuria (ED) Additional Instructions: Please take full course of antibiotic as prescribed. You have follow-up scheduled with your primary care physician on Wednesday the at 1 PM. It is important that you maintain follow-up appointment. Please call your primary care physician if you have any difficulty maintaining scheduled appointment. Return to the emergency department immediately should you have any worsening or new concerning symptoms. Referrals: Nazario Hoyos [Primary Care Provider] - Discharge Data Discharge Date/Time-TO BE ENTERED AT DEPARTURE: 03/12/20 11:17 Medical Decision Making 10:00 -- 29-year-old female status post total hysterectomy and reconstructive bladder surgery here with dysuria, increased urinary frequency, bilateral flank pain, concerned that she recently passed a kidney stone, also with some right suprapubic discomfort. Patient had recent urinary tract infection about a month ago that was treated. Symptoms have returned over the past 2 weeks. Patient has no right lower quadrant pain, no tenderness over McBurney's point, no rebound tenderness. Given passage of possible stone, prior bladder surgery, consider retained stone and septic stone. Will obtain CT of the abdomen and pelvis. Urinalysis reviewed and is not consistent with a urinary tract infection. --I obtained outside hospital records from primary care clinic which note urine culture 01/12/2020 growing Enterococcus faecalis that was sensitive to ampicillin, nitrofurantoin, and vancomycin. Patient was on Macrobid and had side effects including headache. She was then treated with Bactrim. CT of the abdomen pelvis was interpreted by radiology who I spoke with on the phone, Dr. Romano noted normal appendix, normal ovaries, normal bowel, no hydronephrosis, no ureteral stone, bilateral renal stones are small and not obstructing. Urinalysis noted to be normal. Will send urine culture. Given symptoms plan to cover with Keflex. Patient was reassessed and remained stable. Plan for outpatient follow-up with PCP. I called and spoke with Dr. Sosa who will see the patient in follow-up on Wednesday the at 1:00. Disposition decision was made weighing the risks and benefits of hospitalization versus outpatient treatment, the risk for further decompensation, and the patient's wishes. The patient was stable and requested discharge. Prior to discharge, my usual and customary return precautions were reviewed with the patient - this included follow-up instructions and reason to return to the emergency department if condition worsens, does not improve as expected, or other new concerns arise. HPI General Mode of arrival: ambulatory. Date/Time Provider Initiated Documentation: 03/12/20 09:34. Limitations to Documentation: no limitations. Information obtained by: patient. HPI Narrative: 29-year-old female here with chief complaint of dysuria. Patient notes she is had burning with urination for the past 2 weeks. She has associated increased urinary frequency, decreased urinary voiding volume, burning sensation when she urinates, also some discomfort in her right groin and bilateral flanks. Pain is mild to moderate. She states that she thinks she passed a small kidney stone yesterday. She does have some associated slight nausea. No fever. Eating normal. Patient denies vaginal discharge. Patient states she was seen about a month ago by her primary care physician for urinary tract infection and had to be on 2 different antibiotics. She states her urine culture grew E. coli. She completed antibiotic course about 3 weeks ago and does note that she missed a couple doses of that 1 week treatment. Symptoms did resolve for about a week before returning. Related Data Home Medications Medication Instructions Recorded Confirmed methadone 80 mg PO DAILY #70 mg 07/23/16 03/12/20 cephalexin [Keflex] 500 mg PO BID #14 cap 03/12/20 Previous Rx's Medication Instructions Recorded cephalexin [Keflex] 500 mg PO BID #14 cap 03/12/20 Allergies Allergy/AdvReac Type Severity Reaction Status Date / Time No Known Allergies Allergy Unverified 03/12/20 09:24 General Stated Complaint: Urinary JAISON: 4 Review of Systems All systems reviewed & are unremarkable except as noted in HPI and below Constitutional Constitutional: Denies fever(s) and Denies poor appetite Gastrointestinal Gastrointestinal: Reports as per HPI Genitourinary Genitourinary: Reports as per HPI, Reports urinary urgency, Denies vaginal discharge and Denies vaginal odor PFSH Medical History Alcohol abuse Anxiety (Chronic) Biliary colic (Acute 01/15/15) Drug abuse (10/20/15) random UDS during + opiods and Methadone. Hepatitis C infection 11/2015 > 1 million copies 09/2016 254K copies. 11/2016 Nl LFTs Infected dental carries (10/20/15) Rx for Abx at time of ED visit. 12/11/16 repeat episode: R sided facial pain. Augmentin x10d. Pancreatitis 2014 admitted for gallstone pancreatitis. had rainage of a pseudocyst. underwent cholecystectomy 12/2014 Scoliosis (Chronic) Tobacco use Surgical History section (~2007) [facility] [place] 32w twin delivery. ? uterine scar. 10/30/15 RCD@ 37w. M. Cholecystectomy (01/17/15) laparoscopic cholecystitis and cholelithiasis H/O surgical procedure (Chronic) a. through vertical incision Family History Mother Substance abuse opiods Alcohol abuse Essential hypertension Mental disorder Depression and anxiety Father Mental disorder Depression and anxiety Sister Mental disorder depression and anxiety Social History Smoking/Tobacco Use Status: Current every day Tobacco Type: cigarettes Alcohol Intake: current Alcohol Intake frequency: holidays/special occasions only Drug use: Daily Substance use type: marijuana Nannette/Nondenominational: Christianity Do you feel safe at home: Yes Do you feel safe in your relationship?: Yes Exam Const General: cooperative and no acute distress HENMT Mouth: moist mucous membranes Eyes Conjunctivae: normal conjunctivae Sclera: normal sclerae Neck Neck: trachea midline and supple Resp Auscultation: clear to auscultation bilaterally, no rales, no rhonchi and no wheezes Cardio Rate: regular rate and not tachycardic Rhythm: regular rhythm GI Palpation: soft, not firm, no guarding, no masses, not rigid and tender (Mild right suprapubic) not in the RLQ and with no rebound tenderness Back/Spine/Pelvis Back: CVA tenderness (Bilateral) Skin General skin exam: no rashes or lesions noted Neuro General: patient alert, patient awake and tone normal Extrem General: no edema Psych Appearance: grossly normal Mental Status: mental status grossly normal Course Vital Signs Vital signs: Vital Signs Temperature 36.7 C 03/12/20 09:20 Pulse 78 03/12/20 09:20 Blood Pressure 119/80 03/12/20 09:20 Pulse Oximetry 99 03/12/20 09:20 Temperature 36.7 C 03/12/20 09:20 Temperature Source Temporal Artery Scan 03/12/20 09:20 Pulse 78 03/12/20 09:20 Respiratory Effort Non-Labored 03/12/20 09:22 Blood Pressure 119/80 03/12/20 09:20 Blood Pressure Position Sitting 03/12/20 09:20 Pulse Oximetry 99 03/12/20 09:20 Oxygen Delivery Method Room Air 03/12/20 09:20 Oxygen Flow Rate 0 03/12/20 09:20 Pain Level 6 03/12/20 09:22 Lab/Test Results Lab/Test Results: Laboratory Tests Range/Units 03/12/20 09:29 Urine Color (Yellow) Yellow Urine Clarity (Clear) Clear Urine pH (5-8) 6.5 Ur Specific [place] (1.005-1.025) 1.025 Urine Protein (Negative) mg/dL Negative Urine Ketones (Negative) mg/dL Negative Urine Blood (Negative) Negative Urine Nitrite (Negative) Negative Urine Bilirubin (Negative) Negative Urine Urobilinogen (Up TO 0.2) EU/dL 0.2 Ur Leukocyte Esterase (Negative) Negative Urine Glucose (Negative) mg/dL Negative
== END 2020-03-12 11:17 | disposition home or self-care (01) ==
PROVIDERS: Emergency Provider Student in an Organized Health Care Education/Training Program; PCP Family Medicine
DX: N20.0 Calculus of kidney (principal); R10.31 Right lower quadrant pain; M54.5 Low back pain; Z87.440 Personal history of urinary (tract) infections
CPT/HCPCS: 99284; 74176; 81003

== ENCOUNTER 2020-06-28 13:52 | Emergency (ER) | payer MEDICAID, SELFPAY ==
[2020-06-28 13:58] VITALS: BP 124/87; PULSE 76; RESP 16; TEMP 36.4; O2SAT 100
--- NOTE | 2020-06-28 13:58 | W.ED.GENAD ---
Discharge Plan Disposition Patient Disposition: HOME Condition: Stable Discharge Details Clinical Impression: Dental infection Primary Care Provider: Nazario Hoyos ED Provider: Marii Blue Home Meds and New Rx's Prescriptions: New amoxicillin-pot clavulanate [Augmentin] 875-125 mg tablet 1 tab PO BID 7 Days Qty: 14 RF: 0 Continued methadone 10 MG/ML concentrate 80 mg PO DAILY Qty: 70 RF: 0 Discharge Instructions Instructions: Dental Abscess (ED) Additional Instructions: You appear to have swelling of the mucosa around your teeth but there is no obvious dental abscess noted. Drink plenty of fluids and get plenty of rest. Alternate tylenol and motrin as needed and directed for pain. Take the antibiotics until finished. Follow-up with your regular dentist and oral surgery at [facility] regarding your recommended dental extraction. Return immediately to the emergency department if you develop any worsening or new concerning symptoms such as fever, increased pain or facial swelling. Discharge Data Discharge Date/Time-TO BE ENTERED AT DEPARTURE: 06/28/20 14:11 Discharge Physician: Marii Blue Medical Decision Making 29-year-old female with a history of anxiety, previous opiate abuse currently on methadone presents with left lower tooth ache for the past few days. She has multiple missing teeth and poor dentition throughout. She has some edema and tenderness to palpation of her left lower jaw with only bases of teeth noted within the mucosa in these areas. No obvious abscess. No trismus, drooling or submandibular swelling. Patient states she has responded to Augmentin in the past. Will give a prescription for Augmentin. Advised to follow-up with [facility] oral surgery for reevaluation and recommended dental extraction. Usual and customary return precautions given prior to discharge. HPI General Mode of arrival: ambulatory. Date/Time Provider Initiated Documentation: 06/28/20 13:52. Limitations to Documentation: no limitations. Information obtained by: patient. HPI Narrative: Patient is a 29-year-old female with a history of anxiety, former opiate abuse currently on methadone who presents with left lower tooth pain for the past 3 days. She states she is concerned about possible abscess. She states she has multiple missing and broken teeth and was advised to follow-up with an oral surgeon at [facility] for dental extraction but has been unable to due to transportation issues and being able to arrange the time for follow-up as she has 4 children. She denies any known fever. Related Data Home Medications Medication Instructions Recorded Confirmed methadone 80 mg PO DAILY #70 mg 07/23/16 06/28/20 amoxicillin-pot clavulanate 1 tab PO BID 7 Days #14 tab 06/28/20 [Augmentin] Previous Rx's Medication Instructions Recorded amoxicillin-pot clavulanate 1 tab PO BID 7 Days #14 tab 06/28/20 [Augmentin] Allergies Allergy/AdvReac Type Severity Reaction Status Date / Time No Known Allergies Allergy Unverified 06/28/20 14:01 General JAISON: 4 Review of Systems All systems reviewed & are unremarkable except as noted in HPI and below Constitutional Constitutional: Reports as per HPI, Denies chills and Denies fever(s) Eyes Eyes: Denies blurry vision ENT Ears, Nose, Mouth, and Throat: Reports dental pain, Denies dizziness, Denies sore throat and Denies throat swelling Cardiovascular Cardiovascular: Denies chest pain and Denies dyspnea Respiratory Respiratory: Denies cough and Denies dyspnea Gastrointestinal Gastrointestinal: Denies abdominal pain, Denies diarrhea and Denies vomiting Genitourinary Genitourinary: Denies hematuria and Denies dysuria Musculoskeletal Musculoskeletal: Reports back pain and Denies numbness Integumentary/Breasts Skin/Breast: Denies lesions and Denies rash Neurologic Neurologic: Denies dizziness, Denies localized weakness and Denies numbness Allergic/Immunologic Allergic/Immunologic: Denies throat swelling [facility] Medical History (Updated 06/28/20 @ 14:06 by Marii Blue DO) Alcohol abuse Anxiety Biliary colic (01/15/15) Drug abuse (10/20/15) random UDS during + opiods and Methadone. Hepatitis C infection 11/2015 > 1 million copies 09/2016 254K copies. 11/2016 Nl LFTs Infected dental carries (10/20/15) Rx for Abx at time of ED visit. 12/11/16 repeat episode: R sided facial pain. Augmentin x10d. Pancreatitis 2014 admitted for gallstone pancreatitis. had rainage of a pseudocyst. underwent cholecystectomy 12/2014 Scoliosis Tobacco use Surgical History section (~2007) [facility] [place] 32w twin delivery. ? uterine scar. 10/30/15 RCD@ 37w. M. Cholecystectomy (01/17/15) laparoscopic cholecystitis and cholelithiasis H/O surgical procedure a. through vertical incision Family History Mother Substance abuse opiods Alcohol abuse Essential hypertension Mental disorder Depression and anxiety Father Mental disorder Depression and anxiety Sister Mental disorder depression and anxiety Social History Smoking/Tobacco Use Status: Current every day Tobacco Type: cigarettes Alcohol Intake: current Alcohol Intake frequency: holidays/special occasions only Drug use: Daily Substance use type: marijuana Details: on methadone program for prior use history Nannette/Restoration: Mormonism Do you feel safe at home: Yes Do you feel safe in your relationship?: Yes Exam Const General: cooperative, healthy appearing and no acute distress HENMT Head: normal to inspection Ears: hearing grossly normal bilaterally, external ears normal and TM's normal bilaterally General nose exam: external nose normal Mouth: oral mucosae normal, no drooling and no trismus Teeth and gingiva: poor dentition and other (multiple missing teeth throughout) Teeth image: 1. Tenderness to palpation. Multiple missing teeth. Mild edema. No erythema, fluctuance or induration. Eyes General: appearance normal, both eyes and all related structures Neck Neck: normal visual inspection, full ROM, no lymphadenopathy, no meningeal signs, trachea midline, supple, no anterior neck swelling and No submandibular swelling Resp Effort & Inspection: normal respiratory effort and able to speak in complete sentences Cardio Rate: regular rate Skin General skin exam: no rashes or lesions noted Neuro General: patient alert, patient awake and patient oriented x3 Motor: muscle tone normal throughout Extrem General: normal to inspection and full ROM Psych Appearance: grossly normal Affect: normal affect
[2020-06-28 14:10] VITALS: BP 124/87; PULSE 76; RESP 16; TEMP 36.4; O2SAT 100
== END 2020-06-28 14:11 | disposition home or self-care (01) ==
PROVIDERS: Emergency Provider Physician Assistant; PCP Family Medicine
DX: R68.84 Jaw pain (principal); K04.7 Periapical abscess without sinus
CPT/HCPCS: 99283

== ENCOUNTER 2020-07-12 08:25 | Emergency (ER) | payer MEDICAID, SELFPAY ==
[2020-07-12 08:32] VITALS: BP 133/75; PULSE 95; RESP 16; TEMP 37; O2SAT 97
--- NOTE | 2020-07-12 08:38 | ED.GENADUL_ITS ---
Discharge Plan Disposition Patient Disposition: HOME Condition: Stable Discharge Details Clinical Impression: Pyelonephritis Primary Care Provider: Nazario Hoyos ED Provider: Marii Blue Home Meds and New Rx's Prescriptions: New cephalexin [Keflex] 500 mg capsule 500 mg PO BID 14 Days Qty: 28 RF: 0 phenazopyridine [Pyridium] 200 mg tablet 200 mg PO TID PRN (Reason: pain) Qty: 6 RF: 0 Continued methadone 10 MG/ML concentrate 80 mg PO DAILY Qty: 70 RF: 0 Discharge Instructions Instructions: Kidney Infection (ED) Additional Instructions: Drink plenty of fluids and get plenty of rest. Alternate tylenol and motrin as needed and directed for pain. Take the antibiotics until finished. Take the Pyridium as needed and directed for burning with urination. Be aware that this can turn your urine orange color. Follow-up with your primary care doctor in 1 week. Return to the emergency department with any worsening or new concerning symptoms such as fever, increased pain, persistent vomiting. Discharge Data Discharge Date/Time-TO BE ENTERED AT DEPARTURE: 07/12/20 11:10 Discharge Physician: Marii Blue Medical Decision Making 2281 -- 29-year-old female with a history of anxiety, former alcohol and opiate abuse currently on methadone presents for nausea, diarrhea, abdominal pain, UTI symptoms since early this morning. Vitals within normal limits. Patient appears nontoxic. She has tenderness to palpation most significantly on right lower quadrant but also minimally in left lower quadrant and epigastrium. No CVA tenderness. Differential diagnosis includes UTI, pyelonephritis, appendicitis, gastroenteritis, colitis. Will place an IV, bolus IV fluids, screening labs, urinalysis, CT abdomen pelvis and give IV Toradol and Compazine and reassess. 1040 --labs and imaging reviewed. Normal white blood cell count. Urinalysis notes obvious UTI. CT abdomen and pelvis notes: IMPRESSION: 1. Enhancement of the wall of the right renal pelvis and ureter with associated stranding. No radiopaque stone is seen in the collecting system. The findings may represent an inflammatory or infectious process, or possibly, a recently pa ssed stone. 2. Bilateral nephrolithiasis. 3. Normal appendix. 4. Results of this exam have been verbally communicated with provider. Patient reassessed and she feels much better. Review of previous records note that she has had previous urinary tract infections in the past with sensitivity to cephalosporins, fluoroquinolones and most often Bactrim. As she is on methadone hold on fluoroquinolones. She admits to improvement of symptoms with Keflex last year so we will treat with this. Advised to follow up with the primary care doctor for re-evaluation. Usual and customary return precautions given prior to discharge. Medical Records Medical records reviewed: Yes I reviewed the patient's medical records. Imaging Data Radiologic Study: Radiologist's impression: CT ABDOMEN PELVIS W CLINICAL HISTORY: RLQ/LLQ/epigastric abd pain TECHNIQUE: Imaging Protocol: Axial computed tomography images with coronal and sagittal reformatted images were created and reviewed CONTRAST MATERIAL: Intravenous: Omnipaque 350 Contrast volume:100 mL Oral: No COMPARISON: CT CT ABDOMEN PELVIS WO from 03/12/2020 FINDINGS: ABDOMEN: Lung Bases: Dependent atelectasis. Liver: Diffuse fatty infiltration. No measurable mass. The spleen measures 20 cm in length. Portal, Superior Mesenteric, and Splenic Veins: Unremarkable. Gallbladder and Biliary Tract: Status post cholecystectomy. No biliary ductal dilatation. Pancreas: Normal density, no abnormal calcifications or inflammatory process. Spleen: Normal. Adrenals: No masses seen. Kidneys: Normal size, contour and axis. Bilateral nephrolithiasis. No hydronephrosis. No masses seen. There is enhancement of the wall of the right renal collecting system with stranding around the renal pelvis. No radiopaque ureteral stone is seen. No bladder stone is present. Abdominal Aorta: Abdominal portion non-dilated. 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 Bowel: No obstruction or bowel wall thickening. Appendix is unremarkable. Peritoneal Cavity: No ascites, collection or mesenteric inflammatory response. Lymph Nodes: Within normal limits. Bones: Unremarkable. Soft Tissues: Anterior abdominal wall fat containing hernias. PELVIS: Bladder: Symmetric distention, no gross wall thickening. Reproductive Organs: Status post hysterectomy. Lymph Nodes: Within normal limits. Bones: Within normal limits. IMPRESSION: 1. Enhancement of the wall of the right renal pelvis and ureter with associated stranding. No radiopaque stone is seen in the collecting system. The findings may represent an inflammatory or infectious process, or possibly, a recently passed stone. 2. Bilateral nephrolithiasis. 3. Normal appendix. 4. Results of this exam have been verbally communicated with provider. Lab Data Lab results reviewed: Yes I reviewed the patient's lab results. Labs: 07/12/20 08:45 Urine - Reflex from Ua Urine Culture - Pending Laboratory Tests Range/Units 07/12/20 07/12/20 07/12/20 08:45 08:47 08:47 WBC (4.4-10.8) 10^3/uL 8.02 RBC (3.93-5.22) 10^6/uL 5.07 Hgb (11.2-15.7) g/dL 14.6 Hct (36.0-46.0) % 43.6 MCV (80-95) fL 86.0 MCH (27.0-33.0) pg 28.8 MCHC (32.0-36.0) % 33.5 RDW (11.7-14.6) % 11.9 Plt Count (130-400) 10^3/uL 270 MPV (8.0-11.0) fL 8.5 Immature Gran % 0.4 Neutrophils % 78.3 Lymphocytes % 15.3 Monocytes % 5.4 Eosinophils % 0.5 Basophils % 0.1 Nucleated RBC % % 0 Absolute Neutrophils (1.2-6.7) 10^3/uL 6.28 Absolute Lymphocytes (1.2-3.4) 10^3/uL 1.23 Absolute Monocytes (0.1-0.8) 10^3/uL 0.43 Absolute Eosinophils (0.0-0.7) 10^3/uL 0.04 Absolute Basophils (0.0-0.2) 10^3/uL 0.01 Sodium (136-145) mmol/L 138 Potassium (3.5-5.1) mmol/L 3.8 Chloride (98-107) mmol/L 104 Carbon Dioxide (21.0-32.0) mmol/L 24.9 Anion Gap (3-11) mmol/L 9.1 BUN (7-18) mg/dL 14 Creatinine (0.55-1.02) mg/dL 0.75 Estimated GFR/1.73 m2 (mL/min/1.73m2) >= 60.00 Glucose (74-106) mg/dL 139 H Calcium (8.5-10.1) mg/dL 8.7 Total Bilirubin (0.2-1.0) mg/dL 0.7 AST (15-37) U/L 47 H ALT (14-59) U/L 76 H Alkaline Phosphatase (46-116) U/L 50 Total Protein (6.4-8.2) g/dL 8.1 Albumin (3.4-5.0) g/dL 3.6 Urine Color (Yellow) Yellow Urine Clarity (Clear) Sl cloudy Urine pH (5-8) 7.5 Ur Specific [place] (1.005-1.025) 1.025 Urine Protein (Negative) mg/dL >=300 H Urine Ketones (Negative) mg/dL Negative Urine Blood (Negative) Large H Urine Nitrite (Negative) Negative Urine Bilirubin (Negative) Negative Urine Urobilinogen (Up TO 0.2) EU/dL 0.2 Ur Leukocyte Esterase (Negative) Small H Urine RBC (0-2) HPF >50 H Urine WBC (0-5) HPF >50 H Ur Epithelial Cells (Negative) HPF Few Urine Crystals (Negative) HPF Negative Urine Bacteria (Negative) HPF Moderate Urine Mucus (Negative) Negative Urine Other (Negative) Few renal Ur Culture Indicated? Yes Urine Glucose (Negative) mg/dL Negative HPI General Mode of arrival: ambulatory . Date/Time Provider Initiated Documentation: 07/12/20 08:27 . Limitations to Documentation: no limitations . Information obtained by: patient . HPI Narrative: Patient is a 29-year-old female with history of anxiety, hepatitis C, former alcohol and opiate abuse currently on methadone presents for nausea, diarrhea and abdominal pain since 1 AM. Patient states she awoke with right lower quadrant sharp abdominal pain but now is complaining of pain in her epigastrium, left lower quadrant but still worse in the right lower quadrant. She states the pain is currently 7/10. She states there is a constant dull pain but intermittent sharp pain. She states she had 1 full day of watery brown diarrhea 2 days ago and then had a soft brown stool early this morning. She states she has had urinary tract infections, ki dney infections and kidney stones in the past. States this feels similar to a kidney infection in the past but more intense. She also admits to urinary frequency, urgency and dysuria. She was treated with antibiotics for a tooth infection last week and stop the antibiotics early when her tooth pain improved. She states her mom was sick with similar GI symptoms last week. She denies known fever, recent travel or recent hospital admissions. Related Data Home Medications Medication Instructions Recorded Confirmed methadone 80 mg PO DAILY #70 mg 07/23/16 07/12/20 cephalexin [Keflex] 500 mg PO BID 14 Days #28 cap 07/12/20 phenazopyridine [Pyridium] 200 mg PO TID PRN #6 tab 07/12/20 Previous Rx's Medication Instructions Recorded cephalexin [Keflex] 500 mg PO BID 14 Days #28 cap 07/12/20 phenazopyridine [Pyridium] 200 mg PO TID PRN #6 tab 07/12/20 Allergies Allergy/AdvReac Type Severity Reaction Status Date / Time No Known Allergies Allergy Unverified 07/12/20 08:43 General JAISON: 5 Review of Systems All systems reviewed & are unremarkable except as noted in HPI and below Constitutional Constitutional: Reports as per HPI, Denies chills and Denies fever(s) Eyes Eyes: Denies blurry vision ENT Ears, Nose, Mouth, and Throat: Denies dizziness, Denies sore throat and Denies throat swelling Cardiovascular Cardiovascular: Denies chest pain and Denies dyspnea Respiratory Respiratory: Denies cough and Denies dyspnea Gastrointestinal Gastrointestinal: Denies abdominal pain, Denies diarrhea and Denies vomiting Genitourinary Genitourinary: Denies hematuria and Denies dysuria Musculoskeletal Musculoskeletal: Denies back pain and Denies numbness Integumentary/Breasts Skin/Breast: Denies lesions and Denies rash Neurologic Neurologic: Denies dizziness, Denies localized weakness and Denies numbness Allergic/Immunologic Allergic/Immunologic: Denies throat swelling [facility] Medical History (Updated 07/12/20 @ 10:54 by Marii Blue DO) Alcohol abuse Anxiety Biliary colic (01/15/15) Drug abuse (10/20/15) random UDS during + opiods and Methadone. Hepatitis C infection 11/2015 > 1 million copies 09/2016 254K copies. 11/2016 Nl LFTs Infected dental carries (10/20/15) Rx for Abx at time of ED visit. 12/11/16 repeat episode: R sided facial pain. Augmentin x10d. Pancreatitis 2014 admitted for gallstone pancreatitis. had rainage of a pseudocyst. underwent cholecystectomy 12/2014 Scoliosis Tobacco use [place]2007[place] [facility] [place]. ? uterine scar. 10/30/15 RCD@ 37w. M. Cholecystectomy (01/17/15) laparoscopic cholecystitis and cholelithiasis H/O surgical procedure a. through vertical incision Family History Mother Substance abuse opiods Alcohol abuse Essential hypertension Mental disorder Depression and anxiety Father Mental disorder Depression and anxiety Sister Mental disorder depression and anxiety Social History Smoking/Tobacco Use Status: Current every day Tobacco Type: cigarettes Alcohol Intake: current Alcohol Intake frequency: holidays/special occasions only Drug use: Daily Substance use type: marijuana Details: on methadone program for prior use history Nannette/Mosque: Jewish Do you feel safe at home: Yes Do you feel safe in your relationship?: Yes Exam Const General: cooperative, healthy appearing and no acute distress HENMT Head: normal to inspection Face and sinus: normal facial exam Eyes General: appearance normal, both eyes and all related structures EOM: EOM intact bilaterally Neck Neck: normal visual inspection and No submandibular swelling Lymphatic: no lymphadenopathy noted Chest Chest: normal inspection of the chest and no tenderness Resp Effort & Inspection: normal respiratory effort and able to speak in complete sentences Auscultation: clear to auscultation bilaterally Cardio Rate: regular rate Rhythm: regular rhythm GI Inspection: normal to inspection Palpation: soft, not firm, no guarding, not rigid and tender in the RLQ and at McBurney's point; with no rebound tenderness Auscultation: normal bowel sounds Back/Spine/Pelvis Back: no CVA tenderness Thoracic/Lumbar Spine: thoracic and lumbar spine normal to inspection Skin General skin exam: no rashes or lesions noted Neuro General: patient alert, patient awake and patient oriented x3 Cognition: normal cognition Speech: speech normal Motor: muscle tone normal throughout Sensory Exam: no sensory deficits noted Extrem General: normal to inspection, full ROM, capillary refill normal, no calf tenderness bilaterally and no edema Psych Appearance: grossly normal Mental Status: mental status grossly normal Speech and Movement: speech and movement normal Affect: normal affect
--- NOTE | 2020-07-12 08:45 | DI.CT_ITS ---
EXAM: CT ABDOMEN PELVIS W CLINICAL HISTORY: RLQ/LLQ/epigastric abd pain TECHNIQUE: Imaging Protocol: Axial computed tomography images with coronal and sagittal reformatted images were created and reviewed CONTRAST MATERIAL: Intravenous: Omnipaque 350 Contrast volume:100 mL Oral: No COMPARISON: CT CT ABDOMEN PELVIS WO from 03/12/2020 FINDINGS: ABDOMEN: Lung Bases: Dependent atelectasis. Liver: Diffuse fatty infiltration. No measurable mass. The spleen measures 20 cm in length. Portal, Superior Mesenteric, and Splenic Veins: Unremarkable. Gallbladder and Biliary Tract: Status post cholecystectomy. No biliary ductal dilatation. Pancreas: Normal density, no abnormal calcifications or inflammatory process. Spleen: Normal. Adrenals: No masses seen. Kidneys: Normal size, contour and axis. Bilateral nephrolithiasis. No hydronephrosis. No masses see n. There is enhancement of the wall of the right renal collecting system with stranding around the re nal pelvis. No radiopaque ureteral stone is seen. No bladder stone is present. Abdominal Aorta: Abdominal portion non-dilated. 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 Bowel: No obstruction or bowel wall thickening. Appendix is unremarkable. Peritoneal Cavity: No ascites, collection or mesenteric inflammatory response. Lymph Nodes: Within normal limits. Bones: Unremarkable. Soft Tissues: Anterior abdominal wall fat containing hernias. PELVIS: Bladder: Symmetric distention, no gross wall thickening. Reproductive Organs: Status post hysterectomy. Lymph Nodes: Within normal limits. Bones: Within normal limits. IMPRESSION: 1. Enhancement of the wall of the right renal pelvis and ureter with associated stranding. No radiop aque stone is seen in the collecting system. The findings may represent an inflammatory or infectiou s process, or possibly, a recently passed stone. 2. Bilateral nephrolithiasis. 3. Normal appendix. 4. Results of this exam have been verbally communicated with provider. RADIATION DOSE DELIVERED: 1,031.55mGy.cm Total DLP DATA REPOSITORY: All CT scans at this facility are submitted to the National Radiology Data Registry (NRDR) Dose Index Registry (DIR) with the [employer] (ACR). RADIATION OPTIMIZATION: All CT scans at this facility use at least one of these dose optimization te chniques: automated exposure control; mA and/or kV adjustment per patient size (includes targeted exa ms where dose is matched to clinical indication); or iterative reconstruction.
[2020-07-12] MEDS: Normal Saline 1,000 ML 1000 ML IV (09:05)
[2020-07-12] MEDS: Ketorolac 30 MG/ML VIAL IVP (09:06)
[2020-07-12] MEDS: Prochlorperazine 10 MG/2 ML VIAL IVP (09:06)
[2020-07-12 09:12] LABS: Abs Immature Grans 0.03 10^3/uL (0.0-0.06); Absolute Basophil Count 0.01 10^3/uL (0.0-0.2); Absolute Eosinophil Count 0.04 10^3/uL (0.0-0.7); Absolute Lymphocyte Count 1.23 10^3/uL (1.2-3.4); Absolute Monocyte Count 0.43 10^3/uL (0.1-0.8); Absolute Neutrophil Count 6.28 10^3/uL (1.2-6.7); Basophils % 0.1; Eosinophils % 0.5; HCT 43.6 % (36.0-46.0); HGB 14.6 g/dL (11.2-15.7); Immature Grans % 0.4; Lymphocytes % 15.3; MCH 28.8 pg (27.0-33.0); MCHC 33.5 % (32.0-36.0); MPV 8.5 fL (8.0-11.0); Monocytes % 5.4; Neutrophils % 78.3; Nucleated RBC 0 %; Platelet Count 270 10^3/uL (130-400); RBC 5.07 10^6/uL (3.93-5.22); RDW 11.9 % (11.7-14.6); RDW-SD 37.1 fL; WBC 8.02 10^3/uL (4.4-10.8)
[2020-07-12 09:21] LABS: Bilirubin Negative (Negative); Blood Large (Negative); Clarity Sl Cloudy (Clear); Glucose Negative (Negative); Ketones Negative (Negative); Leukocyte Esterase Small (Negative); Nitrite Negative (Negative); Specific Gravity 1.025 (1.005-1.025); Urobilinogen 0.2 EU/dL (Up TO 0.2); pH 7.5 (5-8)
[2020-07-12 09:25] LABS: ALT 76 U/L (14-59); AST 47 U/L (15-37); Albumin 3.6 g/dL (3.4-5.0); Alkaline Phosphatase 50 U/L (46-116); Anion Gap 9.1 mmol/L (3-11); BUN 14 mg/dL (7-18); Bilirubin, Total 0.7 mg/dL (0.2-1.0); CO2 24.9 mmol/L (21.0-32.0); CREATININE 0.75 mg/dL (0.55-1.02); Calcium 8.7 mg/dL (8.5-10.1); Chloride 104 mmol/L (98-107); Glucose 139 mg/dL (74-106); Potassium 3.8 mmol/L (3.5-5.1); Sodium 138 mmol/L (136-145); Total Protein 8.1 g/dL (6.4-8.2)
[2020-07-12 09:34] LABS: Epithelial Cells Few HPF (Negative); Other Cells Few Renal (Negative); RBC >50 HPF (0-2); WBC >50 HPF (0-5)
[2020-07-12 09:35] LABS: Bacteria Moderate HPF (Negative); C & S Indicated? Yes; Crystals Negative HPF (Negative); Mucus Negative (Negative)
[2020-07-12] MEDS: Omnipaque 350 MG/ML 100 ML BTL IV (10:14)
[2020-07-12] MEDS: Normal Saline - Diluent 50 ML VIAL IV (10:20)
[2020-07-12 10:49] VITALS: BP 102/64; PULSE 68; RESP 18; O2SAT 97
[2020-07-12] MEDS: Cephalexin 500 MG CAP PO (11:01)
== END 2020-07-12 11:10 | disposition home or self-care (01) ==
PROVIDERS: Emergency Provider Physician Assistant; PCP Family Medicine
DX: N10 Acute pyelonephritis (principal); B96.20 Unspecified Escherichia coli [E. coli] as the cause of diseases classified elsewhere; Z87.442 Personal history of urinary calculi; Z87.440 Personal history of urinary (tract) infections
CPT/HCPCS: 36415; 80053; 87077; 96361; 96374; 96375; 99285; 74177; 81003; 81015; 85025; 87086; 87186; J0780; J1885; J3490

== ENCOUNTER 2021-01-05 17:11 | Emergency (ER) | payer MEDICAID, SELFPAY ==
[2021-01-05 17:17] VITALS: BP 128/85; PULSE 71; TEMP 36.6; O2SAT 100
--- NOTE | 2021-01-05 17:32 | W.ED.GENAD ---
Discharge Plan Disposition Patient Disposition: HOME Condition: Stable Discharge Details Clinical Impression: Urinary tract infection, Pain, dental Primary Care Provider: Nazario Hoyos ED Provider: Lex Gabriel Home Meds and New Rx's Prescriptions: New amoxicillin-pot clavulanate [Augmentin] 875-125 mg tablet 1 tab PO BID Qty: 14 RF: 0 nitrofurantoin monohyd/m-cryst [Macrobid] 100 mg capsule 100 mg PO Q12H 5 Days Qty: 10 RF: 0 Continued methadone 10 MG/ML concentrate 80 mg PO DAILY Qty: 70 RF: 0 acetaminophen [Tylenol] 325 mg Tablet 650 mg PO DAILY PRNRF: 0 ibuprofen 800 mg Tablet 800 mg PO Q8H PRNRF: 0 Discharge Instructions Instructions: Urinary Tract Infection in Women (ED) Additional Instructions: if your symptoms continue this week follow up with your primary care provider and also follow up with your dentist as soon as possible if severe worsening pain, fevers, or persistent vomit return to the emergency department Medical Decision Making 30 yo female with hx of prior substance abuse on methadone comes in with complaints of left upper gum/maxillary sinus pain as well as dysuria with urinary frequency for a day. She states she had what felt like a dental abscess of the right upper molar and self treated with left over augmentin from a prescription from months ago per patient. This resolved her discomfort on the right upper teeth but now has left upper mid molar pain and pain in the left maxillary sinus. No fevers, vision changes and has no skin changes on exam. Has no visible abscess on exam, numerous dental caries with pain to percussion to eroded mid molar on left side, normla oropharynx with no pain over the hyoid, midline uvula and no submandibular swelling, eomi without pain or vision changes. Exam consistent with pain either due to pulpitis vs dental caries or possible sinusitis, no findings on exam to suggest orbital cellulitis, retropharyngeal abscess, ludwigs or epilglotitis. Will start her on agumentin for this issue. She also notes dysuria and frequency without upper back pain or abdomen pain, no fevers or vomit. Has no cva tenderness on exam or abdominal tenderness,suspect cystitis, will obtain UA ua consistent with uti, no indication of pyelo on exam or history to suggest pyelo or sepsis at this time. Will d/c on augmentin and macrobid with return precautions Differential Diagnosis Differential Diagnosis: dental infection, caries, sinusitis, cystitis Medical Records Medical records reviewed: Yes I reviewed the patient's medical records. Lab Data Lab results reviewed: Yes I reviewed the patient's lab results. HPI General Mode of arrival: ambulatory. Date/Time Provider Initiated Documentation: 01/05/21 17:13. Limitations to Documentation: no limitations. Information obtained by: patient. History of Present Illness 30 year old F presents to the emergency department with the chief complaint of left gum/face pain, described as moderate, Quality is described as aching, Patient started experiencing this day(s) (1) and it has been constant. No relieving factors improve symptom(s), No exacerbating factors reported . Patient did receive the following treatments prior to arrival, NSAID Related Data Home Medications Medication Instructions Recorded Confirmed methadone 80 mg PO DAILY #70 mg 07/23/16 01/05/21 acetaminophen [Tylenol] 650 mg PO DAILY PRN 01/05/21 01/05/21 amoxicillin-pot clavulanate 1 tab PO BID #14 tab 01/05/21 [Augmentin] ibuprofen 800 mg PO Q8H PRN 01/05/21 01/05/21 nitrofurantoin monohyd/m-cryst 100 mg PO Q12H 5 Days #10 cap 01/05/21 [Macrobid] Previous Rx's Medication Instructions Recorded amoxicillin-pot clavulanate 1 tab PO BID #14 tab 01/05/21 [Augmentin] nitrofurantoin monohyd/m-cryst 100 mg PO Q12H 5 Days #10 cap 01/05/21 [Macrobid] Allergies Allergy/AdvReac Type Severity Reaction Status Date / Time No Known Allergies Allergy Unverified 01/05/21 17:22 General Stated Complaint: DentalOral JAISON: 4 Review of Systems All systems reviewed & are unremarkable except as noted in HPI and below Constitutional Constitutional: Denies chills, Denies fever(s) and Denies weakness ENT Ears, Nose, Mouth, and Throat: Denies change in voice Cardiovascular Cardiovascular: Denies chest pain and Denies dyspnea Respiratory Respiratory: Denies cough and Denies dyspnea Gastrointestinal Gastrointestinal: Denies abdominal pain, Denies nausea and Denies vomiting Integumentary/Breasts Skin/Breast: Denies rash Neurologic Neurologic: Denies weakness PFSH Medical History (Updated 01/05/21 @ 18:11 by Lex Gabriel MD) Alcohol abuse Anxiety Biliary colic (01/15/15) Drug abuse (10/20/15) random UDS during + opiods and Methadone. Hepatitis C infection 11/2015 > 1 million copies 09/2016 254K copies. 11/2016 Nl LFTs Infected dental carries (10/20/15) Rx for Abx at time of ED visit. 12/11/16 repeat episode: R sided facial pain. Augmentin x10d. Pancreatitis 2014 admitted for gallstone pancreatitis. had rainage of a pseudocyst. underwent cholecystectomy 12/2014 Scoliosis Tobacco use Surgical History section (~2007) [facility] [place] 32w twin delivery. ? uterine scar. 10/30/15 RCD@ 37w. M. Cholecystectomy (01/17/15) laparoscopic cholecystitis and cholelithiasis H/O surgical procedure a. through vertical incision Family History Mother Substance abuse opiods Alcohol abuse Essential hypertension Mental disorder Depression and anxiety Father Mental disorder Depression and anxiety Sister Mental disorder depression and anxiety Social History Smoking/Tobacco Use Status: Current every day Tobacco Type: cigarettes Smoking risk assessment performed?: Yes Alcohol Intake: current Alcohol Intake frequency: holidays/special occasions only Drug use: Daily Substance use type: marijuana Details: on methadone program for prior use history Nannette/Baptist: Confucianism Do you feel safe at home: Yes Do you feel safe in your relationship?: Yes Exam Const General: no acute distress Orientation: alert HENMT Head: normal to inspection Ears: external ears normal General nose exam: external nose normal Mouth: moist mucous membranes Eyes General: appearance normal, both eyes and all related structures Neck Neck: normal visual inspection Resp Effort & Inspection: normal respiratory effort and able to speak in complete sentences Cardio Rate: regular rate Back/Spine/Pelvis Back: no CVA tenderness Skin General skin exam: no rashes or lesions noted Neuro General: patient alert and patient oriented x3 Extrem General: normal to inspection Psych Mental Status: mental status grossly normal Course Vital Signs Vital signs: Vital Signs Temperature 36.6 C 01/05/21 17:17 Pulse 71 01/05/21 17:17 Blood Pressure 128/85 01/05/21 17:17 Pulse Oximetry 100 01/05/21 17:17 Temperature 36.6 C 01/05/21 17:17 Temperature Source Temporal Artery Scan 01/05/21 17:17 Pulse 71 01/05/21 17:17 Respiratory Effort Non-Labored 01/05/21 17:21 Blood Pressure 128/85 01/05/21 17:17 Blood Pressure Position Sitting 01/05/21 17:17 Pulse Oximetry 100 01/05/21 17:17 Oxygen Delivery Method Room Air 01/05/21 17:17 Oxygen Flow Rate 0 01/05/21 17:17 Pain Level 6 01/05/21 17:17
[2021-01-05] MEDS: Amoxicillin 875/Clav. 125 TAB PO (17:39)
[2021-01-05 17:55] LABS: Bilirubin Negative (Negative); Blood Negative (Negative); Clarity Clear (Clear); Glucose Negative (Negative); Ketones Negative (Negative); Leukocyte Esterase Trace (Negative); Nitrite Positive (Negative); Specific Gravity >= 1.030 (1.005-1.025); Urobilinogen 0.2 EU/dL (Up TO 0.2)
[2021-01-05 18:04] LABS: Bacteria Many HPF (Negative); C & S Indicated? Yes; Casts Negative LPF (Negative); Crystals Negative HPF (Negative); Epithelial Cells Rare HPF (Negative); Mucus Negative (Negative); RBC Negative HPF (0-2)
[2021-01-05] MEDS: MacroBID 100 MG CAP PO (18:18)
== END 2021-01-05 18:22 | disposition home or self-care (01) ==
PROVIDERS: Emergency Provider Emergency Medicine; PCP Family Medicine
DX: N39.0 Urinary tract infection, site not specified (principal); K08.89 Other specified disorders of teeth and supporting structures
CPT/HCPCS: 87077; 99283; 81003; 81015; 87086; 87186

== ENCOUNTER 2021-01-06 21:02 | Emergency (ER) | payer MEDICAID, SELFPAY ==
[2021-01-06 21:10] VITALS: BP 129/77; PULSE 68; RESP 16; TEMP 36.6; O2SAT 98
--- NOTE | 2021-01-06 21:30 | W.ED.GENAD ---
Discharge Plan Disposition Patient Disposition: HOME Condition: Good Discharge Details Clinical Impression: Pain, dental Primary Care Provider: Nazario Hoyos ED Provider: Doug Sanchez Home Meds and New Rx's Prescriptions: Continued methadone 10 MG/ML concentrate 80 mg PO DAILY Qty: 70 RF: 0 acetaminophen [Tylenol] 325 mg Tablet 650 mg PO DAILY PRNRF: 0 ibuprofen 800 mg Tablet 800 mg PO Q8H PRNRF: 0 amoxicillin-pot clavulanate [Augmentin] 875-125 mg tablet 1 tab PO BID Qty: 14 RF: 0 nitrofurantoin monohyd/m-cryst [Macrobid] 100 mg capsule 100 mg PO Q12H 5 Days Qty: 10 RF: 0 Discharge Instructions Instructions: Toothache (ED) Additional Instructions: Please continue to take your antibiotic. You can take a maximum dose of 800 mg of ibuprofen every 6 hours and 1000 mg of Tylenol every 6 hours. If you notice any worsening of your symptoms, or any new symptoms such as vomiting, diarrhea, fever, chills, shortness of breath, chest pain, numbness, weakness, or fainting , please return immediately to the emergency department for reevaluation. Please follow up with your dentist as soon as possible for reassessment and reevaluation. As always, it was a pleasure participating in your medical care today. Referrals: Nazario Hoyos [Primary Care Provider] - Discharge Data Discharge Date/Time-TO BE ENTERED AT DEPARTURE: 01/06/21 21:35 Medical Decision Making 30-year-old female with a past medical history of dental caries throughout her upper teeth, presents today for evaluation of persistent dental pain. She was started on Augmentin, she has been taking Tylenol and Motrin. Unfortunately in spite of this she has had continued pain. She was offered a dental block before but declined then. She would like a dental block at this time. She denies any fever or chills. No other complaints at this time. No drainage from her teeth. She does have a dentist at [facility] but she has not yet scheduled an appointment Exam demonstrates notable dental caries throughout. No periapical abscess requiring drainage. Dental block was performed and the patient demonstrated notable improvement of her symptomatology. Recommend continuation of Tylenol Motrin and antibiotics and close follow-up with dentistry. I have extensively reviewed the treatment plan and discharge instructions with the patient. I have addressed all patient concerns at this time. The patient was made aware of what symptoms to monitor for that would warrant a return to the emergency department. Discussed the plan with the patient, they demonstrate verbal understanding and agreement with our assessment and plan at this time. The documentation in this chart was dictated using [employer] dictation software. Please excuse any dictation errors. HPI General Date/Time Provider Initiated Documentation: 01/06/21 21:30. HPI Narrative: 30-year-old female with a past medical history of dental caries throughout her upper teeth, presents today for evaluation of persistent dental pain. She was started on Augmentin, she has been taking Tylenol and Motrin. Unfortunately in spite of this she has had continued pain. She was offered a dental block before but declined then. She would like a dental block at this time. She denies any fever or chills. No other complaints at this time. No drainage from her teeth. She does have a dentist at [facility] but she has not yet scheduled an appointment Related Data Home Medications Medication Instructions Recorded Confirmed methadone 80 mg PO DAILY #70 mg 07/23/16 01/06/21 acetaminophen [Tylenol] 650 mg PO DAILY PRN 01/05/21 01/06/21 amoxicillin-pot clavulanate 1 tab PO BID #14 tab 01/05/21 01/06/21 [Augmentin] ibuprofen 800 mg PO Q8H PRN 01/05/21 01/06/21 nitrofurantoin monohyd/m-cryst 100 mg PO Q12H 5 Days #10 cap 01/05/21 01/06/21 [Macrobid] Previous Rx's Medication Instructions Recorded amoxicillin-pot clavulanate 1 tab PO BID #14 tab 01/05/21 [Augmentin] nitrofurantoin monohyd/m-cryst 100 mg PO Q12H 5 Days #10 cap 01/05/21 [Macrobid] Allergies Allergy/AdvReac Type Severity Reaction Status Date / Time No Known Allergies Allergy Unverified 01/06/21 21:14 General Stated Complaint: DentalOral JAISON: 4 Review of Systems All systems reviewed & are unremarkable except as noted in HPI and below PFSH Medical History Alcohol abuse Anxiety Biliary colic (01/15/15) Drug abuse (10/20/15) random UDS during + opiods and Methadone. Hepatitis C infection 11/2015 > 1 million copies 09/2016 254K copies. 11/2016 Nl LFTs Infected dental carries (10/20/15) Rx for Abx at time of ED visit. 12/11/16 repeat episode: R sided facial pain. Augmentin x10d. Pancreatitis 2014 admitted for gallstone pancreatitis. had rainage of a pseudocyst. underwent cholecystectomy 12/2014 Scoliosis Tobacco use Surgical History section (~2007) [facility] [place] @ 32w twin delivery. ? uterine scar. 10/30/15 RCD@ 37w. M. Cholecystectomy (01/17/15) laparoscopic cholecystitis and cholelithiasis H/O surgical procedure a. through vertical incision Family History Mother Substance abuse opiods Alcohol abuse Essential hypertension Mental disorder Depression and anxiety Father Mental disorder Depression and anxiety Sister Mental disorder depression and anxiety Social History Smoking/Tobacco Use Status: Current every day Tobacco Type: cigarettes Smoking risk assessment performed?: Yes Alcohol Intake: current Alcohol Intake frequency: holidays/special occasions only Drug use: Daily Substance use type: marijuana Details: on methadone program for prior use history Nannette/Pentecostal: Evangelical Do you feel safe at home: Yes Do you feel safe in your relationship?: Yes Exam Narrative Exam Narrative: 1.Const: Well-nourished, Well-developed, appearing stated age 2.Eyes: PERRL, no conjunctival injection, and symmetrical lids. 3.ENT: Atraumatic external nose and ears. Moist MM. Neck: Symmetric, trachea midline, No thyromegaly. Notable dental caries throughout, notably poor dentition. No periapical abscess. Patient primary point of pain is around teeth 9,10 and 11. 4.CVS: +S1/S2, No murmurs or gallops. Peripheral pulses 2+ and equal in all extremities. Brisk capillary refill in all extremities. 5.RESP: Unlabored respiratory effort. Clear to auscultation bilaterally. No wheezes rales or rhonchi 6.GI: Soft, Nontender/Nondistended, No hepatosplenomegaly. No guarding or rebound. 7.MSK: Normocephalic/Atraumatic, Extremities w/o deformity or ttp No cyanosis or clubbing, Normal movement of all extremities 8.Skin: Warm, Dry. No rashes or lesions. 9.Neuro: public area supervisor II-XII grossly intact. Sensation grossly intact, no focal neurologic deficits. 10.Psych: (AAO) x3. Appropriate mood and affect Course Vital Signs Vital signs: Vital Signs Temperature 36.6 C 01/06/21 21:10 Pulse 68 01/06/21 21:10 Respiratory Rate 16 01/06/21 21:10 Blood Pressure 129/77 01/06/21 21:10 Pulse Oximetry 98 01/06/21 21:10 Temperature 36.6 C 01/06/21 21:10 Temperature Source Tympanic 01/06/21 21:10 Pulse 68 01/06/21 21:10 Respiratory Rate 16 01/06/21 21:10 Respiratory Effort 01/06/21 21:10 Blood Pressure 129/77 01/06/21 21:10 Blood Pressure Position Sitting 01/06/21 21:10 Pulse Oximetry 98 01/06/21 21:10 Oxygen Delivery Method Room Air 01/06/21 21:10 Oxygen Flow Rate 0 01/06/21 21:10 Pain Level 9 01/06/21 21:17 Procedures Nerve Block Nerve Block 1: Time out performed: Yes Local Anesthetic: Bupivicaine 0.5% Amount of anesthesia used (mL): 7 Side: left Intraoral Nerve Block: superior alveolar Procedure Successful: Yes Patient Tolerated Procedure: well Complications: none
== END 2021-01-06 21:35 | disposition home or self-care (01) ==
PROVIDERS: Emergency Provider Student in an Organized Health Care Education/Training Program; PCP Family Medicine
DX: R68.84 Jaw pain (principal)
CPT/HCPCS: 64450

== ENCOUNTER 2021-03-12 09:51 | Emergency (ER) | payer MEDICAID, SELFPAY ==
[2021-03-12 09:57] VITALS: BP 121/69; PULSE 88; RESP 18; TEMP 36.2; O2SAT 96
--- NOTE | 2021-03-12 10:12 | ED.GENADUL_ITS ---
Discharge Plan Disposition Patient Disposition: HOME Condition: Stable Discharge Details Clinical Impression: Infected dental caries Primary Care Provider: Nazario Hoyos ED Provider: Jennifer Mendoza Home Meds and New Rx's Prescriptions: New clindamycin HCl 300 mg capsule 300 mg PO BID 7 Days Qty: 14 RF: 0 No Action methadone 10 MG/ML concentrate 80 mg PO DAILY Qty: 70 RF: 0 acetaminophen [Tylenol] 325 mg Tablet 650 mg PO DAILY PRNRF: 0 ibuprofen 800 mg Tablet 800 mg PO Q8H PRNRF: 0 amoxicillin-pot clavulanate [Augmentin] 875-125 mg tablet 1 tab PO BID RF: 0 Discharge Instructions Instructions: Dental Caries (ED) Additional Instructions: Follow up with primary care provider in 3-5 days. Return to ED sooner if any worsening or concerns. Increase oral fluids. Please take Tylenol or Ibuprofen with food every 4-6 hours as needed for pain and swelling. Take antibiotics as directed. Follow-up with dentist in 1 week. Apply the Hurricaine gel up to 3 times daily as needed for pain. Continue with the warm compresses and salt water rinses. Try to stop smoking if possible this will greatly improve your dental health. Referrals: Nazario Hoyos [Primary Care Provider] - Medical Decision Making 30-year-old female presents to the ER with chief complaint of left upper lip swelling and dental pain. Patient has generalized poor dentition, she reports that she is working with [facility] and her dentist for surgery. She does get frequent dental infections. Last infection was approximately 2 months ago and was placed on Augmentin at that time. She is a smoker. She reports smoking approximately half pack daily. Denies any drugs or alcohol. She does take methadone daily. She is speaking in full sentences, denies any shortness of breath no stridor noted on exam. No cervical lymphadenopathy. Posterior pharynx within normal limits. Upon my initial exam no palpated fluctuant drainable abscess noted at this time. Patient given Hurricaine gel topically and first dose of 300 mg clindamycin here in department and instructed on use for home, clindamycin 300 mg twice daily x7 days ordered and given patient outpatient dental resources. Instructed to follow-up with dentist next week. Discussed strict return instructions, verbalized understanding. This text was generated using Dragon dictation system, please disregard any oddities of phrase or misspellings. HPI General Mode of arrival: ambulatory . Date/Time Provider Initiated Documentation: 03/12/21 10:05 . Limitations to Documentation: no limitations . Information obtained by: patient . HPI Narrative: 30-year-old female presents to the ER with chief complaint of left upper lip swelling and dental pain. Selina osman has generalized poor dentition, she reports that she is working with [facility] and her dentist for surgery. She does get frequent dental infections. Last infection was approximately 2 months ago and was placed on Augmentin at that time. She is a smoker. She reports smoking approximately half pack daily. Denies any drugs or alcohol. She does take methadone daily. She is speaking in full sentences, denies any shortness of breath no stridor noted on exam. No cervical lymphadenopathy. Posterior pharynx within normal limits. Related Data Home Medications Medication Instructions Recorded Confirmed methadone 80 mg PO DAILY #70 mg 07/23/16 03/12/21 acetaminophen [Tylenol] 650 mg PO DAILY PRN 01/05/21 03/12/21 ibuprofen 800 mg PO Q8H PRN 01/05/21 03/12/21 amoxicillin-pot clavulanate 1 tab PO BID 03/12/21 03/12/21 [Augmentin] clindamycin HCl 300 mg PO BID 7 Days #14 cap 03/12/21 Previous Rx's Medication Instructions Recorded clindamycin HCl 300 mg PO BID 7 Days #14 cap 03/12/21 Allergies Allergy/AdvReac Type Severity Reaction Status Date / Time No Known Allergies Allergy Unverified 01/06/21 21:14 General Stated Complaint: DentalOral JAISON: 4 Review of Systems Narrative: Constitutional: Negative for weight loss, alert and oriented, well groomed, normal body habitus, appears comfortable. Denies any documented fever does report feeling hot and cold HEENT: Denies trauma, headaches, blurry vision, nasal discharge, sore throat, trouble swallowing. Reports left upper lip swelling x3 days and dental pain, history of generalized chronic dental caries with frequent infections. Chest: Denies chest pain, palpitations, irregular rhythm, hypertension. Respiratory: Denies Shortness of breath, cough, hemoptysis. GI: Denies abdominal pain, nausea, vomiting, diarrhea, constipation. : Denies dysuria, hematuria, flank pain, rectal bleeding. Neuro: Denies dizziness, blurry vision, weakness, syncope, headache or facial numbness. [facility] Medical History (Updated 03/12/21 @ 10:23 by Jennifer Mendoza) Alcohol abuse Anxiety Biliary colic (01/15/15) Drug abuse (10/20/15) random UDS during + opiods and Methadone. Hepatitis C infection 11/2015 > 1 million copies 09/2016 254K copies. 11/2016 Nl LFTs Infected dental carries (10/20/15) Rx for Abx at time of ED visit. 12/11/16 repeat episode: R sided facial pain. Augmentin x10d. Pancreatitis 2014 admitted for gallstone pancreatitis. had rainage of a pseudocyst. underwent cholecystectomy 12/2014 Scoliosis Tobacco use Surgical History section (~2007) [facility] [place] @ 32w twin delivery. ? uterine scar. 10/30/15 RCD@ 37w. M. Cholecystectomy (01/17/15) laparoscopic cholecystitis and cholelithiasis H/O surgical procedure a. through vertical incision Family History Mother Substance abuse opiods Alcohol abuse Essential hypertension Mental disorder Depression and anxiety Father Mental disorder Depression and anxiety Sister Mental disorder depression and anxiety Social History Smoking/Tobacco Use Status: Current every day Tobacco Type: cigarettes Smoking risk assessment performed?: Yes Alcohol Intake: current Alcohol Intake frequency: holidays/special occasions only Drug use: Daily Details: on methadone program for prior use history. Nannette/Jain: Anglican Do you feel safe at home: Yes Do you feel safe in your relationship?: Yes Exam Narrative Exam Narrative: Constitutional: Alert and oriented x3. Appears stated age. Normal body habitus. Head: Normocephalic, no trauma. Eyes: Pupils PERRLA, Red reflex noted, EOM's intact. Eyelids symmetrical without lesions, discharge, or swelling. ENT: Bilateral TM's WNL, External ear normal to inspection, no mastoid TTP, swelling, or erythema, Nasal turbinates WNL, no nasal discharge. Poor dentition, gingival erythema and swelling noted over #9. Small abscess palpated just proximally to tooth, no fluctuance palpated no appreciable drainable abscess noted, posterior pharynx WNL, no exudate. Chest: RRR, Normal S1, S2, distal pulses intact. Resp: Lungs clear to auscultation bilaterally, no wheezes, rales, or rhonchi. Musculoskeletal: Normal gait, 5/5 strength to all four extremities. Skin: No suspicious rashes or lesions. Capillary refill less than 2 sec. Neurologic: Cranial nerves II-XII intact. Alert and oriented x 3. DTR's intact. Hematologic/Lymphatic: No ecchymosis, no lymphadenopathy. Course Vital Signs Vital signs: Vital Signs Temperature 36.2 C L 03/12/21 09:57 Pulse 88 03/12/21 09:57 Respiratory Rate 18 03/12/21 09:57 Blood Pressure 121/69 03/12/21 09:57 Pulse Oximetry 96 03/12/21 09:57 Temperature 36.2 C L 03/12/21 09:57 Temperature Source Skin 03/12/21 09:57 Pulse 88 03/12/21 09:57 Respiratory Rate 18 03/12/21 09:57 Respiratory Effort 03/12/21 09:57 Blood Pressure 121/69 03/12/21 09:57 Blood Pressure Position Sitting 03/12/21 09:57 Pulse Oximetry 96 03/12/21 09:57 Oxygen Delivery Method Room Air 03/12/21 09:57 Oxygen Flow Rate 0 03/12/21 09:57 Pain Level 7 03/12/21 09:57 Comment 03/12/21 09:57
[2021-03-12] MEDS: Clindamycin 300 MG CAP PO (10:29)
[2021-03-12] MEDS: Benzocaine 20% Gel 30 GM JAR MM (10:29)
== END 2021-03-12 10:43 | disposition home or self-care (01) ==
PROVIDERS: Emergency Provider Registered Nurse Emergency; PCP Family Medicine
DX: K04.7 Periapical abscess without sinus (principal)
CPT/HCPCS: 99283

== ENCOUNTER 2021-03-21 04:16 | Outpatient (CLI) | payer MEDICAID, SELFPAY ==
--- NOTE | 2021-03-21 | DI.MRI_ITS ---
Exam(s) MR CERVICAL SPINE WO EXAM: MR CERVICAL SPINE WO CLINICAL HISTORY: NECK PAIN, M54.2 TECHNIQUE: Multiplanar multisequence MRI of the cervical spine was performed without intravenous con trast. 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 The re is failure of formation of the posterior elements of C1. The dens is superiorly position, at the level of the foramen magnum. These findings appear unchanged. There is stable mild kinking at the m edullary cervical junction with no apparent and impingement. Some reversal of the normal cervical lo rdosis is again noted centered at C6-7. There is bulging of this disc, mild. There is minimal disc bulging at C3-4 and C4-5. There is no significant central canal stenosis or neural foraminal narrowi ng at any level. No focal disc herniation is seen at any level. 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 Mild disc bulging at C6-7 without significa nt encroachment upon the neural foramen or central canal. DATA REPOSITORY:
== END 2021-03-21 04:36 ==
PROVIDERS: PCP Family Medicine; Visit Provider Family Medicine
DX: M50.223 Other cervical disc displacement at C6-C7 level (principal); Q67.5 Congenital deformity of spine
CPT/HCPCS: 72141

== ENCOUNTER 2021-03-24 03:42 | Outpatient (CLI) | payer MEDICAID, SELFPAY ==
[2021-03-25 09:09] LABS: Hepatitis B Surface Ab Positive (See Note)
[2021-03-25 09:18] LABS: Hepatitis B Surface Ag Negative (Negative)
[2021-03-25 10:42] LABS: HIV-1/2 Ag & Ab Screen Negative (Negative)
[2021-03-25 11:56] LABS: Hepatitis C Ab w Rflx HCV PCR Reactive (Negative)
[2021-03-26 14:22] LABS: HCV RNA Qualitative Detected (Undetected)
[2021-03-28 09:32] LABS: ALT 64 U/L (7-45); ActiTest Grade A1; ActiTest Interpretation minimal activity; ActiTest Score 0.31; Alpha-2-Macroglobulin 146 mg/dL (100 - 280); Apoliprotein A1 113 mg/dL (>=140); Bilirubin, Total 0.5 mg/dL (<=1.2); FibroTest Interpretation no fibrosis; FibroTest Stage F0; GGT 15 U/L (5 - 36); Haptoglobin 72 mg/dL (30 - 200)
[2021-04-01 11:24] LABS: HCV Genotype 3 (Undetected)
== END 2021-03-24 03:43 | disposition home or self-care (01) ==
LOC: LBO 03:42
PROVIDERS: PCP Family Medicine; Visit Provider Family Medicine
DX: B18.2 Chronic viral hepatitis C (principal)
CPT/HCPCS: 36415; 81596; 86706; 86803; 87340; 87389; 87522; 86704; 87521

== ENCOUNTER 2021-05-17 19:36 | Emergency (ER) | payer MEDICAID, SELFPAY ==
[2021-05-17 19:43] VITALS: BP 107/72; PULSE 100; RESP 18; TEMP 36.6; O2SAT 99
--- NOTE | 2021-05-17 19:57 | ED.GENADUL_ITS ---
Discharge Plan Disposition Patient Disposition: HOME Condition: Stable Discharge Details Clinical Impression: Pyelonephritis Primary Care Provider: Nazario Hoyos ED Provider: Jennifer Mendoza Home Meds and New Rx's Prescriptions: New cephalexin 500 mg tablet 500 mg PO BID 10 Days Qty: 20 RF: 0 No Action methadone 10 MG/ML concentrate 12 mg PO DAILY Qty: 70 RF: 0 acetaminophen [Tylenol] 325 mg Tablet 650 mg PO DAILY PRNRF: 0 ibuprofen 800 mg Tablet 800 mg PO Q8H PRNRF: 0 Discharge Instructions Instructions: Kidney Infection (ED) Additional Instructions: It appears that you have a bilateral kidney infection. We are going to give you the first dose of antibiotics in the IV. Please take the antibiotics twice daily for 10 days. Please finish the entire course of antibiotics even if you start feeling better. We will send you home with a few tablets for nausea medication. If you begin vomiting again and are unable to keep the medications down please return to the ER. Follow up with primary care provider in 3-5 days. Return to ED sooner if any worsening or concerns. Increase oral fluids. Please take Tylenol with food every 4-6 hours as needed for pain and swelling. Referrals: Nazario Hoyos [Primary Care Provider] - Medical Decision Making 30-year-old female presents to the ER chief complaint of flank pain, headache, fever, nausea. She states that she had a fever today prior to arrival of 100.2 did take Tylenol prior to arrival. Does have a past medical history of cholecystectomy, , hysterectomy, hepatitis C, cyst removal from the pancreas and bladder surgery. CBC shows white blood cell count 11.40, absolute neutrophils 9.5, CMP largely within normal limits glucose 119 magnesium 1.5, moderate blood and small leukoc ytes noted in the urine greater than 50 WBCs moderate epithelial cells culture is pending at this time. CT ABDOMEN PELVIS W 07/12/2020 10:18 AM FINDINGS: Lungs: The visualized lung bases are clear. Liver: Normal. No mass. Gallbladder and bile ducts: Cholecystectomy. Pancreas: Normal. No ductal dilation. Spleen: Normal. No splenomegaly. Adrenal glands: Normal. No mass. Kidneys and ureters: Wedge-shaped hypoperfusion and fat stranding in the posterolateral interpolar left kidney suggestive of acute pyelonephritis. Stable appearance of the rotated right kidney and nonobstructing upper renal calculi. The conglomerate measuring of the largest group of renal calculi measures 9 mm. No hydronephrosis. Similar wedge-shaped hypoperfusion findings are identified in the upper and lower poles of the rotated right kidney. No evidence for renal abscess. Stomach and bowel: Stable rectus diastasis/ventral hernia and stable appearance of the transverse colon and small bowel within but no evidence for bowel wall thickening or obstruction. No bowel distress. Appendix: Appendix is normal in caliber. No periappendiceal edema. No findings to suggest acute appendicitis. Intraperitoneal space: Unremarkable. No free air. No significant fluid collection. Vasculature: Unremarkable. No abdominal aortic aneurysm. Lymph nodes: Unremarkable. No enlarged lymph nodes. Urinary bladder: Unremarkable as visualized. Reproductive: Right ovarian cyst measuring 2.8 cm. Postoperative changes of hysterectomy. Normal left ovary. Bones/joints: Unremarkable. No acute fracture. Soft tissues: Unremarkable. IMPRESSION: 1. Bilateral wedge-shaped foci of hypoenhancement/hypoperfusion most suggestive of bilateral pyelonephritis. 2. Right ovarian simple 2.8 cm cyst. 3. Stable postoperative changes of cholecystectomy and hysterectomy. 4. Stable rectus diastasis and large ventral hernia with non distressed large and small bowel loops within. Thank you for allowing us to participate in the care of your patient. Dictated and Authenticated by: Beni Boone MD Discussed CT results with patient. At this time it appears the patient has bilateral pyelonephritis. She verbalized understanding. Patient was given 1 g ceftriaxone IV piggyback while here in the department. Patient was prescribed Keflex 500 mg twice daily x10 days and given Zofran to go. Discussed strict return instructions and home care she verbalized understanding. This text was generated using [employer] system, please disregard any oddities of phrase or misspellings. HPI General Mode of arrival: ambulatory . Date/Time Provider Initiated Documentation: 05/17/21 19:37 . Limitations to Documentation: no limitations . Information obtained by: patient and RN notes reviewed . HPI Narrative: 30-year-old female presents to the ER chief complaint of flank pain, headache, fever, nausea. She states that she had a fever today prior to arrival of 100.2 did take Tylenol prior to arrival. Does have a past medical history of cholecystectomy, , hysterectomy, hepatitis C, cyst removal from the pancreas and bladder surgery. Related Data Home Medications Medication Instructions Recorded Confirmed methadone 12 mg PO DAILY #70 mg 07/23/16 05/17/21 acetaminophen [Tylenol] 650 mg PO DAILY PRN 01/05/21 05/17/21 ibuprofen 800 mg PO Q8H PRN 01/05/21 05/17/21 cephalexin 500 mg PO BID 10 Days #20 tab 05/17/21 Previous Rx's Medication Instructions Recorded cephalexin 500 mg PO BID 10 Days #20 tab 05/17/21 Allergies Allergy/AdvReac Type Severity Reaction Status Date / Time No Known Allergies Allergy Unverified 05/17/21 20:09 General Stated Complaint: GenMedical JAISON: 3 Review of Systems Narrative: Constitutional: Negative for weight loss, alert and oriented, well groomed, normal body habitus, appears comfortable. HEENT: Denies trauma, blurry vision, nasal discharge, sore throat, trouble swallowing. Positive headaches Chest: Denies chest pain, irregular rhythm, hypertension. Positive palpitations Respiratory: Denies Shortness of breath, cough, hemoptysis. GI: Denies positive bilateral upper abdominal pain, diarrhea, nausea, denies constipation. : Denies hematuria, rectal bleeding. Positive dysuria and bilateral flank pain. Reports a UTI approximately 2 months ago. Neuro: Denies dizziness, blurry vision, weakness, syncope, or facial numbness. Hematologic: Denies easy bruising, intolerance to heat or cold, hair loss. [facility] Medical History (Updated 05/17/21 @ 20:59 by Jennifer Mendoza) Alcohol abuse Anxiety Biliary colic (01/15/15) Drug abuse (10/20/15) random UDS during + opiods and Methadone. Hepatitis C infection 11/2015 > 1 million copies 09/2016 254K copies. 11/2016 Nl LFTs Infected dental carries (10/20/15) Rx for Abx at time of ED visit. 12/11/16 repeat episode: R sided facial pain. Augmentin x10d. Pancreatitis 2014 admitted for gallstone pancreatitis. had rainage of a pseudocyst. underwent cholecystectomy 12/2014 Scoliosis Tobacco use Surgical History section (~2007) [facility] [place] @ 32w twin delivery. ? uterine scar. 10/30/15 RCD@ 37w. M. Cholecystectomy (01/17/15) laparoscopic cholecystitis and cholelithiasis H/O surgical procedure a. through vertical incision Family History Mother Substance abuse opiods Alcohol abuse Essential hypertension Mental disorder Depression and anxiety Father Mental disorder Depression and anxiety Sister Mental disorder depression and anxiety Social History Smoking/Tobacco Use Status: Current every day Tobacco Type: cigarettes Smoking risk assessment performed?: Yes Alcohol Intake: current Alcohol Intake frequency: holidays/special occasions only Drug use: Daily Details: on methadone program for prior use history. Nannette/Yazdanism: Yarsani Do you feel safe at home: Yes Do you feel safe in your relationship?: Yes Exam Narrative Exam Narrative: Constitutional: Alert and oriented x3. Appears stated age. Normal body habitus. Head: Normocephalic, no trauma. Eyes: Pupils PERRLA, Red reflex noted, EOM's intact. Eyelids symmetrical without lesions, discharge, or swelling. ENT: Bilateral TM's WNL, External ear normal to inspection, no mastoid TTP, swelling, or erythema, Nasal turbinates WNL, no nasal discharge. Normal dentition, Posterior pharynx WNL, no exudate. Chest: RRR, Normal S1, S2, distal pulses intact. Resp: Lungs clear to auscultation bilaterally, no wheezes, rales, or rhonchi. Abdomen: Soft, nondistended tenderness with palpation to the right and upper left quadrants. Positive bilateral CVA tenderness. Musculoskeletal: Normal gait, 5/5 strength to all four extremities. Skin: No suspicious rashes or lesions. Capillary refill less than 2 sec. Neurologic: Cranial nerves II-XII intact. Alert and oriented x 3. DTR's intact. Hematologic/Lymphatic: No ecchymosis, no lymphadenopathy. Course Vital Signs Vital signs: Vital Signs Temperature 36.6 C 05/17/21 19:43 Pulse 100 H 05/17/21 19:43 Respiratory Rate 18 05/17/21 19:43 Blood Pressure 107/72 05/17/21 19:43 Pulse Oximetry 99 05/17/21 19:43 Temperature 36.6 C 05/17/21 19:43 Temperature Source Temporal Artery Scan 05/17/21 19:43 Pulse 100 H 05/17/21 19:43 Respiratory Rate 18 05/17/21 19:43 Respiratory Effort Non-Labored 05/17/21 19:52 Respiratory Depth Normal 05/17/21 19:52 Respiratory Pattern Normal 05/17/21 19:52 Blood Pressure 107/72 05/17/21 19:43 Blood Pressure Position Sitting 05/17/21 19:43 Pulse Oximetry 99 05/17/21 19:43 Oxygen Delivery Method Room Air 05/17/21 19:43 Oxygen Flow Rate 0 05/17/21 19:43 Pain Level 8 05/17/21 19:43
--- NOTE | 2021-05-17 20:00 | DI.CT_ITS ---
Exam(s) CT ABDOMEN PELVIS W EXAM: CT ABDOMEN PELVIS W CLINICAL HISTORY: Bilateral flank pain, R/O Pyelonephritis,. TECHNIQUE: Imaging Protocol: Axial computed tomography images with coronal and sagittal reformatted images were created and reviewed CONTRAST MATERIAL: Intravenous: Omnipaque 100cc Oral: None COMPARISON: CT CT ABDOMEN PELVIS W from 07/12/2020 FINDINGS: VISUALIZED LUNG BASES: No nodules nor pleural effusions evident. ABDOMEN: There is no ascites. LIVER: There are no focal hepatic lesions evident. No dilatation of intrahepatic ducts. GALLBLADDER/BILIARY: The gallbladder is again noted be surgically absent. CBD is not dilated. PANCREAS: No evidence of pancreatic mass nor dilatation of the pancreatic duct. SPLEEN: Spleen size is upper normal. No intrasplenic lesions. Splenic and portal veins are patent. ADRENALS: There are no significant adrenal masses. KIDNEYS:Calculi again noted in the right kidney, unchanged in size and position. 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 No hydronephrosis nor hydroureter. In the opposite-left kidney (which is not malrotated) there is a wedge of abnormal cortical enhancement laterally consistent with probable pyelonephritis. No formed abscess. There is also enhancement of the wall of the left renal pelvis. Left ureter is not dilated. No obvious abnormality in the nondistended urinary bladder. . ABDOMINAL AORTA: Abdominal aorta is not enlarged. There is no para-aortic adenopathy. 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 Both common iliac arteries drain into independent inferior vena cava, 1 on the right and 1 on the left of the normal size abdominal aorta. The left IVC drains into the left renal vein. LYMPH NODES:There is no retroperitineal nor paraaortic adenopathy. ABDOMINAL WALL: Anterior abdominal hernia again noted. Contains some bowel loops but has a wide neck and the bowel loops do not appear edematous. No bowel obstruction. No free air. GI: There is no evidence of bowel obstruction, free air, nor abscess. PELVIS: GI: No evidence of appendicitis.No evidence of sigmoid diverticulitis. LYMPH NODES: There is no intrapelvic nor inguinal adenopathy. REPRODUCTIVE: The uterus is again noted be surgically absent. Left ovary unremarkable. There is a c yst in the right ovary which measures 3.5 x 2.5 cm. Small amount of fluid in the dependent aspect of the pelvis. URINARY BLADDER: No calculi nor obvious masses evident OSSEOUS: Findings consistent with sacroiliitis. No ankylosis of the SI joints. 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 There is some sys smooth erosion of the sacral canal noted. IMPRESSION: 1. Enhancement pattern of the left kidney suggest the presence of pound nephritis. There is no absce ss in the kidney evident at this time. No calculi seen in the left kidney. However, there is enhanc ement of the wall of the left renal pelvis noted. No hydronephrosis. 2. 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 Largest measuring approximately 8 millimeters. No evidence of abscess in the right kidney nor p erinephric fluid. 3. 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 Common iliac veins do not come together to form a common right side IVC. Instead, both common iliac arteries drain into independent IVCs, 1 to the right and 1 to the left of the abdominal aorta. The left IVC drains into the pre aortic left renal vein, entering this vein lef t of center. This developmental finding is important to keep in consideration encases patient ever r equires IVC filter placement. 4. Previous cholecystectomy and hysterectomy. 5. There is a 35 x 25 millimeter cyst in the right ovary. Tiny amount of fluid in the cul-de-sac. 6. Stable rectus diastasis with large ventral hernia with non edematous large and small bowel loops partially included. No bowel obstruction. RADIATION DOSE DELIVERED: 1,153.05mGy.cm Total DLP DATA REPOSITORY: All CT scans at this facility are submitted to the National Radiology Data Registry (NRDR) Dose Index Registry (DIR) with the [employer] (ACR). RADIATION OPTIMIZATION: All CT scans at this facility use at least one of these dose optimization te chniques: automated exposure control; mA and/or kV adjustment per patient size (includes targeted exa ms where dose is matched to clinical indication); or iterative reconstruction.
[2021-05-17 20:10] LABS: Source Nasal/Nares
[2021-05-17 20:10] LABS: Bilirubin Negative (Negative); Blood Moderate (Negative); Clarity Clear (Clear); Glucose Negative (Negative); Ketones Negative (Negative); Leukocyte Esterase Small (Negative); Nitrite Negative (Negative); Urobilinogen 0.2 EU/dL (Up TO 0.2)
[2021-05-17 20:11] LABS: Abs Immature Grans 0.04 10^3/uL (0.0-0.06); Absolute Basophil Count 0.02 10^3/uL (0.0-0.2); Absolute Lymphocyte Count 0.67 10^3/uL (1.2-3.4); Absolute Monocyte Count 0.81 10^3/uL (0.1-0.8); Absolute Neutrophil Count 9.85 10^3/uL (1.2-6.7); Basophils % 0.2; HCT 42.5 % (36.0-46.0); HGB 14.3 g/dL (11.2-15.7); Immature Grans % 0.4; Lymphocytes % 5.9; MCH 29.2 pg (27.0-33.0); MCHC 33.6 % (32.0-36.0); MCV 86.7 fL (80-95); MPV 8.4 fL (8.0-11.0); Monocytes % 7.1; Neutrophils % 86.4; Nucleated RBC 0 %; Platelet Count 187 10^3/uL (130-400); RDW 11.5 % (11.7-14.6); RDW-SD 36.4 fL
--- NOTE | 2021-05-17 20:12 | NUR.NOTE ---
To CT scan per cart with laser technician.Nursing Note:
[2021-05-17 20:18] LABS: Bacteria Many HPF (Negative); C & S Indicated? Yes; Crystals Negative HPF (Negative); Epithelial Cells Moderate HPF (Negative); Mucus Negative (Negative); Other Cells Few Transitional (Negative); RBC 0-2 HPF (0-2); WBC >50 HPF (0-5)
[2021-05-17] MEDS: Omnipaque 350 MG/ML 100 ML BTL IJ (20:20)
[2021-05-17 20:25] LABS: ALT 49 U/L (14-59); AST 30 U/L (15-37); Albumin 3.7 g/dL (3.4-5.0); Alkaline Phosphatase 49 U/L (46-116); Anion Gap 7.5 mmol/L (3-11); BUN 13 mg/dL (7-18); Bilirubin, Total 0.6 mg/dL (0.2-1.0); CO2 27.5 mmol/L (21.0-32.0); CREATININE 0.8 mg/dL (0.55-1.02); Calcium 9.1 mg/dL (8.5-10.1); Chloride 102 mmol/L (98-107); Glucose 119 mg/dL (74-106); Magnesium 1.5 mg/dL (1.8-2.4); Potassium 3.7 mmol/L (3.5-5.1); Sodium 137 mmol/L (136-145); Total Protein 8.2 g/dL (6.4-8.2)
[2021-05-17] MEDS: Normal Saline 1,000 ML 1000 ML IV (20:30)
--- NOTE | 2021-05-17 20:45 | DI.VRAD_ITS ---
PROCEDURE INFORMATION: Exam: CT Abdomen And Pelvis With Contrast Exam date and time: 05/17/2021 8:03 PM Age: 30 years old Clinical indication: Abdominal pain; Flank; Other: Bilateral; Prior surgery; Surgery date: 6+ months; Surgery type: Gb removed, pancreatic cyst removed multiple bladder surg TECHNIQUE: Imaging protocol: Computed tomography of the abdomen and pelvis with contrast. Radiation optimization: All CT scans at this facility use at least one of these dose optimization techniques: automated exposure control; mA and/or kV adjustment per patient size (includes targeted exams where dose is matched to clinical indication); or iterative reconstruction. Contrast material: OMNIPAQUE 350; Contrast volume: 100 ml; Contrast route: INTRAVENOUS (IV); COMPARISON: CT ABDOMEN PELVIS W 07/12/2020 10:18 AM FINDINGS: Lungs: The visualized lung bases are clear. Liver: Normal. No mass. Gallbladder and bile ducts: Cholecystectomy. Pancreas: Normal. No ductal dilation. Spleen: Normal. No splenomegaly. Adrenal glands: Normal. No mass. Kidneys and ureters: Wedge-shaped hypoperfusion and fat stranding in the posterolateral interpolar left kidney suggestive of acute pyelonephritis. Stable appearance of the rotated right kidney and nonobstructing upper renal calculi. The conglomerate measuring of the largest group of renal calculi measures 9 mm. No hydronephrosis. Similar wedge-shaped hypoperfusion findings are identified in the upper and lower poles of the rotated right kidney. No evidence for renal abscess. Stomach and bowel: Stable rectus diastasis/ventral hernia and stable appearance of the transverse colon and small bowel within but no evidence for bowel wall thickening or obstruction. No bowel distress. Appendix: Appendix is normal in caliber. No periappendiceal edema. No findings to suggest acute appendicitis. Intraperitoneal space: Unremarkable. No free air. No significant fluid collection. Vasculature: Unremarkable. No abdominal aortic aneurysm. Lymph nodes: Unremarkable. No enlarged lymph nodes. Urinary bladder: Unremarkable as visualized. Reproductive: Right ovarian cyst measuring 2.8 cm. Postoperative changes of hysterectomy. Normal left ovary. Bones/joints: Unremarkable. No acute fracture. Soft tissues: Unremarkable. IMPRESSION: 1. Bilateral wedge-shaped foci of hypoenhancement/hypoperfusion most suggestive of bilateral pyelonephritis. 2. Right ovarian simple 2.8 cm cyst. 3. Stable postoperative changes of cholecystectomy and hysterectomy. 4. Stable rectus diastasis and large ventral hernia with non distressed large and small bowel loops within. Dictated and Authenticated by: Beni Boone MD. Ordering:RICHARD Rodriguez MD
[2021-05-17 21:02] LABS: COVID-19 PCR Negative (Negative)
[2021-05-17 21:27] VITALS: O2SAT 99
[2021-05-17 21:28] VITALS: BP 112/71; PULSE 92; O2SAT 100
[2021-05-17] MEDS: Ondansetron O.D.T. 4 MG TABEF, 3 TABS/BTL PO (21:29)
[2021-05-17] MEDS: Cephalexin 500 MG CAP, 4 CAPS/BTL PO (21:29)
[2021-05-17 21:35] VITALS: TEMP 36.5
== END 2021-05-17 21:40 | disposition home or self-care (01) ==
PROVIDERS: Emergency Provider Registered Nurse Emergency; PCP Family Medicine
DX: N10 Acute pyelonephritis (principal); R51.9 Headache, unspecified; R11.0 Nausea; Z20.822 Contact with and (suspected) exposure to COVID-19
CPT/HCPCS: 36415; 80053; 81025; 87077; 87635; 96360; 99285; 74177; 81003; 81015; 83735; 85025; 87086; 87186; 99284; J3490

== ENCOUNTER 2021-07-25 16:02 | Emergency (ER) | payer MEDICAID, SELFPAY ==
--- NOTE | 2021-07-25 16:15 | RT.EKG_ITS ---
APPROVED REPORT Exam: Resting ECG Reason for Exam: chest tight Patient Location: E HR:99 bpm ECG Measurements Heart Rate 99 AXIS ID 129 P 34 QRSd 93 QRS 38 QT 353 T 21 QTc 453 Conclusion Sinus rhythm...normal P axis, V-rate 60- 99
[2021-07-25 16:17] VITALS: BP 112/70; PULSE 99; RESP 18; TEMP 37.2; O2SAT 94
[2021-07-25 16:25] LABS: Bilirubin Negative (Negative); Blood Small (Negative); Clarity Sl Cloudy (Clear); Glucose Negative (Negative); Ketones 15 mg/dL (Negative); Leukocyte Esterase Moderate (Negative); Nitrite Positive (Negative); Urobilinogen 0.2 EU/dL (Up TO 0.2)
[2021-07-25 16:32] LABS: Bacteria Many HPF (Negative); C & S Indicated? Yes; Casts Negative LPF (Negative); Crystals Negative HPF (Negative); Epithelial Cells Few HPF (Negative); Mucus Negative (Negative); WBC 20-50 HPF (0-5)
--- NOTE | 2021-07-25 16:33 | DI.RAD_ITS ---
Exam(s) XR PORTABLE CHEST AP EXAM: XR PORTABLE CHEST AP CLINICAL HISTORY: chest tightness. TECHNIQUE: 2D digital imaging was performed. COMPARISON: CR XR CHEST 2V PA LATERAL from 04/12/2019 FINDINGS: Heart size is upper normal. The mediastinum is not widened. Lungs are clear. No infiltrates nor obvious pleural effusions. IMPRESSION: No acute pulmonary findings on this single AP portable view of the chest. DATA REPOSITORY: RADIATION DOSE DELIVERED: All CT scans at this facility use at least one of these dose optimization techniques: automated exposure control; mA and/or kV adjustment per patient size (includes targeted e xams where dose is matched to clinical indication); or iterative reconstruction.
--- NOTE | 2021-07-25 16:45 | DI.CT_ITS ---
Exam(s) CT RENAL COLIC WO EXAM: CT RENAL COLIC WO CLINICAL HISTORY: bilateral flank pain. TECHNIQUE: Imaging Protocol: Axial computed tomography images with coronal and sagittal reformatted images were created and reviewed CONTRAST MATERIAL: Intravenous: none Oral: None COMPARISON: CT CT ABDOMEN PELVIS W from 05/17/2021 FINDINGS: VISUALIZED LUNG BASES: No nodules nor pleural effusions evident. There are mild increased markings i n the posterior basal segment of the left lower lobe. These have benign appearance. ABDOMEN: There is no ascites. LIVER: There are no obvious focal hepatic lesions evident of this noninfused study. GALLBLADDER/BILIARY: The gallbladder surgically absent. CBD is not dilated. PANCREAS: No evidence of pancreatic mass nor dilatation of the pancreatic duct. SPLEEN: Spleen is not enlarged. No obvious intrasplenic lesions. ADRENALS: There are no significant adrenal masses. KIDNEYS:Bilateral nephrolithiasis is again noted. 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 There are no calculi in the nondistended ureters nor within th e urinary bladder. ABDOMINAL AORTA: Abdominal aorta is not enlarged. Double IVC again noted, previously documented. Le ft IVC drains into the pre aortic left renal vein. LYMPH NODES: There is no retroperitoneal nor paraaortic adenopathy. ABDOMINAL WALL: Rectus diastasis again noted with anterior abdominal hernia. Presently does not cont ain bowel loops therein GI: There is no evidence of bowel obstruction, free air, nor abscess. PELVIS: LYMPH NODES: There is no intrapelvic nor inguinal adenopathy. GI: No evidence of appendicitis.No evidence of sigmoid diverticulitis. URINARY BLADDER: No calculi nor obvious masses evident REPRODUCTIVE: Uterus is again noted be surgically absent. No adnexal masses. No free fluid. OSSEOUS: No significant osseous lesions. Increased density on the iliac side of both SI joints is noted consistent with sacroiliitis. There i s no ankylosis. There is expansion of the sacral canal. This appears to be related to an intra sacr al meningocele. There is again noted an element of smooth erosion of the sacral canal but no dehisce nce of the anterior aspect of the sacrum nor extension of this finding into the presacral region. IMPRESSION: 1. Bilateral nephrolithiasis. No obstructing calculi in the ureters and no calculi seen in the nondi stended urinary bladder. Right kidney is again noted be malrotated. 2. Gallbladder surgically absent. Biliary tree is not dilated. 3. Double IVC again noted. The left IVC drains into the left renal vein. 4. 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 No extension into the presacral region. 5. The uterus is again noted be surgically absent. There are no abnormal adnexal masses Sacroiliitis evident. RADIATION DOSE DELIVERED: 978.54mGy.cm Total DLP DATA REPOSITORY: All CT scans at this facility are submitted to the National Radiology Data Registry (NRDR) Dose Index Registry (DIR) with the [employer] (ACR). RADIATION OPTIMIZATION: All CT scans at this facility use at least one of these dose optimization te chniques: automated exposure control; mA and/or kV adjustment per patient size (includes targeted exa ms where dose is matched to clinical indication); or iterative reconstruction.
--- NOTE | 2021-07-25 16:46 | ED.GENADUL_ITS ---
Discharge Plan Disposition Patient Disposition: HOME Condition: Stable Discharge Details Clinical Impression: Urinary tract infection Primary Care Provider: Nazario Hoyos ED Provider: Esther Pérez Home Meds and New Rx's Prescriptions: New cephalexin 500 mg tablet 500 mg PO QID 5 Days Qty: 20 RF: 0 phenazopyridine [Pyridium] 100 mg tablet 100 mg PO TID PRN (Reason: pain) Qty: 5 RF: 0 Continued methadone 10 MG/ML concentrate 15 mg PO DAILY Qty: 70 RF: 0 acetaminophen [Tylenol] 325 mg Tablet 650 mg PO DAILY PRNRF: 0 ibuprofen 800 mg Tablet 800 mg PO Q8H PRNRF: 0 Discharge Instructions Instructions: Urinary Tract Infection in Women (ED) Additional Instructions: Your imaging and labs today are significant for urinary tract infection. You do have kidney stones but these remain in the kidney do not appear to be causing any obstruction. Please encourage hydration. May Tylenol and/or ibuprofen as needed for discomfort or fevers. Please take the antibiotics prescribed. Even if symptoms improve, please take the entire course. You may use the Pyridium as prescribed to help with your urinary discomfort. Please follow-up with primary care next week for reevaluation. If you develop any new or worsening symptoms please seek care urgently once again. Your COVID-19 testing is pending. Please quarantine until these results have returned. Please consider vaccine further. Referrals: Nazario Hoyos [Primary Care Provider] - Discharge Data Discharge Date/Time-TO BE ENTERED AT DEPARTURE: 07/25/21 19:34 Medical Decision Making Patient is a pleasant 30 year old female presenting today with c/c of dysurea, frequency, bilateral flank pain, fevers. States that she became ill this AM. Reports hx of pyelonephritis, UTI and nephrolithiasis. States she has never had symptoms when passing a stone, unclear if her discomfort is associated with this. States that she became febrile during the day, T max 103 with temporal scanner. Reports when this came on she experienced, burning and tingling in her chest. Denies SOB, cough, CP. Denies change in bowel habits. S/p hysterecomy. Denies vaginal discharge. Took APAP and NSAID prior to arrival, currently afebrile and feeling improved. Patien quesions if she had more mild, not completely noticed symptoms, one week ago with dysurea and frequency. On exam, patient appears nontoxic. Vital signs significant for tachycardia with a heart rate of 99. Lungs are clear, normal cardiac exam. No lower extremity swelling, no calf tenderness. Abdomen is benign. She has discomfort with percussion over bilateral CVA. UA is concerning for infection, patient is nitrite positive, moderate leukocyte esterase and many bacteria. Reviewed previous cultures, patient has been pansensitive historically. Will begin on Rocephin. Primarily concern for pyelonephritis. However, with history of stones I do feel that imaging would be appropriate. Will obtain baseline labs to assess kidney function. Will give hydration and reassess. She is not endorsing symptoms associated with pulmonary embolism such as shortness of breath, difficulty breathing. Patient is not on any hormonal supplements. As she did experience the chest burning will about evaluate for potential ACS. Spent a few hours since this occurred, I do feel that one troponin would be appropriate patient relates she did not have any exertional pain and pain seems to be more associated with the onset of fever and resolution with the dissolution of his fever. EKG was reviewed by Dr. Gabriel. Patient is in sinus rhythm heart rate of 99. No acute ischemic changes noted. Labs reviewed. Patient does have a white count of 14. Lactate within normal limits. Kidney function normal. Troponin within normal limits. No significant abnormalities on the CMP. Covid testing will be sent out and is currently pending. Patient requesting APAP and NSAID. States it has been >6 hrs since her last dose. FINDINGS: Lungs: Lung bases are unremarkable. Liver: Hepatic steatosis. Gallbladder and bile ducts: Status post cholecystectomy. Pancreas: No mass or peripancreatic edema. Spleen: Mild splenomegaly. Adrenal glands: No adrenal nodule. Kidneys and ureters: Tiny left renal medullary calculi. 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 There are stones within the right upper pole. No definite ureteral calculi. Mild fullness of renal pelves without significant hydronephrosis or change from the prior study. No perinephric stranding. Stomach and bowel: Stomach is grossly unremarkable. Moderate fecal loading. No small or large bowel dilatation. No definite bowel wall thickening. Appendix: No evidence of appendicitis. Intraperitoneal space: No free air or free fluid. Vasculature: No abdominal aortic aneurysm. Lymph nodes: No significant adenopathy. Urinary bladder: No bladder stone. No definite bladder wall thickening. Reproductive: Status post hysterectomy. Bones/joints: No significant bony or joint space abnormality. Soft tissues: Tiny umbilical hernia. IMPRESSION: 1. No acute findings. 2. Bilateral nephrolithiasis. FINDINGS: Lungs: Lungs are clear without consolidation. Pulmonary suma: Unremarkable contours. Pleural spaces: No pleural effusion. No pneumothorax. Heart/Mediastinum: Unremarkable contours. No cardiomegaly. Bones/joints: Unremarkable. Intraperitoneal space: Visualized upper abdomen is unremarkable. IMPRESSION: No acute findings. Discussed findings with the patient. She has no hydro, no obstructing stone. Will treat for UTI. Encouraged hydration. Discussed pain management, she has done well with pyridium in the past. Will refill. Strict return precautions discussed. Advised close f/u with PCP. All of her questions and concerns were addresed, she is in agreement with this plan. HPI General Mode of arrival: ambulatory . Date/Time Provider Initiated Documentation: 07/25/21 16:08 . Limitations to Documentation: no limitations . Information obtained by: patient and RN notes reviewed . History of Present Illness 30 year old F presents to the emergency department with the chief complaint of flank pain, chest hot, bladder pain, described as moderate, with intensity rated at 7. Quality is described as aching, and is localized to the back (bilateral flank). Patient reports no radiation. Patient started experiencing this hour(s) (began this AM) and it has been constant. Medication improves symptom(s), (chest sensation resolved as fever improved after APAP and NSAID) No exacerbating factors reported . Patient notes fever/chills; denies chest pain (no pain, had, burning and tingling), headaches, loss of appetite, nausea/vomiting, rash and shortness of breath. Patient did receive the following treatments prior to arrival, NSAID Related Data Home Medications Medication Instructions Recorded Confirmed methadone 15 mg PO DAILY #70 mg 07/23/16 07/25/21 acetaminophen [Tylenol] 650 mg PO DAILY PRN 01/05/21 07/25/21 ibuprofen 800 mg PO Q8H PRN 01/05/21 07/25/21 cephalexin 500 mg PO QID 5 Days #20 tab 07/25/21 phenazopyridine [Pyridium] 100 mg PO TID PRN #5 tab 07/25/21 Previous Rx's Medication Instructions Recorded cephalexin 500 mg PO QID 5 Days #20 tab 07/25/21 phenazopyridine [Pyridium] 100 mg PO TID PRN #5 tab 07/25/21 Allergies Allergy/AdvReac Type Severity Reaction Status Date / Time No Known Allergies Allergy Unverified 05/17/21 20:09 General Stated Complaint: GenMedical JAISON: 3 Review of Systems Constitutional Constitutional: Reports as per HPI, Denies chills and Denies headache(s) ENT Ears, Nose, Mouth, and Throat: Denies dizziness and Denies headache(s) Cardiovascular Cardiovascular: Reports as per HPI, Denies chest pain, Denies chest pain with activity, Denies syncope, Denies radiating jaw, neck or arm pain, Denies dyspnea, Denies dyspnea on exertion and Reports other (experienced chest burning and tingling) Respiratory Respiratory: Reports as per HPI, Denies chest congestion, Denies cough, Denies pain on inspiration, Denies pain with cough, Denies dyspnea, Denies dyspnea on exertion and Denies wheezing Gastrointestinal Gastrointestinal: Reports as per HPI, Denies abdominal pain, Denies diarrhea, Denies nausea and Denies vomiting Genitourinary Genitourinary: Reports as per HPI, Reports amenorrhea (s/p hysterectomy), Reports dysuria, Reports flank pain, Reports urinary urgency and Denies vaginal discharge Musculoskeletal Musculoskeletal: Reports as per HPI Integumentary/Breasts Skin/Breast: Reports as per HPI and Denies rash Neurologic Neurologic: Reports as per HPI, Denies dizziness, Denies syncope and Denies headache(s) Allergic/Immunologic Allergic/Immunologic: Denies wheezing [facility] Medical History (Updated 07/25/21 @ 19:20 by RAJESH Trammell) Alcohol abuse Anxiety Biliary colic (01/15/15) Drug abuse (10/20/15) random UDS during + opiods and Methadone. Hepatitis C infection 11/2015 > 1 million copies 09/2016 254K copies. 11/2016 Nl LFTs Infected dental carries (10/20/15) Rx for Abx at time of ED visit. 12/11/16 repeat episode: R sided facial pain. Augmentin x10d. Pancreatitis 2014 admitted for gallstone pancreatitis. had rainage of a pseudocyst. underwent cholecystectomy 12/2014 Scoliosis Tobacco use Surgical [place] [facility] [place]. ? uterine scar. 10/30/15 RCD@ 37w. M. Cholecystectomy (01/17/15) laparoscopic cholecystitis and cholelithiasis H/O surgical procedure a. through vertical incision Family History Mother Substance abuse opiods Alcohol abuse Essential hypertension Mental disorder Depression and anxiety Father Mental disorder Depression and anxiety Sister Mental disorder depression and anxiety Social History Smoking/Tobacco Use Status: Current every day Tobacco Type: cigarettes Smoking risk assessment performed?: Yes Alcohol Intake: current Alcohol Intake frequency: holidays/special occasions only Drug use: Daily Details: on methadone program for prior use history. Nannette/Spiritism: Baptism Do you feel safe at home: Yes Do you feel safe in your relationship?: Yes Exam Const General: cooperative, healthy appearing, comfortable, no acute distress and well developed Nutritional Appearance: average body habitus and well nourished Orientation: alert, awake and oriented x3 HENMT Head: normal to inspection Mouth: moist mucous membranes Chest Chest: normal inspection of the chest, normal palpation of entire chest wall and no crepitus Resp Effort & Inspection: normal respiratory effort, able to speak in complete sent ences and no respiratory distress Auscultation: clear to auscultation bilaterally, no rales, no rhonchi and no wheezes Cardio Rate: regular rate Rhythm: regular rhythm Heart Sounds: S1 normal and S2 normal GI Inspection: normal to inspection, no edema and non-distended Palpation: soft, no hepatosplenomegaly, not firm, no guarding, not rigid and nontender Auscultation: normal bowel sounds Back/Spine/Pelvis Back: CVA tenderness (bilateral tenderness) Thoracic/Lumbar Spine: thoracic and lumbar spine normal to inspection Skin General skin exam: no rashes or lesions noted Trauma: no lacerations or abrasions Neuro General: patient alert, patient awake and patient oriented x3 Cognition: normal cognition Speech: speech normal Gait: normal gait Extrem General: normal to inspection, capillary refill normal, no pedal edema, no calf tenderness and normal gait Psych Appearance: grossly normal and well kempt Mental Status: mental status grossly normal Speech and Movement: speech and movement normal Course Vital Signs Vital signs: Vital Signs Temperature 37.2 C 07/25/21 16:17 Pulse 99 H 07/25/21 16:17 Respiratory Rate 18 07/25/21 16:17 Blood Pressure 112/70 07/25/21 16:17 Pulse Oximetry 94 07/25/21 16:17 Temperature 37.2 C 07/25/21 16:17 Temperature Source Oral 07/25/21 16:17 Pulse 99 H 07/25/21 16:17 Respiratory Rate 18 07/25/21 16:17 Respiratory Effort Non-Labored 07/25/21 16:33 Blood Pressure 112/70 07/25/21 16:17 Blood Pressure Position Supine 07/25/21 16:17 Pulse Oximetry 94 07/25/21 16:17 Oxygen Delivery Method Room Air 07/25/21 16:17 Oxygen Flow Rate 0 07/25/21 16:17 Pain Level 7 07/25/21 16:17 Lab/Test Results Lab/Test Results: 07/25/21 16:20 Urine - Reflex from Ua Urine Culture - Pending Laboratory Tests Range/Units 07/25/21 16:20 Urine Color (Yellow) Yellow Urine Clarity (Clear) Sl Cloudy Urine pH (5-8) 6.0 Ur Specific [place] (1.005-1.025) 1.010 Urine Protein (Negative) mg/dL Negative Urine Ketones (Negative) mg/dL 15 H Urine Blood (Negative) Small H Urine Nitrite (Negative) Positive H Urine Bilirubin (Negative) Negative Urine Urobilinogen (Up TO 0.2) EU/dL 0.2 Ur Leukocyte Esterase (Negative) Moderate H Urine RBC (0-2) HPF 3-5 H Urine WBC (0-5) HPF 20-50 H Ur Epithelial Cells (Negative) HPF Few Urine Crystals (Negative) HPF Negative Urine Bacteria (Negative) HPF Many Urine Casts (Negative) LPF Negative Urine Mucus (Negative) Negative Ur Culture Indicated? Yes Urine Glucose (Negative) mg/dL Negative
[2021-07-25 17:11] LABS: Abs Immature Grans 0.05 10^3/uL (0.0-0.06); Absolute Basophil Count 0.04 10^3/uL (0.0-0.2); Absolute Monocyte Count 0.97 10^3/uL (0.1-0.8); Basophils % 0.3; HCT 39.4 % (36.0-46.0); HGB 13.5 g/dL (11.2-15.7); Immature Grans % 0.3; Lactate 0.7 mmol/L (0.6-1.4); Lymphocytes % 5.6; MCH 28.9 pg (27.0-33.0); MCHC 34.3 % (32.0-36.0); MCV 84.4 fL (80-95); MPV 8.2 fL (8.0-11.0); Monocytes % 6.6; Neutrophils % 87.2; Nucleated RBC 0 %; Platelet Count 251 10^3/uL (130-400); RBC 4.67 10^6/uL (3.93-5.22); RDW 11.8 % (11.7-14.6); RDW-SD 35.9 fL
[2021-07-25 17:12] LABS: Absolute Lymphocyte Count 0.82 10^3/uL (1.2-3.4); Absolute Neutrophil Count 12.82 10^3/uL (1.2-6.7)
[2021-07-25 17:28] LABS: ALT 37 U/L (14-59); AST 20 U/L (15-37); Albumin 3.8 g/dL (3.4-5.0); Alkaline Phosphatase 42 U/L (46-116); Anion Gap 10.3 mmol/L (3-11); BUN 13 mg/dL (7-18); Bilirubin, Total 0.9 mg/dL (0.2-1.0); CO2 26.7 mmol/L (21.0-32.0); CREATININE 0.9 mg/dL (0.55-1.02); Calcium 9.1 mg/dL (8.5-10.1); Chloride 103 mmol/L (98-107); Glucose 107 mg/dL (74-106); Magnesium 1.8 mg/dL (1.8-2.4); Potassium 3.5 mmol/L (3.5-5.1); Sodium 140 mmol/L (136-145); Total Protein 8.4 g/dL (6.4-8.2)
[2021-07-25 17:30] LABS: Troponin I < 0.05 ng/mL (<0.06)
[2021-07-25] MEDS: cefTRIAXone 1 GM/50 ML BAG IVPB (17:59)
[2021-07-25] MEDS: Normal Saline 1,000 ML 1000 ML IV (17:59)
[2021-07-25] MEDS: Acetaminophen 500 MG TAB 1000 MG PO (18:11)
[2021-07-25] MEDS: Ibuprofen 600 MG TAB PO (18:11)
--- NOTE | 2021-07-25 19:08 | DI.VRAD_ITS ---
PROCEDURE INFORMATION: Exam: CT Abdomen And Pelvis Without Contrast Exam date and time: 07/25/2021 4:49 PM Age: 30 years old Clinical indication: Abdominal pain; Patient HX: Bilateral flank pain TECHNIQUE: Imaging protocol: Computed tomography of the abdomen and pelvis without contrast. Total images: [id number] COMPARISON: CT ABDOMEN PELVIS W 05/17/2021 8:22 PM FINDINGS: Lungs: Lung bases are unremarkable. Liver: Hepatic steatosis. Gallbladder and bile ducts: Status post cholecystectomy. Pancreas: No mass or peripancreatic edema. Spleen: Mild splenomegaly. Adrenal glands: No adrenal nodule. Kidneys and ureters: Tiny left renal medullary calculi. 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 There are stones within the right upper pole. No definite ureteral calculi. Mild fullness of renal pelves without significant hydronephrosis or change from the prior study. No perinephric stranding. Stomach and bowel: Stomach is grossly unremarkable. Moderate fecal loading. No small or large bowel dilatation. No definite bowel wall thickening. Appendix: No evidence of appendicitis. Intraperitoneal space: No free air or free fluid. Vasculature: No abdominal aortic aneurysm. Lymph nodes: No significant adenopathy. Urinary bladder: No bladder stone. No definite bladder wall thickening. Reproductive: Status post hysterectomy. Bones/joints: No significant bony or joint space abnormality. Soft tissues: Tiny umbilical hernia. IMPRESSION: 1. No acute findings. 2. Bilateral nephrolithiasis. Dictated and Authenticated by: Pradeep Buckley MD. Ordering:CARMEN Santana MD
--- NOTE | 2021-07-25 19:09 | DI.VRAD_ITS ---
PROCEDURE INFORMATION: Exam: XR Chest Exam date and time: 07/25/2021 6:41 PM Age: 30 years old Clinical indication: Patient HX: Chest tightness TECHNIQUE: Imaging protocol: XR of the chest. Views: 1 view. Total images: 1 COMPARISON: CR XR CHEST 2V PA LATERAL 04/12/2019 1:39 PM FINDINGS: Lungs: Lungs are clear without consolidation. Pulmonary suma: Unremarkable contours. Pleural spaces: No pleural effusion. No pneumothorax. Heart/Mediastinum: Unremarkable contours. No cardiomegaly. Bones/joints: Unremarkable. Intraperitoneal space: Visualized upper abdomen is unremarkable. IMPRESSION: No acute findings. Dictated and Authenticated by: Pradeep Buckley MD. Ordering:CARMEN Santana MD
[2021-07-25] MEDS: Phenazopyridine 100 MG TAB PO (19:33)
[2021-07-25 19:34] VITALS: RESP 16
[2021-07-25 19:36] VITALS: BP 112/70; PULSE 99; RESP 16; TEMP 37.2; O2SAT 94
[2021-07-27 10:31] LABS: COVID-19 RT-PCR UVMMC Result Negative (Negative)
--- NOTE | 2021-07-27 17:18 | NUR.NOTE ---
negative covid result left on message machine. Nursing Note:
== END 2021-07-25 19:34 | disposition home or self-care (01) ==
PROVIDERS: Emergency Provider Physician Assistant; PCP Family Medicine
DX: N39.0 Urinary tract infection, site not specified (principal); B96.20 Unspecified Escherichia coli [E. coli] as the cause of diseases classified elsewhere; R07.89 Other chest pain; N20.0 Calculus of kidney; Z87.442 Personal history of urinary calculi; R00.0 Tachycardia, unspecified
CPT/HCPCS: 80053; 81025; 87077; 93005; 96361; 96365; 99285; U0003; 71045; 74176; 81003; 81015; 83605; 83735; 84484; 85025; 87086; 87186; 93010; J0696

== ENCOUNTER 2021-11-28 10:29 | Emergency (ER) | payer MEDICAID, SELFPAY ==
[2021-11-28 10:36] VITALS: BP 123/86; PULSE 76; RESP 20; TEMP 36.2; O2SAT 98
--- NOTE | 2021-11-28 10:45 | DI.CT_ITS ---
Exam(s) CT RENAL COLIC WO EXAM: CT RENAL COLIC WO CLINICAL HISTORY: L flank pain. TECHNIQUE: Imaging Protocol: Axial computed tomography images with coronal and sagittal reformatted images were created and reviewed. COMPARISON: CT CT RENAL COLIC WO from 07/25/2021 FINDINGS: ABDOMEN: Lung Bases: Atelectasis is seen in the lung bases. Liver: Normal density. No measurable mass. Gallbladder and biliary tract: Status post cholecystectomy. Pancreas: Normal density, no abnormal calcifications or inflammatory process. Spleen: Normal. Kidneys: Normal size, contour and axis.Bilateral nephrolithiasis. No ureterolithiasis or hydronephro sis. No masses seen. 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 Adrenal glands: No mass is seen. Lymph nodes: Within normal limits. Abdominal Aorta: Abdominal portion non-dilated. PELVIS: Bladder:Symmetric distention, no gross wall thickening. Bowel: No obstruction or bowel wall thickening. Appendix is unremarkable. Peritoneal cavity: No ascites, collection or mesenteric inflammatory response. No free air. Reproductive organs: There is a 4 cm left ovarian cyst. Bones: Unchanged compared to the prior examination. Soft Tissues: Unchanged compared to the prior examination. IMPRESSION: 1. Bilateral nephrolithiasis. No ureterolithiasis or hydronephrosis. 2. Stable chronic abdominal pelvic findings. 3. Results of this exam have been verbally communicated with provider. RADIATION DOSE DELIVERED: 743.59mGy.cm Total DLP DATA REPOSITORY: All CT scans at this facility are submitted to the National Radiology Data Registry (NRDR) Dose Index Registry (DIR) with the [employer] ([employer]). RADIATION OPTIMIZATION: All CT scans at this facility use at least one of these dose optimization te chniques: automated exposure control; mA and/or kV adjustment per patient size (includes targeted exa ms where dose is matched to clinical indication); or iterative reconstruction.
[2021-11-28 10:49] LABS: Bilirubin Negative (Negative); Blood Negative (Negative); Clarity Clear (Clear); Glucose Negative (Negative); Ketones Negative (Negative); Leukocyte Esterase Negative (Negative); Nitrite Negative (Negative); Specific Gravity >= 1.030 (1.005-1.025); Urobilinogen 0.2 EU/dL (Up TO 0.2); pH 6.5 (5-8)
--- NOTE | 2021-11-28 10:52 | ED.GENADUL_ITS ---
Discharge Plan Disposition Patient Disposition: HOME Condition: Improving Discharge Details Clinical Impression: Urinary tract infection Primary Care Provider: Nazario Hoyos ED Provider: Pradeep Alicea Home Meds and New Rx's Prescriptions: New cephalexin 500 mg capsule 500 mg PO TID 7 Days Qty: 21 0RF Continued methadone 10 MG/ML concentrate 15 mg PO DAILY Qty: 70 0RF acetaminophen [Tylenol] 325 mg Tablet 650 mg PO DAILY PRN0RF ibuprofen 800 mg Tablet 800 mg PO Q8H PRN0RF Discharge Instructions Instructions: Urinary Tract Infection in Women (ED) Additional Instructions: As you discussed we are empirically treating you for a urinary tract infection. You were given an IV dose of antibiotics and may start description this evening or tomorrow morning. The prescription until finished. Return for reevaluation to develop a fever, pain, or any other acute concerns. May continue Tylenol and ibuprofen as needed for discomfort. Please follow-up with regular doctor if not improving in 5 to 7 days time. Discharge Data Discharge Date/Time-TO BE ENTERED AT DEPARTURE: 11/28/21 12:53 Medical Decision Making 31-year-old female with a history of recurrent urinary infections presents with 2 days of left flank pain that is been dull, achy, constant similar to previous episodes of ascending urinary tract infections. States she has had quick e scalations of ascending UTIs in the past and is here hoping to catch it early. She will report a new sexual partner but no vaginal pain, no discharge or lesions. She arrives ER afebrile and well-appearing. Screening laboratories and urinalysis obtained. These are unrevealing. Differential diagnosis would include renal colic or other inflammatory intra- abdominal process and patient referred for Noncontrast CT scan which is reassuring. I do feel the clinical presentation is consistent with early urinary tract infection. Patient given a dose of ceftriaxone and I will place on Keflex. She understands indications to seek repeat evaluation. We discussed that we are in treating for UTI and she understands and agrees with the decision making. HPI General Mode of arrival: ambulatory . Date/Time Provider Initiated Documentation: 11/28/21 10:38 . Limitations to Documentation: no limitations . Information obtained by: patient . History of Present Illness 31 year old F presents to the emergency department with the chief complaint of Left flank pain for 2 days, described as moderate and similar to prior episodes, Quality is described as aching and dull, and is localized to the back and left. Patient reports no radiation. Patient started experiencing this day(s) and it has been constant. improves with No relieving factors improve symptom(s), No exacerbating factors reported . Patient notes denies fever/chills and nausea/vomiting. Patient did receive the following treatments prior to arrival, none Related Data Home Medications Medication Instructions Recorded Confirmed methadone 10 mg/mL oral concentrate 15 mg PO DAILY #70 mg 07/23/16 11/28/21 acetaminophen 325 mg tablet 650 mg PO DAILY PRN 01/05/21 11/28/21 (Tylenol) ibuprofen 800 mg tablet 800 mg PO Q8H PRN 01/05/21 11/28/21 cephalexin 500 mg capsule 500 mg PO TID 7 Days #21 cap 11/28/21 Previous Rx's Medication Instructions Recorded cephalexin 500 mg capsule 500 mg PO TID 7 Days #21 cap 11/28/21 Allergies Allergy/AdvReac Type Severity Reaction Status Date / Time No Known Allergies Allergy Unverified 05/17/21 20:09 General Stated Complaint: FlankPain JAISON: 3 Review of Systems Narrative: No fever or vomiting. No respiratory symptoms. Similar to previous episodes of pyelonephritis. Denies vaginal bleeding. No vaginal discharge. 8 systems were reviewed and otherwise negative PFSH All Active Problems (Updated 11/28/21 @ 12:15 by Pradeep Alicea MD) Urinary tract infection (Acute) Pain, dental (Acute) Pain, dental (Acute) Infected dental caries (Acute) Pyelonephritis (Acute) Scoliosis (Chronic) H/O surgical procedure (Chronic) a. through vertical incision Biliary colic (Acute 01/15/15) Medical History (Updated 11/28/21 @ 12:15 by Pradeep Alicea MD) Alcohol abuse Anxiety Drug abuse (10/20/15) random UDS during + opiods and Methadone. Hepatitis C infection 11/2015 > 1 million copies 09/2016 254K copies. 11/2016 Nl LFTs Infected dental carries (10/20/15) Rx for Abx at time of ED visit. 12/11/16 repeat episode: R sided facial pain. Augmentin x10d. Pancreatitis 2014 admitted for gallstone pancreatitis. had rainage of a pseudocyst. underwent cholecystectomy 12/2014 Tobacco use Surgical History section (~2007) [facility] – [place], [place] @ 32w twin delivery. ? uterine scar. 10/30/15 RCD@ 37w. M. Cholecystectomy (01/17/15) laparoscopic cholecystitis and cholelithiasis Family History Mother Substance abuse opiods Alcohol abuse Essential hypertension Mental disorder Depression and anxiety Father Mental disorder Depression and anxiety Sister Mental disorder depression and anxiety Social History Smoking/Tobacco Use Status: Current every day Tobacco Type: cigarettes Smoking risk assessment performed?: Yes Alcohol Intake: current Alcohol Intake frequency: holidays/special occasions only Drug use: Daily Details: on methadone program for prior use history. Nannette/Christian: Yazidism Do you feel safe at home: Yes Do you feel safe in your relationship?: Yes Exam Narrative Exam Narrative: GEN: awake, alert, oriented 3. Pleasant, well groomed, interactive. HEAD: Normocephalic, atraumatic ENT: Mucous membranes moist, oropharynx unremarkable, External ear exam unremarkable EYES: PERRL, EOMI NECK: Full ROM, no PATI, no menigismus CHEST/RESP: Nontender, clear to auscultation bilateral, no wheeze/rhonchi/rales CARDIOVASCULAR: RRR, no murmur, rub hanna. 2+ Rad pulse bilateral ABDOMEN: Soft, minimal left upper and left lower quadrant tenderness without rebound or guarding., no mass. +Bowel sounds. Left flank tender to percussion EXT: Full ROM, no edema, no rash Neuro: Grossly normal neurologic exam, conversant, interactive. Psych: Speech fluent, thoughts congruent, affect normal Course Vital Signs Vital signs: Vital Signs Temperature 36.2 C L 11/28/21 10:36 Pulse 76 11/28/21 10:36 Respiratory Rate 20 11/28/21 10:36 Blood Pressure 123/86 11/28/21 10:36 Pulse Oximetry 98 11/28/21 10:36 Temperature 36.2 C L 11/28/21 10:36 Pulse 76 11/28/21 10:36 Respiratory Rate 20 11/28/21 10:36 Blood Pressure 123/86 11/28/21 10:36 Blood Pressure Position Sitting 11/28/21 10:36 Pulse Oximetry 98 11/28/21 10:36 Oxygen Delivery Method Room Air 11/28/21 10:36 Oxygen Flow Rate 0 11/28/21 10:36 Pain Level 6 11/28/21 10:36 Lab/Test Results Lab/Test Results: Laboratory Tests Range/Units 11/28/21 10:34 Urine Color (Yellow) Yellow Urine Clarity (Clear) Clear Urine pH (5-8) 6.5 Ur Specific [place] (1.005-1.025) >= 1.030 H Urine Protein (Negative) mg/dL Negative Urine Ketones (Negative) mg/dL Negative Urine Blood (Negative) Negative Urine Nitrite (Negative) Negative Urine Bilirubin (Negative) Negative Urine Urobilinogen (Up TO 0.2) EU/dL 0.2 Ur Leukocyte Esterase (Negative) Negative Urine Glucose (Negative) mg/dL Negative
[2021-11-28] MEDS: ACETAMINOPHEN 1,000 MG/100 ML BTL 400 MG IVPB (10:57)
[2021-11-28] MEDS: Ibuprofen 800 MG TAB PO (10:57)
[2021-11-28] MEDS: Normal Saline 1,000 ML 1000 ML IV (10:58)
[2021-11-28 11:00] LABS: Abs Immature Grans 0.02 10^3/uL (0.0-0.06); Absolute Basophil Count 0.02 10^3/uL (0.0-0.2); Absolute Eosinophil Count 0.02 10^3/uL (0.0-0.7); Absolute Monocyte Count 0.39 10^3/uL (0.1-0.8); Absolute Neutrophil Count 4.59 10^3/uL (1.2-6.7); Basophils % 0.3; Eosinophils % 0.3; HCT 41.7 % (36.0-46.0); HGB 13.9 g/dL (11.2-15.7); Immature Grans % 0.3; Lymphocytes % 22.9; MCH 28.5 pg (27.0-33.0); MCHC 33.3 % (32.0-36.0); MCV 85.5 fL (80-95); MPV 8.4 fL (8.0-11.0); Neutrophils % 70.2; Nucleated RBC 0 %; Platelet Count 266 10^3/uL (130-400); RBC 4.88 10^6/uL (3.93-5.22); RDW 12.7 % (11.7-14.6); RDW-SD 39.4 fL; WBC 6.54 10^3/uL (4.4-10.8)
[2021-11-28 11:10] LABS: Anion Gap 8.1 mmol/L (3-11); BUN 14 mg/dL (7-18); CO2 25.9 mmol/L (21.0-32.0); CREATININE 0.7 mg/dL (0.55-1.02); Chloride 107 mmol/L (98-107); Glucose 97 mg/dL (74-106); Sodium 141 mmol/L (136-145)
[2021-11-28] MEDS: cefTRIAXone 1 GM/50 ML BAG IVPB (12:11)
[2021-11-28 12:39] VITALS: BP 108/78; PULSE 79; RESP 20; O2SAT 99
[2021-11-28 12:53] VITALS: BP 109/71; PULSE 74; RESP 16; O2SAT 98
== END 2021-11-28 12:53 | disposition home or self-care (01) ==
PROVIDERS: Emergency Provider Emergency Medicine; PCP Family Medicine
DX: N39.0 Urinary tract infection, site not specified (principal); R10.9 Unspecified abdominal pain
CPT/HCPCS: 80048; 81025; 96361; 96365; 96375; 99284; 74176; 81003; 85025; 99283; J0131; J0696

== ENCOUNTER 2022-03-17 18:54 | Outpatient (REF) | payer MEDICAID, SELFPAY ==
[2022-03-17 16:34] LABS: Bacteria Many HPF (Negative); C & S Indicated? C&S Done As Ordered; Crystals Negative HPF (Negative); Epithelial Cells Few HPF (Negative); Mucus Negative (Negative); Other Cells Few Renal (Negative); WBC >50 HPF (0-5)
== END 2022-03-17 18:55 | disposition home or self-care (01) ==
LOC: LBN 18:54
PROVIDERS: PCP Family Medicine; Visit Provider Nurse Practitioner Family
DX: N39.0 Urinary tract infection, site not specified (principal)
CPT/HCPCS: 87077; 81015; 87086; 87186

== ENCOUNTER 2023-02-04 11:44 | Emergency (ER) | payer MEDICAID, SELFPAY ==
[2023-02-04 11:52] VITALS: BP 114/73; PULSE 83; RESP 14; TEMP 37.1; O2SAT 95
--- NOTE | 2023-02-04 12:05 | W.ED.GENAD ---
Discharge Plan Disposition Patient Disposition: Home Discharge Details Clinical Impression: Blister of toe of right foot Primary Care Provider: Nazario Hoyos ED Provider: Mohit Barahona Home Meds and New Rx's Prescriptions: Continued methadone 10 MG/ML concentrate 15 mg PO DAILY Qty: 70 multivitamin Tablet 1 tab PO DAILY acetaminophen [Tylenol] 325 mg Tablet 650 mg PO DAILY PRN ibuprofen 800 mg Tablet 800 mg PO Q8H PRN Discharge Instructions Instructions: Blister (ED) Additional Instructions: Continue to monitor symptoms and feel free to return to emergency department for any signs of infection which would include purulent drainage, streaking redness, or significant increase of swelling of area. At this time keep area clean and dry and you may perform Epsom salt foot soaks if you need to. If not improving over the next 1 to 2 weeks follow-up with your primary care provider for recheck. Stand Alone Forms: Work Release Referrals: Nazario Hoyos [Primary Care Provider] - Discharge Data Discharge Date/Time-TO BE ENTERED AT DEPARTURE: 02/04/23 12:23 Medical Decision Making Blister to right great toe. No signs of infection, no surrounding erythema to suggest cellulitis, no purulent drainage to suggest abscess. Patient does state recent changing to some open toed sandals that had been rubbing on the area. I feel this may have contributed to blister formation but at this time have no concern for need of significant intervention beyond acute wound care. After discussion of diagnosis and plan of care patient has no further needs, questions, or concerns and states clear understanding to return to the emergency department for any worsening symptoms. This documentation was generated using [employer] dictation system, please disregard any oddities of phrase or misspellings. HPI General Mode of arrival: ambulatory. Date/Time Provider Initiated Documentation: 02/04/23 11:57. Information obtained by: patient and RN notes reviewed. History of Present Illness 32 year old F presents to the emergency department with the chief complaint of Right great toe blister, described as moderate, with intensity rated at 6. Patient started experiencing this week(s) (2) and it has been intermittent. No relieving factors improve symptom(s), No exacerbating factors reported . Patient notes no other symptoms.. Patient did receive the following treatments prior to arrival, other (Topical antibiotic ointment) Related Data Home Medications Medication Instructions Recorded Confirmed methadone 10 mg/mL oral concentrate 15 mg PO DAILY #70 mg 07/23/16 02/04/23 acetaminophen 325 mg tablet 650 mg PO DAILY PRN 01/05/21 02/04/23 (Tylenol) ibuprofen 800 mg tablet 800 mg PO Q8H PRN 01/05/21 02/04/23 multivitamin 1 tab PO DAILY 02/04/23 02/04/23 Allergies Allergy/AdvReac Type Severity Reaction Status Date / Time No Known Allergies Allergy Unverified 02/04/23 12:01 General Stated Complaint: Cellulitis AJISON: 4 Review of Systems Constitutional Constitutional: Denies fever(s) Musculoskeletal Musculoskeletal: Denies arthralgias, Denies joint swelling, Denies limited range of motion, Denies numbness and Denies tingling Integumentary/Breasts Skin/Breast: Reports as per HPI and Reports lesions Neurologic Neurologic: Denies numbness and Denies tingling PFSH All Active Problems (Updated 02/04/23 @ 12:07 by Mohit Barahona NP) Urinary tract infection (Acute) Pain, dental (Acute) Pain, dental (Acute) Infected dental caries (Acute) Pyelonephritis (Acute) Blister of toe of right foot (Acute) Scoliosis (Chronic) H/O surgical procedure (Chronic) a. through vertical incision Biliary colic (Acute 01/15/15) Medical History (Updated 02/04/23 @ 12:07 by Mohit Barahona NP) Alcohol abuse Anxiety Drug abuse (10/20/15) random UDS during + opiods and Methadone. Hepatitis C infection 11/2015 > 1 million copies 09/2016 254K copies. 11/2016 Nl LFTs Infected dental carries (10/20/15) Rx for Abx at time of ED visit. 12/11/16 repeat episode: R sided facial pain. Augmentin x10d. Pancreatitis 2014 admitted for gallstone pancreatitis. had rainage of a pseudocyst. underwent cholecystectomy 12/2014 Tobacco use Surgical History section (~2007) [facility] [place] 32w twin delivery. ? uterine scar. 10/30/15 RCD@ 37w. M. Cholecystectomy (01/17/15) laparoscopic cholecystitis and cholelithiasis Family History Mother Substance abuse opiods Alcohol abuse Essential hypertension Mental disorder Depression and anxiety Father Mental disorder Depression and anxiety Sister Mental disorder depression and anxiety Social History Smoking/Tobacco Use Status: Current every day Tobacco Type: cigarettes Smoking risk assessment performed?: Yes Alcohol Intake: current Alcohol Intake frequency: holidays/special occasions only Drug use: Daily Details: on methadone program for prior use history. Nannette/Scientology: Rastafarian Do you feel safe at home: Yes Do you feel safe in your relationship?: Yes Exam Const General: cooperative, no acute distress and not ill appearing Orientation: alert, awake and oriented x3 HENMT Mouth: moist mucous membranes Resp Effort & Inspection: normal respiratory effort, able to speak in complete sentences and no respiratory distress Cardio Rate: regular rate Rhythm: regular rhythm Pulses: normal peripheral pulses Skin General skin exam: no rashes or lesions noted Neuro General: patient alert, patient awake, patient oriented x3, moves all extremities and no focal motor deficits Sensory Exam: no sensory deficits noted Extrem General: normal exam except as noted Right lower extremity: foot Details: abnormal to inspection (Drained blister to right great toe) Course Vital Signs Vital signs: Vital Signs Temperature 37.1 C 02/04/23 11:52 Pulse 83 02/04/23 11:52 Respiratory Rate 14 02/04/23 11:52 Blood Pressure 114/73 02/04/23 11:52 Pulse Oximetry 95 02/04/23 11:52 Temperature 37.1 C 02/04/23 11:52 Temperature Source Oral 02/04/23 11:52 Pulse 83 02/04/23 11:52 Respiratory Rate 14 02/04/23 11:52 Respiratory Effort Normal 02/04/23 11:58 Blood Pressure 114/73 02/04/23 11:52 Blood Pressure Position Sitting 02/04/23 11:52 Pulse Oximetry 95 02/04/23 11:52 Oxygen Delivery Method Room Air 02/04/23 11:52 Oxygen Flow Rate 0 02/04/23 11:52 Pain Level 5 02/04/23 11:52 Comment pt just came in from hot weather 02/04/23 11:52
== END 2023-02-04 12:23 | disposition home or self-care (01) ==
PROVIDERS: Emergency Provider Nurse Practitioner Family; PCP Family Medicine
DX: S90.421A Blister (nonthermal), right great toe, initial encounter (principal); X58.XXXA Exposure to other specified factors, initial encounter
CPT/HCPCS: 99281; 99282

== ENCOUNTER 2023-02-08 10:11 | Emergency (ER) | payer MEDICAID, SELFPAY ==
[2023-02-08 10:16] VITALS: BP 127/83; PULSE 70; RESP 20; TEMP 36.2; O2SAT 99
--- NOTE | 2023-02-08 11:13 | W.ED.GENAD ---
Discharge Plan Disposition Patient Disposition: Home Condition: Stable Discharge Details Clinical Impression: Wound infection, Tinea pedis, right Primary Care Provider: Nazario Hoyos ED Provider: Marii Blue Home Meds and New Rx's Prescriptions: Continued methadone 10 MG/ML concentrate 15 mg PO DAILY Qty: 70 multivitamin Tablet 1 tab PO DAILY acetaminophen [Tylenol] 325 mg Tablet 650 mg PO DAILY PRN ibuprofen 800 mg Tablet 800 mg PO Q8H PRN Discharge Instructions Instructions: Wound Infection (ED) Additional Instructions: Soak the abdominal area 2-3 times daily with warm water. Apply the antibiotic ointment mupirocin to the abdominal area twice daily and apply to your right foot once daily. Apply the [id number] antifungal cream clotrimazole to the top of your right foot at nighttime for the next 2 to 3 weeks. Call your primary care doctor's office today to schedule follow-up appointment for reevaluation this week. Return immediately to the emergency department if you develop any worsening or new concerning symptoms. Stand Alone Forms: Work Release Discharge Data Discharge Date/Time-TO BE ENTERED AT DEPARTURE: 02/08/23 12:10 Discharge Physician: Marii Blue Medical Decision Making 32-year-old female with a history of anxiety, depression, hepatitis C, former narcotic abuse now on methadone presents for concern for right great toe and bellybutton infection. Her right great notes a 1 x 1 cm scaly mildly erythematous and minimally tender lesion on the dorsal aspect just proximal to her nail with no concerning signs of cellulitis. Discussed that this may be fungal or developing a secondary bacterial infection but do not see indication for labs or imaging at this time. She has two 2 mm open wounds noted to her bellybutton area with minimal surrounding erythema which likely appear consistent with a superficial skin infection. There is no abscess noted. Will cover with mupirocin for the toe and bellybutton at this time. She is advised to apply antifungal treatment to the right great toe at nighttime. Do not see an indication for oral antibiotics at this time but patient advised to continue to monitor. Advised to follow-up with her PCP this week for reevaluation. Usual and customary return precautions given prior to discharge. Medical Records Medical records reviewed: Yes I reviewed the patient's medical records. HPI General Mode of arrival: ambulatory. Date/Time Provider Initiated Documentation: 02/08/23 10:57. Limitations to Documentation: no limitations. Information obtained by: patient. HPI Narrative: Patient is a 32-year-old female with a history of anxiety, depression, hepatitis C, former narcotic drug use now on methadone presents for concern for right toe and bellybutton infection. Patient states she started with an itchy bump on the dorsum of her right great toe near her nail which then has gotten larger and at times painful. She states she was seen here recently for this and was reassured that she did not need antibiotics at that time. Patient states the skin in this area appears to be improving but still has some discomfort. Patient states she had a bellybutton ring pierced 1 month ago and states she noticed in the past few days the area has become red, swollen and painful. She states she remove the ring yesterday. She states she has been soaking the toe in the bellybutton area. She denies any fever or chills. Related Data Home Medications Medication Instructions Recorded Confirmed methadone 10 mg/mL oral concentrate 15 mg PO DAILY #70 mg 07/23/16 02/08/23 acetaminophen 325 mg tablet 650 mg PO DAILY PRN 01/05/21 02/08/23 (Tylenol) ibuprofen 800 mg tablet 800 mg PO Q8H PRN 01/05/21 02/08/23 multivitamin 1 tab PO DAILY 02/04/23 02/08/23 Allergies Allergy/AdvReac Type Severity Reaction Status Date / Time No Known Allergies Allergy Unverified 02/08/23 10:22 General Stated Complaint: RashLesion JAISON: 4 Review of Systems All systems reviewed & are unremarkable except as noted in HPI and below Constitutional Constitutional: Reports as per HPI, Denies chills and Denies fever(s) Eyes Eyes: Denies blurry vision ENT Ears, Nose, Mouth, and Throat: Denies dizziness, Denies sore throat and Denies throat swelling Cardiovascular Cardiovascular: Denies chest pain and Denies dyspnea Respiratory Respiratory: Denies cough and Denies dyspnea Gastrointestinal Gastrointestinal: Denies abdominal pain, Denies diarrhea and Denies vomiting Genitourinary Genitourinary: Denies hematuria and Denies dysuria Musculoskeletal Musculoskeletal: Denies back pain and Denies numbness Integumentary/Breasts Skin/Breast: Reports lesions and Reports rash Neurologic Neurologic: Denies dizziness, Denies localized weakness and Denies numbness Allergic/Immunologic Allergic/Immunologic: Denies throat swelling PFSH All Active Problems (Updated 02/08/23 @ 11:58 by Marii Blue DO) Urinary tract infection (Acute) Pain, dental (Acute) Pain, dental (Acute) Infected dental caries (Acute) Pyelonephritis (Acute) Blister of toe of right foot (Acute) Wound infection (Acute) Tinea pedis, right (Acute) Scoliosis (Chronic) H/O surgical procedure (Chronic) a. through vertical incision Biliary colic (Acute 01/15/15) Medical History (Updated 02/08/23 @ 11:58 by Marii Blue DO) Alcohol abuse Anxiety Drug abuse (10/20/15) random UDS during + opiods and Methadone. Hepatitis C infection 11/2015 > 1 million copies 09/2016 254K copies. 11/2016 Nl LFTs Infected dental carries (10/20/15) Rx for Abx at time of ED visit. 12/11/16 repeat episode: R sided facial pain. Augmentin x10d. Pancreatitis 2014 admitted for gallstone pancreatitis. had rainage of a pseudocyst. underwent cholecystectomy 12/2014 Tobacco use Surgical History section (~2007) [facility] – [place] @ 32w twin delivery. ? uterine scar. 10/30/15 RCD@ 37w. M. Cholecystectomy (01/17/15) laparoscopic cholecystitis and cholelithiasis Family History Mother Substance abuse opiods Alcohol abuse Essential hypertension Mental disorder Depression and anxiety Father Mental disorder Depression and anxiety Sister Mental disorder depression and anxiety Social History Smoking/Tobacco Use Status: Current every day Tobacco Type: cigarettes Smoking risk assessment performed?: Yes Alcohol Intake: current Alcohol Intake frequency: holidays/special occasions only Drug use: Current Sobriety Substance use type: does not use Details: on methadone program for prior use history. Nannette/Restorationist: Gnosticism Do you feel safe at home: Yes Do you feel safe in your relationship?: Yes Exam Const General: cooperative and no acute distress Orientation: alert, awake and oriented x3 [facility] Head: normal to inspection Mouth: oral mucosae normal Eyes General: appearance normal, both eyes and all related structures Neck Neck: normal visual inspection Resp Effort & Inspection: normal respiratory effort and able to speak in complete sentences Cardio Rate: regular rate GI Abdomen image: 1. There is appear to be 2 2 mm open wounds with yellow crusting noted superior and inferior to a belt and buttock piercing. Skin General skin exam: no rashes or lesions noted Neuro General: patient alert, patient awake and patient oriented x3 Motor: muscle tone normal throughout Extrem Ankle/foot/toe images: 1. 1 x 1 cm scaly minimally erythematous and mildly tender lesion noted on the dorsum of the right great toe just proximal to the toenail. Skin is scaling and open. There is no fluctuance, induration, drainage or bleeding. There is no red streaking. Psych Appearance: grossly normal Affect: normal affect Course Vital Signs Vital signs: Vital Signs Temperature 97.2 F L 02/08/23 10:16 Pulse 70 02/08/23 10:16 Respiratory Rate 20 02/08/23 10:16 Blood Pressure 127/83 02/08/23 10:16 Pulse Oximetry 99 02/08/23 10:16 Temperature 97.2 F L 02/08/23 10:16 Temperature Source Tympanic 02/08/23 10:16 Pulse 70 02/08/23 10:16 Respiratory Rate 20 02/08/23 10:16 Respiratory Effort Normal, Non-Labored 02/08/23 10:40 Blood Pressure 127/83 02/08/23 10:16 Pulse Oximetry 99 02/08/23 10:16 Oxygen Delivery Method Room Air 02/08/23 10:16 Oxygen Flow Rate 0 02/08/23 10:16 Pain Level 6 02/08/23 10:16
[2023-02-08] MEDS: Mupirocin 2% Oint. 22 GM TUBE TP (11:42)
== END 2023-02-08 12:10 | disposition home or self-care (01) ==
PROVIDERS: Emergency Provider Physician Assistant; PCP Family Medicine
DX: L08.89 Other specified local infections of the skin and subcutaneous tissue (principal); B35.3 Tinea pedis; F11.20 Opioid dependence, uncomplicated; B19.20 Unspecified viral hepatitis C without hepatic coma
CPT/HCPCS: 99283